=== PATIENT | female | born 1940 | race Caucasian/White ===

== ENCOUNTER 2016-12-17 14:09 | Outpatient (CLI) | payer MEDICARE, OTHER | END 2016-12-17 14:10 | disposition home or self-care (01) | DX: Z79.899 Other long term (current) drug therapy (principal); I10 Essential (primary) hypertension; E55.9 Vitamin D deficiency, unspecified; R73.09 Other abnormal glucose; E78.2 Mixed hyperlipidemia ==

== ENCOUNTER 2017-01-18 09:47 | Outpatient (CLI) | payer MEDICARE, OTHER | END 2017-01-18 09:48 | disposition home or self-care (01) | DX: Z12.31 Encounter for screening mammogram for malignant neoplasm of breast (principal) ==

== ENCOUNTER 2017-12-23 09:28 | Outpatient (CLI) | payer MEDICARE, OTHER ==
[2017-12-23 12:54] LABS: BASOPHILS % (AUTO) 0.4 %; EOSINOPHILS # (AUTO) 0.1 10^3/uL (0.0-0.7); EOSINOPHILS % (AUTO) 2.7 %; HGB - HEMOGLOBIN 12.8 g/dL (12.0-16.0); LYMPHOCYTES # (AUTO) 1.3 10^3/uL (1.5-3.5); LYMPHOCYTES % (AUTO) 26.9 %; MEAN CORPUSCULAR HEMOGLOBIN 32.2 pg (27.0-31.0); MEAN CORPUSCULAR HGB CONC 33.9 g/dL (32.0-36.0); MEAN CORPUSCULAR VOLUME 94.9 fL (81.0-99.0); MEAN PLATELET VOLUME 7.7 fL (7.9-10.8); MONOCYTES # (AUTO) 0.5 10^3/uL (0.0-1.0); MONOCYTES % (AUTO) 10.1 %; NEUTROPHILS # (AUTO) 2.9 10^3/uL (1.5-6.6); NEUTROPHILS % (AUTO) 59.9 %; PLT - PLATELET COUNT 188 10^3/uL (130-450); RED BLOOD COUNT 3.96 10^6/uL (4.20-5.40); WHITE BLOOD COUNT 4.9 x10^3/uL (4.8-10.8)
[2017-12-23 13:20] LABS: ALBUMIN 3.6 g/dL (3.2-5.5); ALBUMIN/GLOBULIN RATIO 1.4 (1.0-2.2); ALKALINE PHOSPHATASE 79 IU/L (42-121); ALT ALANINE AMINOTRANSFERASE 19 IU/L (10-60); AST ASPARTATE AMINOTRANSFERASE 21 IU/L (10-42); BILIRUBIN,TOTAL 0.7 mg/dL (0.2-1.0); BUN - BLOOD UREA NITROGEN 16 mg/dL (6-20); CALCIUM 8.2 mg/dL (8.5-10.3); CARBON DIOXIDE - CO2 26 mmol/L (21-32); CHLORIDE 101 mmol/L (101-111); CHOL/HDL RATIO 3.4 (<4.4); CHOLESTEROL 140 mg/dL; CREATININE 0.8 mg/dL (0.4-1.0); GFR - MDRD 69 (>89); GLUCOSE 95 mg/dL (70-100); HDL CHOLESTEROL 41 mg/dL; LDL CHOLESTEROL,CALCULATED 78 mg/dL; LDL/HDL RATIO 1.9 (<4.4); SODIUM 136 mmol/L (135-145); TOTAL PROTEIN 6.2 g/dL (6.7-8.2); VLDL CHOLESTEROL 21 mg/dL
[2017-12-23 13:35] LABS: HB2 TOTAL 13.3 g/dL; HEMOGLOBIN A1C 0.48 g/dL; HEMOGLOBIN A1C % 5.5 % (4.6-6.2)
== END 2017-12-23 09:29 | disposition home or self-care (01) ==
LOC: LAB.N 09:28
PROVIDERS: ATTEND Nurse Practitioner Primary Care
DX: M81.0 Age-related osteoporosis without current pathological fracture (principal); R73.01 Impaired fasting glucose; I10 Essential (primary) hypertension; E78.5 Hyperlipidemia, unspecified; Z79.899 Other long term (current) drug therapy
CPT/HCPCS: 36415; 80053; 80061; 82306; 83036; 83721; 84443; 85025

== ENCOUNTER 2017-12-31 16:20 | Outpatient (CLI) | payer MEDICARE, OTHER ==
--- NOTE | 2018-01-01 08:48 | XRAY Report ---
EXAM: CHEST RADIOGRAPHY EXAM DATE: 12/31/2017 04:50 PM. CLINICAL HISTORY: COUGH. Fall onto chest December 13. Persistent cough since. COMPARISON: 04/27/2014. TECHNIQUE: 2 views. FINDINGS: Lungs/Pleura: No focal opacities evident. No pleural effusion. No pneumothorax. Normal volumes. Mediastinum: Heart and mediastinal contours are unremarkable. Other: Rounded density projecting over the left humeral head likely is related to overlying garment s nap. IMPRESSION: No definite acute abnormality of the chest. [facility] Referring Provider Line: [phone] SITE ID: [id number]
--- NOTE | 2018-01-01 08:59 | XRAY Report ---
EXAM: LEFT HAND RADIOGRAPHY EXAM DATE: 12/31/2017 04:50 PM. CLINICAL HISTORY: Cough, hand pain left. Fall on outstretched hand injury December 13, still has swelling , bruising and decreased range of motion. COMPARISON: 04/22/2007 3 view exam. TECHNIQUE: 2 views. FINDINGS: Bones: New fracture of the mid to medial aspect of the base of the fifth metacarpal with intra-articu lar extension. Significant displacement is not demonstrated on these 2 views. Old, healed fracture de formity of the base of the fourth proximal phalanx. Joints: No subluxation. Degenerative disease, greatest at the thumb IP joint. Soft Tissues: Medial hand/wrist soft tissue swelling. IMPRESSION: 1. Two-view radiography demonstrates an intra-articular fracture of the base of the fifth metacarpal, without substantial displacement demonstrated. 2. Chronic findings, as above. [facility] Referring Provider Line: [phone] SITE ID: [id number]
== END 2017-12-31 16:21 | disposition home or self-care (01) ==
LOC: DI 16:20
PROVIDERS: ATTEND Nurse Practitioner Primary Care
DX: R05 Cough (principal); S62.346A Nondisplaced fracture of base of fifth metacarpal bone, right hand, initial encounter for closed fracture
CPT/HCPCS: 71046

== ENCOUNTER 2018-01-03 13:33 | Outpatient (CLI) | payer MEDICARE, OTHER ==
--- NOTE | 2018-01-03 16:05 | DEXA Report ---
DEXA SCAN: 01/03/2018 CLINICAL INDICATION: Postmenopausal. TECHNIQUE: Dual energy x-ray absorptiometry (DXA) was performed on a clickTRUE system. Regions measured are the AP spine, femoral neck, and, if needed, forearm. COMPARISON: None. In accordance with the International Society for Clinical Densitometry (ISCD) guidelines, data from previous exams may be reanalyzed using current recommendations and techniques. This is done to allow a more accurate basis for comparison with the current study. FINDINGS Data for the lumbar spine is as follows: REGION BMD (g/cm/cm) T-SCORE Z-SCORE L1 0.723 -3.4 -1.6 L2 0.877 -2.7 -0.9 L3 0.957 -2.0 -0.3 L4 1.142 -0.5 1.3 L1-L4 0.943 -2.0 -0.2 L2-L4 1.001 -1.7 0.1 NOTE: All evaluable vertebrae are used for classification. Data for the hip is as follows: REGION BMD (g/cm/cm) T-SCORE Z-SCORE Neck 0.763 -2.0 0.1 TOTAL 0.708 -2.4 -0.5 NOTE: The femoral neck or total proximal femur, whichever is lowest, is used for classification. IMPRESSION WHO CLASSIFICATION BASED ON THE INTERNATIONAL REFERENCE STANDARD IS OSTEOPENIA. FRACTURE RISK IS INCREASED. RECOMMENDATION: Patients with diagnosis of osteoporosis or osteopenia should have regular bone mineral density assessment. For those eligible for Medicare, routine testing is allowed once every 2 years. Testing frequency can be increased for patients who have rapidly progressing disease or for those who are receiving medical therapy to restore bone mass. COMMENT World Health Organization (WHO) definitions for osteoporosis and osteopenia: NORMAL BMD: T-score at 1.0 or higher, fracture risk is low. OSTEOPENIA BMD: T-score between 1.0 and -2.5, fracture risk is increased. OSTEOPOROSIS BMD: T-score at 2.5 or lower, fracture risk high. National Osteoporosis Foundation recommends: 1. Obtain adequate dietary calcium (at least 1200 mg per day) and vitamin D (400 -800 international units per day). 2. Participate, as appropriate, in regular weightbearing and muscle- strengthening exercise. 3. Avoid tobacco use and reduce alcohol and caffeine intake. 4. For more detailed information see the website at www.NOF.org. TD: 01/03/2018 15:24 MTDD
== END 2018-01-03 13:34 | disposition home or self-care (01) ==
LOC: DI 13:33
PROVIDERS: ATTEND Nurse Practitioner Primary Care
DX: M85.89 Other specified disorders of bone density and structure, multiple sites (principal)
CPT/HCPCS: 77080

== ENCOUNTER 2018-02-11 09:11 | Outpatient (CLI) | payer MEDICARE, OTHER ==
[2018-02-11 09:30] LABS: BASOPHILS # (AUTO) 0.1 10^3/uL (0.0-0.1); BASOPHILS % (AUTO) 0.9 %; EOSINOPHILS # (AUTO) 0.5 10^3/uL (0.0-0.7); EOSINOPHILS % (AUTO) 6.2 %; HGB - HEMOGLOBIN 13.6 g/dL (12.0-16.0); LYMPHOCYTES # (AUTO) 1.7 10^3/uL (1.5-3.5); LYMPHOCYTES % (AUTO) 19.7 %; MEAN CORPUSCULAR HEMOGLOBIN 31.6 pg (27.0-31.0); MEAN CORPUSCULAR HGB CONC 33.4 g/dL (32.0-36.0); MEAN CORPUSCULAR VOLUME 94.6 fL (81.0-99.0); MEAN PLATELET VOLUME 7.2 fL (7.9-10.8); MONOCYTES # (AUTO) 0.9 10^3/uL (0.0-1.0); NEUTROPHILS # (AUTO) 5.5 10^3/uL (1.5-6.6); NEUTROPHILS % (AUTO) 63.2 %; PLT - PLATELET COUNT 235 10^3/uL (130-450); RED BLOOD COUNT 4.31 10^6/uL (4.20-5.40); RED CELL DISTRIBUTION WIDTH 13.9 % (12.0-15.0); WHITE BLOOD COUNT 8.7 x10^3/uL (4.8-10.8)
[2018-02-11 09:49] LABS: ALBUMIN 4.2 g/dL (3.2-5.5); ALBUMIN/GLOBULIN RATIO 1.4 (1.0-2.2); BILIRUBIN,TOTAL 1.2 mg/dL (0.2-1.0); CALCIUM 9.3 mg/dL (8.5-10.3); CREATININE 0.9 mg/dL (0.4-1.0); TOTAL PROTEIN 7.2 g/dL (6.7-8.2)
--- NOTE | 2018-02-11 10:16 | XRAY Report ---
TWO-VIEW CHEST: 02/11/2018 CLINICAL INDICATION: Respiratory crackles. COMPARISON: 12/31/2017. FINDINGS: Frontal and lateral views of the chest demonstrate a normal cardiac silhouette. The lungs remain clear. No effusion or pneumothorax is present. IMPRESSION: NO EVIDENCE OF ACUTE CARDIOPULMONARY DISEASE. NO SIGNIFICANT INTERVAL CHANGE. TD: 02/11/2018 10:15
== END 2018-02-11 09:12 | disposition home or self-care (01) ==
LOC: LAB 09:11
PROVIDERS: ATTEND Physician Assistant Medical
DX: R09.89 Other specified symptoms and signs involving the circulatory and respiratory systems (principal); R60.0 Localized edema
CPT/HCPCS: 36415; 71046; 80053; 83880; 85025

== ENCOUNTER 2018-04-16 08:00 | Outpatient (CLI) | payer MEDICARE, OTHER | END 2018-04-16 23:59 | LOC: LAB.R 08:00 | PROVIDERS: ATTEND Obstetrics & Gynecology | DX: N76.4 Abscess of vulva (principal) | CPT/HCPCS: 87070; 87077; 87181; 87205 ==

== ENCOUNTER 2019-05-28 17:02 | Emergency (ER) | payer MEDICARE, OTHER ==
[2019-05-28] MEDS ORDERED: oxyCODONE 5 MG TABLET PO STA (17:12)
[2019-05-28] MEDS ORDERED: ONDANSETRON ODT 4 MG TABLET TL STA (17:12)
[2019-05-28] MEDS ORDERED: TETANUS/DIPHTHERIA/PERTUSSIS 0.5 ML SYRINGE IM ONE (17:12)
--- NOTE | 2019-05-28 17:13 | ED Physician Documentation ---
PD HPI HEAD INJURY - Stated complaint Stated Complaint: GLF/HEAD INJ/CONFUSION/DIZZY - History obtained from History obtained from: Patient - History of Present Illness Mechanism of head injury: Fell (She tripped and fell over her cat hitting the ground. She does not remember it. Loss of consciousness is not clear. She has an increasing headache on the right side. She is also mildly nauseous. No other injury) Review of Systems Ten Systems: 10 systems reviewed and negative Constitutional: denies: Fever, Chills Ears: denies: Loss of hearing, Ear pain Nose: denies: Rhinorrhea / runny nose, Congestion Respiratory: denies: Dyspnea, Cough GI: reports: Nausea. 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 Neuro:  HEENT: Cataracts - Present Medications Home Medications: Ambulatory Orders Medication Instructions Recorded Confirmed DULoxetine [Cymbalta] 20 mg PO DAILY 08/11/13 08/23/16 Lisinopril [Zestril] 5 mg PO DAILY 08/11/13 08/23/16 Simvastatin [Zocor] 5 mg PO DAILY 08/11/13 08/23/16 hydroCHLOROthiazide [Hydrodiuril] 12.5 mg PO DAILY 08/11/13 08/23/16 - Allergies Allergies/Adverse Reactions: Allergies Allergy/AdvReac Type Severity Reaction Status Date / Time No Known Drug Allergies Allergy Verified 05/28/19 17:13 - Social History Does the pt smoke?: No Smoking Status: Never smoker Does the pt drink ETOH?: No Does the pt have substance abuse?: No - Immunizations Immunizations are current?: Yes PD ED PE NORMAL - Vitals Vital signs reviewed: Yes - General General: Alert and oriented X 3, No acute distress - HEENT HEENT: PERRL, EOMI, Other (There is a puncture wound on the right scalp just posterior and superior to the lutheran, it is too small to require specific wound care.) - Neck Neck: Other (Very mild upper C-spine tenderness) - Cardiac Cardiac: RRR, No murmur - Respiratory Respiratory: No respiratory distress, Clear bilaterally - Abdomen Abdomen: Soft, Non tender - Back Back: No spinal TTP - Extremities Extremities: No deformity, No tenderness to palpate, Normal ROM s pain, No edema, No calf tenderness / cord - Neuro Neuro: Alert and oriented X 3, No motor deficit, No sensory deficit, Normal speech Results - Vitals Vitals: Vital Signs - 24 hr 05/28/19 17:09 Temperature 36.4 C L Heart Rate 72 Respiratory 16 Rate Blood Pressure 140/81 H O2 Saturation 100 Oxygen O2 Source Room air - Rads (name of study) Ct Head Radiology: EMP read contemporaneously (ventriculomegaly, sm vess ischemic dz) CT C spine Radiology: EMP read contemporaneously (NAD) PD MEDICAL DECISION MAKING - ED course ED course: 79-year-old woman with a fall today, tripped over a cat and some concussive symptoms. Head CT and cervical spine CT are normal, but there is a concern for ventriculomegaly. She has not had any trouble with incontinence. She says her memory is fine but the daughter disagrees. Outpatient work-up for potential normal hydrocephalus was advised with her PCP. Departure - Departure Disposition: 01 Home, Self Care Clinical Impression: Concussion Qualifiers: Encounter type: initial encounter Loss of consciousness presence/duration: with LOC of 30 min or less Qualified Code(s): S06.0X1A - Concussion with loss of consciousness of 30 minutes or less, initial encounter Condition: Good Record reviewed to determine appropriate education?: Yes Instructions: ED Head Injury Closed Comments: As discussed, your head CT is concerning for something called "normal pressure hydrocephalus." Discussed this with your primary care physician in follow-up. Return for new or worsening symptoms.
--- NOTE | 2019-05-28 17:54 | CT Report ---
Reason: head inj Procedure Date: 05/28/2019 Accession Number: [id number] / [id number] Procedure: CT - CERVICAL SPINE WO CPT Code: FULL RESULT: EXAM: CT CERVICAL SPINE WITHOUT CONTRAST DATE: 05/28/2019 05:30 PM. HISTORY: Head inj. COMPARISONS: None. TECHNIQUE: Thin-section axial images were acquired of the cervical spine without contrast. Post-processing: Coronal and sagittal reformats. Other: None. In accordance with CT protocol optimization, one or more of the following dose reduction techniques were utilized for this exam: automated exposure control, adjustment of mA and/or KV based on patient size, or use of iterative reconstructive technique. FINDINGS: Alignment: No evidence of dislocation. Bones: No fracture or bone lesion. Interspace Levels/Facets: There is moderate mid and lower cervical spine degenerative disease. Spinal canal: No significant abnormalities are seen. Other: No evidence of prevertebral soft tissue swelling or apical pneumothorax. IMPRESSION: No evidence of cervical spine fracture or dislocation. [facility]
--- NOTE | 2019-05-28 17:56 | CT Report ---
Reason: head inj Procedure Date: 05/28/2019 Accession Number: [id number] / [id number] Procedure: CT - HEAD WO CPT Code: FULL RESULT: EXAM: CT HEAD EXAM DATE: 05/28/2019 05:30 PM. CLINICAL HISTORY: Head inj. COMPARISON: None. TECHNIQUE: Multiaxial CT images were obtained from the foramen magnum to the vertex. Reformats: Sagittal and coronal. IV contrast: None. In accordance with CT protocol optimization, one or more of the following dose reduction techniques were utilized for this exam: automated exposure control, adjustment of mA and/or KV based on patient size, or use of iterative reconstructive technique. FINDINGS: Parenchyma: No intraparenchymal hemorrhage. No evidence of mass, midline shift, or CT findings of infarction. Yanez-white differentiation is distinct. Periventricular white matter hypodensity likely represents small vessel ischemic disease. Extraaxial Spaces: Normal for age. No subdural or epidural collections identified. Ventricles: There is ventriculomegaly. No acute abnormalities are seen. Sinuses and Orbits: No evidence of sinusitis. There is linear hyperdensity surrounding the left orbital globe. Bones: No evidence of fracture or calvarial defect. Other: None. IMPRESSION: 1. No acute intracranial CT abnormality. 2. There is mild ventriculomegaly. 3. Periventricular white matter hypodensity likely represents small vessel ischemic disease. [facility]
[2019-05-28 18:06] VITALS: BP 129/78
== END 2019-05-28 18:08 | disposition home or self-care (01) ==
LOC: ED 17:02
DX: S06.0X1A Concussion with loss of consciousness of 30 minutes or less, initial encounter (principal); S01.03XA Puncture wound without foreign body of scalp, initial encounter; W01.0XXA Fall on same level from slipping, tripping and stumbling without subsequent striking against object, initial encounter; Y92.009 Unspecified place in unspecified non-institutional (private) residence as the place of occurrence of the external cause; Z23 Encounter for immunization; G93.89 Other specified disorders of brain; M50.30 Other cervical disc degeneration, unspecified cervical region; I10 Essential (primary) hypertension
CPT/HCPCS: 70450; 72125; 90471; 90715; 99284; A9270; Q0162

== ENCOUNTER → 2019-06-03 | Outpatient (CLI) | payer MEDICARE, OTHER ==
[2019-06-03 18:53] LABS: BASOPHILS % (AUTO) 0.4 %; EOSINOPHILS # (AUTO) 0.3 10^3/uL (0.0-0.7); EOSINOPHILS % (AUTO) 3.5 %; LYMPHOCYTES # (AUTO) 1.9 10^3/uL (1.5-3.5); LYMPHOCYTES % (AUTO) 22.4 %; MEAN CORPUSCULAR HEMOGLOBIN 30.9 pg (27.0-31.0); MEAN CORPUSCULAR HGB CONC 31.6 g/dL (32.0-36.0); MEAN CORPUSCULAR VOLUME 97.9 fL (81.0-99.0); MEAN PLATELET VOLUME 9.6 fL (7.9-10.8); MONOCYTES # (AUTO) 0.7 10^3/uL (0.0-1.0); MONOCYTES % (AUTO) 8.5 %; NEUTROPHILS # (AUTO) 5.4 10^3/uL (1.5-6.6); NEUTROPHILS % (AUTO) 64.7 %; PLT - PLATELET COUNT 241 10^3/uL (130-450); RED BLOOD COUNT 4.21 10^6/uL (4.20-5.40); RED CELL DISTRIBUTION WIDTH 13.2 % (12.0-15.0); WHITE BLOOD COUNT 8.4 x10^3/uL (4.8-10.8)
[2019-06-03 19:18] LABS: ALBUMIN 4.1 g/dL (3.2-5.5); ALBUMIN/GLOBULIN RATIO 1.4 (1.0-2.2); BILIRUBIN,TOTAL 0.8 mg/dL (0.2-1.0); CALCIUM 9.1 mg/dL (8.5-10.3); CREATININE 0.9 mg/dL (0.4-1.0)
== END ==
LOC: LAB.WCP 15:29
PROVIDERS: ATTEND Family Medicine
DX: R41.3 Other amnesia (principal)
CPT/HCPCS: 36415; 80053; 82607; 83921; 84443; 85025

== ENCOUNTER 2019-09-18 08:55 | Outpatient (CLI) | payer MEDICARE, OTHER ==
[2019-09-18 12:40] LABS: BASOPHILS % (AUTO) 0.5 %; EOSINOPHILS # (AUTO) 0.2 10^3/uL (0.0-0.7); EOSINOPHILS % (AUTO) 3.9 %; HGB - HEMOGLOBIN 13.2 g/dL (12.0-16.0); LYMPHOCYTES # (AUTO) 1.2 10^3/uL (1.5-3.5); LYMPHOCYTES % (AUTO) 19.8 %; MEAN CORPUSCULAR HEMOGLOBIN 31.9 pg (27.0-31.0); MEAN CORPUSCULAR HGB CONC 32.4 g/dL (32.0-36.0); MEAN CORPUSCULAR VOLUME 98.6 fL (81.0-99.0); MEAN PLATELET VOLUME 9.9 fL (7.9-10.8); MONOCYTES # (AUTO) 0.6 10^3/uL (0.0-1.0); MONOCYTES % (AUTO) 10.1 %; NEUTROPHILS # (AUTO) 3.9 10^3/uL (1.5-6.6); NEUTROPHILS % (AUTO) 65.4 %; PLT - PLATELET COUNT 224 10^3/uL (130-450); RED BLOOD COUNT 4.14 10^6/uL (4.20-5.40); RED CELL DISTRIBUTION WIDTH 13.2 % (12.0-15.0); WHITE BLOOD COUNT 5.9 x10^3/uL (4.8-10.8)
[2019-09-18 12:51] LABS: ALBUMIN 3.8 g/dL (3.2-5.5); ALBUMIN/GLOBULIN RATIO 1.3 (1.0-2.2); ALKALINE PHOSPHATASE 86 IU/L (42-121); ALT ALANINE AMINOTRANSFERASE 12 IU/L (10-60); AST ASPARTATE AMINOTRANSFERASE 14 IU/L (10-42); BILIRUBIN,TOTAL 1.1 mg/dL (0.2-1.0); BUN - BLOOD UREA NITROGEN 19 mg/dL (6-20); CALCIUM 8.8 mg/dL (8.5-10.3); CARBON DIOXIDE - CO2 28 mmol/L (21-32); CHLORIDE 106 mmol/L (101-111); CHOL/HDL RATIO 2.9 (<4.4); CHOLESTEROL 150 mg/dL; CREATININE 0.8 mg/dL (0.4-1.0); GFR - MDRD 69 (>89); GLUCOSE 103 mg/dL (70-100); HDL CHOLESTEROL 52 mg/dL; LDL CHOLESTEROL,CALCULATED 76 mg/dL; LDL/HDL RATIO 1.5 (<4.4); SODIUM 140 mmol/L (135-145); TOTAL PROTEIN 6.7 g/dL (6.7-8.2); VLDL CHOLESTEROL 22 mg/dL
[2019-09-18 13:05] LABS: HB2 TOTAL 13.3 g/dL; HEMOGLOBIN A1C 0.58 g/dL; HEMOGLOBIN A1C % 6.1 % (4.6-6.2)
== END 2019-09-18 23:59 | disposition home or self-care (01) ==
LOC: LAB.WCP 08:55
PROVIDERS: ATTEND Family Medicine
DX: E78.5 Hyperlipidemia, unspecified (principal); R73.01 Impaired fasting glucose; I10 Essential (primary) hypertension
CPT/HCPCS: 36415; 80053; 80061; 82607; 83036; 83721; 84443; 85025

== ENCOUNTER 2020-03-31 16:24 | Outpatient (CLI) | payer MEDICARE, OTHER ==
--- NOTE | 2020-04-01 08:49 | XRAY Report ---
PROCEDURE: Wrist 4 View LT INDICATIONS: LEFT WRIST PAIN TECHNIQUE: 4 views of the wrist were acquired. COMPARISON: Left hand radiograph dated 12/31/2017. FINDINGS: Bones: No fractures or dislocations. No suspicious bony lesions. Mild osteoarthritic changes throu ghout wrist joints are seen more prominent at first CMC joint. Widening of scapholunate interval is s een concerning for scapholunate ligament injury. Scaphoid view: Scaphoid is grossly intact. Small intraosseous cysts in mid to distal scaphoid is not ed. Soft tissues: No suspicious soft tissue calcifications. Soft tissue swelling around wrist joint is seen. IMPRESSION: No gross acute left wrist fracture or dislocation. Wrist soft tissue swelling. Mild wrist joint osteo arthritis. Widening of scapholunate interval suggestive of scapholunate ligament injury. Reviewed by: Dutch Fowler MD on 04/01/2020 8:48 AM PDT Approved by: Dutch Fowler MD on 04/01/2020 8:48 AM PDT Station ID: [id number]
== END 2020-03-31 16:25 | disposition home or self-care (01) ==
LOC: DI 16:24
PROVIDERS: ATTEND Physician Assistant
DX: M19.032 Primary osteoarthritis, left wrist (principal); M79.89 Other specified soft tissue disorders

== ENCOUNTER 2020-12-19 13:34 | Outpatient (CLI) | payer MEDICARE, OTHER ==
--- NOTE | 2020-12-19 14:46 | XRAY Report ---
PROCEDURE: Chest 2 View X-Ray INDICATIONS: BRONCHITIS TECHNIQUE: 2 view(s) of the chest. COMPARISON: 02/11/2018 chest x-ray FINDINGS: Surgical changes and devices: None. Lungs and pleura: No pleural effusions or pneumothorax. Lungs are clear. Mediastinum: Mediastinal contours are normal. Heart size is normal. Bones and chest wall: No suspicious bony abnormalities. Soft tissues appear unremarkable. IMPRESSION: No acute process. Reviewed by: Js Christianson MD on 12/19/2020 2:44 PM PDT Approved by: Js Christianson MD on 12/19/2020 2:44 PM PDT Station ID: [id number]
== END 2020-12-19 23:59 | disposition home or self-care (01) ==
LOC: DI.N 13:34
PROVIDERS: ATTEND Physician Assistant Medical
DX: J40 Bronchitis, not specified as acute or chronic (principal)
CPT/HCPCS: 71046; U0004

== ENCOUNTER 2021-01-24 08:00 | Outpatient (CLI) | payer MEDICARE, OTHER ==
[2021-01-24 13:23] LABS: BASOPHILS % (AUTO) 0.6 %; EOSINOPHILS # (AUTO) 0.2 10^3/uL (0.0-0.7); EOSINOPHILS % (AUTO) 3.9 %; HCT - HEMATOCRIT 44.1 % (37.0-47.0); HGB - HEMOGLOBIN 13.7 g/dL (12.0-16.0); LYMPHOCYTES # (AUTO) 1.4 10^3/uL (1.5-3.5); MEAN CORPUSCULAR HEMOGLOBIN 30.7 pg (27.0-31.0); MEAN CORPUSCULAR HGB CONC 31.1 g/dL (32.0-36.0); MEAN CORPUSCULAR VOLUME 98.9 fL (81.0-99.0); MEAN PLATELET VOLUME 9.9 fL (7.9-10.8); MONOCYTES # (AUTO) 0.5 10^3/uL (0.0-1.0); MONOCYTES % (AUTO) 8.1 %; NEUTROPHILS % (AUTO) 64.1 %; PLT - PLATELET COUNT 222 10^3/uL (130-450); RED BLOOD COUNT 4.46 10^6/uL (4.20-5.40); RED CELL DISTRIBUTION WIDTH 13.5 % (12.0-15.0); WHITE BLOOD COUNT 6.2 x10^3/uL (4.8-10.8)
[2021-01-24 13:46] LABS: ALBUMIN/GLOBULIN RATIO 1.5 (1.0-2.2); ALKALINE PHOSPHATASE 82 IU/L (42-121); ALT ALANINE AMINOTRANSFERASE 12 IU/L (10-60); AST ASPARTATE AMINOTRANSFERASE 16 IU/L (10-42); BILIRUBIN,TOTAL 1.2 mg/dL (0.2-1.0); BUN - BLOOD UREA NITROGEN 17 mg/dL (6-20); CALCIUM 9.1 mg/dL (8.5-10.3); CARBON DIOXIDE - CO2 27 mmol/L (21-32); CHLORIDE 110 mmol/L (101-111); CHOL/HDL RATIO 4.2 (<4.4); CHOLESTEROL 252 mg/dL; CREATININE 0.8 mg/dL (0.4-1.0); GFR - MDRD 69 (>89); GLUCOSE 98 mg/dL (70-100); HDL CHOLESTEROL 60 mg/dL; LDL CHOLESTEROL,CALCULATED 159 mg/dL; LDL/HDL RATIO 2.7 (<4.4); POTASSIUM 4.2 mmol/L (3.5-5.0); SODIUM 143 mmol/L (135-145); TOTAL PROTEIN 6.6 g/dL (6.7-8.2); TRIGLYCERIDES 165 mg/dL; VLDL CHOLESTEROL 33 mg/dL
[2021-01-24 13:52] LABS: THYROID STIMULATING HORMONE 4.68 uIU/mL (0.34-5.60)
[2021-01-24 13:53] LABS: ESTIMATED AVERAGE GLUCOSE 114 mg/dL (70-100); HEMOGLOBIN A1c% 5.6 % (4.27-6.07)
[2021-01-24 13:59] LABS: CREATININE,URINE 211.5 mg/dL; MICROALBUM/CREATININE RATIO,UR 1.9 ug/mg (<30.0); MICROALBUMIN,URINE 0.4 mg/dL (0-300.0)
== END 2021-01-24 23:59 | disposition home or self-care (01) ==
LOC: LAB.WCP 08:00
PROVIDERS: ATTEND Internal Medicine
DX: I10 Essential (primary) hypertension (principal); E78.5 Hyperlipidemia, unspecified; M81.0 Age-related osteoporosis without current pathological fracture; R73.01 Impaired fasting glucose; E53.8 Deficiency of other specified B group vitamins
CPT/HCPCS: 36415; 80053; 80061; 82043; 82306; 82570; 82607; 83036; 83721; 84443; 85025

== ENCOUNTER 2021-09-25 09:47 | Outpatient (CLI) | payer MEDICARE, OTHER ==
[2021-09-25 12:37] LABS: BASOPHILS % (AUTO) 0.6 %; EOSINOPHILS # (AUTO) 0.2 10^3/uL (0.0-0.7); EOSINOPHILS % (AUTO) 2.4 %; HCT - HEMATOCRIT 43.9 % (37.0-47.0); HGB - HEMOGLOBIN 14.1 g/dL (12.0-16.0); LYMPHOCYTES # (AUTO) 1.6 10^3/uL (1.5-3.5); LYMPHOCYTES % (AUTO) 23.7 %; MEAN CORPUSCULAR HGB CONC 32.1 g/dL (32.0-36.0); MEAN CORPUSCULAR VOLUME 96.5 fL (81.0-99.0); MEAN PLATELET VOLUME 9.5 fL (7.9-10.8); MONOCYTES # (AUTO) 0.5 10^3/uL (0.0-1.0); MONOCYTES % (AUTO) 8.3 %; NEUTROPHILS # (AUTO) 4.2 10^3/uL (1.5-6.6); NEUTROPHILS % (AUTO) 64.7 %; PLT - PLATELET COUNT 210 10^3/uL (130-450); RED BLOOD COUNT 4.55 10^6/uL (4.20-5.40); WHITE BLOOD COUNT 6.5 x10^3/uL (4.8-10.8)
[2021-09-25 12:41] LABS: ESTIMATED AVERAGE GLUCOSE 120 mg/dL (70-100); HEMOGLOBIN A1c% 5.8 % (4.27-6.07)
[2021-09-25 12:45] LABS: THYROID STIMULATING HORMONE 5.06 uIU/mL (0.34-5.60)
[2021-09-25 12:48] LABS: CREATININE,URINE 228.5 mg/dL; MICROALBUM/CREATININE RATIO,UR 5.3 ug/mg (<30.0); MICROALBUMIN,URINE 1.2 mg/dL (0-300.0)
[2021-09-25 13:34] LABS: ALBUMIN 3.8 g/dL (3.2-5.5); ALBUMIN/GLOBULIN RATIO 1.4 (1.0-2.2); ALKALINE PHOSPHATASE 83 IU/L (42-121); ALT ALANINE AMINOTRANSFERASE 13 IU/L (10-60); AST ASPARTATE AMINOTRANSFERASE 15 IU/L (10-42); BILIRUBIN,TOTAL 1.3 mg/dL (0.2-1.0); BUN - BLOOD UREA NITROGEN 17 mg/dL (6-20); CALCIUM 9.2 mg/dL (8.5-10.3); CARBON DIOXIDE - CO2 30 mmol/L (21-32); CHLORIDE 103 mmol/L (101-111); CHOL/HDL RATIO 2.2 (<4.4); CHOLESTEROL 135 mg/dL; CREATININE 0.9 mg/dL (0.4-1.0); GFR - MDRD 60 (>89); GLUCOSE 102 mg/dL (70-100); HDL CHOLESTEROL 61 mg/dL; LDL CHOLESTEROL,CALCULATED 54 mg/dL; LDL/HDL RATIO 0.9 (<4.4); POTASSIUM 4.2 mmol/L (3.5-5.0); SODIUM 140 mmol/L (135-145); TOTAL PROTEIN 6.5 g/dL (6.7-8.2); TRIGLYCERIDES 102 mg/dL; VLDL CHOLESTEROL 20 mg/dL
== END 2021-09-25 23:59 | disposition home or self-care (01) ==
LOC: LAB.WCP 09:47
PROVIDERS: ATTEND Internal Medicine
DX: I10 Essential (primary) hypertension (principal); E78.5 Hyperlipidemia, unspecified; R73.01 Impaired fasting glucose; E53.8 Deficiency of other specified B group vitamins; G31.84 Mild cognitive impairment of uncertain or unknown etiology
CPT/HCPCS: 36415; 80053; 80061; 82043; 82570; 82607; 83036; 83721; 84443; 85025

== ENCOUNTER 2022-05-07 11:38 | Emergency (ER) | payer MEDICARE, OTHER ==
[2022-05-07] MEDS ORDERED: TETANUS/DIPHTHERIA/PERTUSSIS 0.5 ML SYRINGE IM ONE (12:00)
[2022-05-07] MEDS ORDERED: LIDOCAINE-EPINEPH-TETRACAINE 3 ML SYRINGE TOP STA (12:01)
--- NOTE | 2022-05-07 12:56 | CT Report ---
PROCEDURE: HEAD WO INDICATIONS: GLF, HEAD INJURY TECHNIQUE: Noncontrast 4.5 mm thick angled axial sections acquired from the foramen magnum to the vertex. For r adiation dose reduction, the following was used: automated exposure control, adjustment of mA and/or kV according to patient size. COMPARISON: 05/28/2019 FINDINGS: Image quality: Excellent. CSF spaces: Basal cisterns are patent. No extra-axial fluid collections. Stable ventriculomegaly. Brain: No midline shift. No intracranial masses or hemorrhage. Yanez-white matter interface is norm al. Diffuse volume loss, with stable ventriculomegaly and moderate to severe small vessel ischemic ch edwar. Skull and face: Calvarium and visualized facial bones are intact, without suspicious lesions. Sinuses: Visualized sinuses and mastoids are clear. IMPRESSION: 1. Stable ventriculomegaly, diffuse volume loss, moderate to severe small vessel ischemic change. 2. No evidence of acute intracranial process. Reviewed by: Andre De La Paz MD on 05/07/2022 11:54 AM HEIDI Approved by: Andre De La Paz MD on 05/07/2022 11:54 AM HEIDI Station ID: [id number]
--- NOTE | 2022-05-07 12:56 | XRAY Report ---
PROCEDURE: Ankle 3 View LT INDICATIONS: GLF, PAIN TECHNIQUE: 3 views of the ankle were acquired. COMPARISON: None FINDINGS: Bones: Oblique fracture involving lateral malleolus is seen without significant displacement at fract ure site. Ankle mortise is normally aligned. No suspicious bony lesions. Soft tissues: Lateral ankle soft tissue swelling is seen. No tibiotalar joint effusion. Achilles te ndon appears normal. IMPRESSION: Nondisplaced lateral malleolus fracture with overlying soft tissue swelling. Intact ankl e mortise. Reviewed by: Dutch Fowler MD on 05/07/2022 11:55 AM HEIDI Approved by: Dutch Fowler MD on 05/07/2022 11:55 AM HEIDI Station ID: [id number]
--- NOTE | 2022-05-07 12:59 | CT Report ---
PROCEDURE: CERVICAL SPINE WO INDICATIONS: GLF TECHNIQUE: Noncontrast 3 mm thick sections acquired from the skull base to the T4 level. Sagittal and coronal r eformats were then constructed. For radiation dose reduction, the following was used: automated exp osure control, adjustment of mA and/or kV according to patient size. COMPARISON: 05/28/2019. FINDINGS: Image quality: Excellent. Bones: No fractures or dislocations. Visualized superior ribs are intact. Bilateral facet arthropat hy, most notably at C3-C4 and C4-C5. Multilevel bony foraminal narrowing, most notably at C3-4 throug h C5-6. Soft tissues: Prevertebral soft tissues are normal in thickness. No paravertebral hematomas. No ap ical pneumothoraces. IMPRESSION: 1. No evidence of acute cervical fracture or dislocation. 2. 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 Reviewed by: Anrde De La Paz MD on 05/07/2022 11:57 AM HEIDI Approved by: Andre De La Paz MD on 05/07/2022 11:57 AM HEIDI Station ID: [id number]
--- NOTE | 2022-05-07 13:25 | ED Physician Documentation ---
History of Present Illness - Stated complaint Stated Complaint: GLF - Chief complaint Chief Complaint: Laceration - History obtained from History obtained from: Family - History of Present Illness Timing: Last night - Additonal information Additional information: 82-year-old female with history of dementia presents for evaluation after fall. Patient does not remember falling, however her stated that he heard a thump and found her on the floor of the kitchen. Patient has a laceration on the back of her head and is complaining of left ankle pain. states that patient is acting at her baseline, she does not take blood thinners. Does not know when her last tetanus shot was. 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 Neuro:  HEENT: Cataracts - Present Medications Home Medications: Ambulatory Orders Medication Instructions Recorded Confirmed Donepezil HCl [Donepezil HCl Odt] 10 mg PO DAILY 05/07/22 05/07/22 Rosuvastatin Calcium [Crestor] 20 mg PO DAILY 05/07/22 05/07/22 - Allergies Allergies/Adverse Reactions: Allergies Allergy/AdvReac Type Severity Reaction Status Date / Time meperidine [From Demerol] Allergy Unknown Verified 05/07/22 11:49 vitamin e oil Allergy Unknown Uncoded 05/07/22 11:49 - Social History Does the pt smoke?: No Smoking Status: Never smoker Does the pt drink ETOH?: No Does the pt have substance abuse?: No - Immunizations Immunizations are current?: Yes - POLST Patient has POLST: No PD ED PE NORMAL - Vitals Vital signs reviewed: Yes - General General: No acute distress, Well developed/nourished, Other (AO x2) - HEENT HEENT: PERRL, EOMI, Ears normal, Pharynx benign, Other (Large 5cm laceration occiput of scalp) - Neck Neck: Supple, no meningeal sign, No bony TTP, No adenopathy - Cardiac Cardiac: RRR, No murmur, Strong equal pulses - Respiratory Respiratory: No respiratory distress, Clear bilaterally - Abdomen Abdomen: Soft, Non tender, Non distended - Derm Derm: Normal color, Warm and dry, Other (5cm horizontal laceration occiput scalp, clean margins) - Extremities Extremities: No edema, Other (L lateral malleolar TTP) - 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, No motor deficit, No sensory deficit, Normal speech Verbal: Confused - Psych Psych: Normal mood, Normal affect Results - Vitals Vitals: Vital Signs - 24 hr 05/07/22 13:29 Temperature 36.4 C L Heart Rate 59 L Respiratory 16 Rate Blood Pressure 134/72 H O2 Saturation 98 Oxygen O2 Source Room air Procedures - Laceration (location) Scalp Wound type: Linear, Into subcut fat Anesthesia: LET Wound preparation: Irrigated copiously NS, Limited undermining Skin layer closure: Gloria, Other (8) Other: Patient tolerated well, No complications, Neurovascular intact, Dressing applied, Tetanus booster given PD MEDICAL DECISION MAKING - ED course ED course: Ground-level fall with scalp laceration. Laceration repaired per procedure notes. Tetanus shot updated in department. Patient found to have lateral malleoli are fracture, she was placed in stirrup splint and was given number for orthopedics in [facility]. Patient was given a walker for home use. Discharged home in stable condition. Departure - Departure Disposition: 01 Home, Self Care Clinical Impression: Scalp laceration, Ankle fracture Condition: Stable Instructions: ED Laceration Scalp Stitch Or Stap, ED Fx Ankle Lateral Malleolus Follow-Up: Luiz Ruggiero MD [Provider Admit Priv/Credential] - Comments: [facility] [address] [place] [address] RETURN IN 7-10 DAYS FOR STAPLE REMOVAL Discharge Date/Time: 05/07/22 13:41
[2022-05-07 13:30] VITALS: BP 134/72
== END 2022-05-07 13:41 | disposition home or self-care (01) ==
LOC: ED 11:38
DX: S01.01XA Laceration without foreign body of scalp, initial encounter (principal); S82.65XA Nondisplaced fracture of lateral malleolus of left fibula, initial encounter for closed fracture; W18.30XA Fall on same level, unspecified, initial encounter; I10 Essential (primary) hypertension; Z23 Encounter for immunization; Z71.85 Encounter for immunization safety counseling
CPT/HCPCS: 12002; 90471; 99284

== ENCOUNTER 2022-06-20 13:36 | Outpatient (CLI) | payer MEDICARE, OTHER ==
--- NOTE | 2022-06-20 14:39 | XRAY Report ---
PROCEDURE: Ankle 3 View LT INDICATIONS: FX OF L FIBULA TECHNIQUE: 3 views of the ankle were acquired. COMPARISON: May 25, 2022 FINDINGS: Bones: Again noted is a stable minimally displaced fracture involving the lateral malleolus. No new a cute fractures or dislocations are seen. No significant degenerative changes are identified.. Ankle mortise is normally aligned. No suspicious bony lesions. Soft tissues: No tibiotalar joint effusion. Achilles tendon appears normal. IMPRESSION: 1. Stable appearance of healing left lateral malleolar fracture. 2. No new acute osseous abnormality seen. Reviewed by: Ernst Bhatti MD on 06/20/2022 2:38 PM PDT Approved by: Ernst Bhatti MD on 06/20/2022 2:38 PM PDT Station ID: [id number]
== END 2022-06-20 13:37 | disposition home or self-care (01) ==
LOC: DI.N 13:36
PROVIDERS: ATTEND Physician Assistant
DX: S82.62XD Displaced fracture of lateral malleolus of left fibula, subsequent encounter for closed fracture with routine healing (principal)

== ENCOUNTER 2022-11-03 16:19 | Outpatient (CLI) | payer MEDICARE, OTHER | END 2022-11-03 16:20 | disposition critical access hospital (66) | LOC: EMS 16:19 | DX: R29.810 Facial weakness (principal); R47.81 Slurred speech | CPT/HCPCS: A0425; A0429 ==

== ENCOUNTER 2022-11-20 13:38 | Outpatient (CLI) | payer MEDICARE, OTHER ==
[2022-11-20] MEDS ORDERED: GADOBUTROL 7.5 MMOL/7.5 ML VIAL ONE (14:24)
[2022-11-20] MEDS ORDERED: GADOBUTROL 7.5 MMOL/7.5 ML VIAL IVP ONE (15:30)
--- NOTE | 2022-11-20 15:36 | MRI Report ---
PROCEDURE: BRAIN W/WO INDICATIONS: FACIAL WEAKNESS CONTRAST: gadavist 6.4ml TECHNIQUE: Noncontrast axial T1 spin echo, axial T2 fast spin echo, sagittal and axial FLAIR, coronal T2 fast sp in echo, axial gradient echo, axial diffusion and ADC through the brain. After the administration of contrast, axial and coronal T1 spin echo with fat saturation through the brain. COMPARISON: CT dated 11/03/2022. FINDINGS: Image quality: Excellent. CSF spaces: Basal cisterns are patent. No extra-axial fluid collections. Ventricles are enlarged. Brain: No midline shift. No acute intracranial bleeds or masses. No abnormal intracranial enhancem ent. There is moderate to severe cerebral volume loss for age. There is moderate periventricular wh ite matter chronic small vessel ischemic change. The brainstem appears normal. Diffusion-weighted i mages demonstrate vague diffusion signal elevation within the right anterolateral frontal lobe, assoc iated with adjacent cortical enhancement, spanning roughly 32 mm anteroposterior. There is associated curvilinear low gradient echo signal intensity within the region. No chronic ischemic insults. Norm al intravascular flow voids are present. Skull and face: Calvarial marrow is normal in signal. Orbits appear normal. Sinuses: Sinuses and mastoids appear clear. IMPRESSION: 1. 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 No evidence of acute intracranial hemorrhage. 2. Luxury reperfusion within the right frontal infarct. 3. Volume loss and small vessel ischemic disease. 4. Ventriculomegaly. Findings may indicate normal pressure hydrocephalus in the appropriate clinical setting. Reviewed by: Js Christianson MD on 11/20/2022 3:35 PM PST Approved by: Js Christianson MD on 11/20/2022 3:35 PM PST Station ID: [id number]
--- NOTE | 2022-11-20 15:58 | MRI Report ---
PROCEDURE: ANGIO HEAD WO INDICATIONS: Facial Weakness TECHNIQUE: Noncontrast axial 3-D [id number] MR angiogram, with 3-dimensional maximum intensity projection (M IP) reformats of the internal carotid arteries and posterior circulation then performed. COMPARISON: None. FINDINGS: Image quality: Excellent. Anterior circulation: Intracranial internal carotid arteries demonstrate normal size and intralumina l flow signal. The flow within the paired anterior cerebral arteries is normal and symmetric. The f low within the middle cerebral arteries is normal and symmetric. The anterior communicating artery i s seen. No stenoses, occlusions, or aneurysms. Posterior circulation: Visualized portions of the vertebral arteries demonstrate normal caliber, and join to form a normal appearing basilar artery. The flow within the posterior cerebral arteries is normal and symmetric. No stenoses, occlusions, or aneurysms. IMPRESSION: Negative cerebral MR angiography examination. Reviewed by: Js Christianson MD on 11/20/2022 3:57 PM PST Approved by: Js Christianson MD on 11/20/2022 3:57 PM PST Station ID: [id number]
== END 2022-11-20 13:39 | disposition home or self-care (01) ==
LOC: DI 13:38
PROVIDERS: ATTEND Physician Assistant
DX: I63.9 Cerebral infarction, unspecified (principal); R29.810 Facial weakness; G93.89 Other specified disorders of brain; I67.82 Cerebral ischemia
CPT/HCPCS: 70544; 70553; A9585

== ENCOUNTER 2022-11-23 07:52 | Outpatient (CLI) | payer MEDICARE, OTHER ==
[2022-11-23 12:11] LABS: BASOPHILS % (AUTO) 0.5 %; EOSINOPHILS # (AUTO) 0.1 10^3/uL (0.0-0.7); EOSINOPHILS % (AUTO) 1.5 %; HCT - HEMATOCRIT 45.3 % (37.0-47.0); HGB - HEMOGLOBIN 14.4 g/dL (12.0-16.0); LYMPHOCYTES # (AUTO) 1.4 10^3/uL (1.5-3.5); LYMPHOCYTES % (AUTO) 17.5 %; MEAN CORPUSCULAR HEMOGLOBIN 31.2 pg (27.0-31.0); MEAN CORPUSCULAR HGB CONC 31.8 g/dL (32.0-36.0); MEAN CORPUSCULAR VOLUME 98.1 fL (81.0-99.0); MEAN PLATELET VOLUME 9.9 fL (7.9-10.8); MONOCYTES # (AUTO) 0.7 10^3/uL (0.0-1.0); MONOCYTES % (AUTO) 8.6 %; NEUTROPHILS # (AUTO) 5.7 10^3/uL (1.5-6.6); NEUTROPHILS % (AUTO) 71.6 %; PLT - PLATELET COUNT 179 10^3/uL (130-450); RED BLOOD COUNT 4.62 10^6/uL (4.20-5.40); RED CELL DISTRIBUTION WIDTH 13.5 % (12.0-15.0)
[2022-11-23 12:28] LABS: ALBUMIN 3.6 g/dL (3.2-5.5); ALBUMIN/GLOBULIN RATIO 1.2 (1.0-2.2); ALKALINE PHOSPHATASE 101 IU/L (42-121); ALT ALANINE AMINOTRANSFERASE 26 IU/L (10-60); AST ASPARTATE AMINOTRANSFERASE 23 IU/L (10-42); BILIRUBIN,TOTAL 1.2 mg/dL (0.2-1.0); BUN - BLOOD UREA NITROGEN 12 mg/dL (6-20); CALCIUM 9.1 mg/dL (8.5-10.3); CARBON DIOXIDE - CO2 27 mmol/L (21-32); CHLORIDE 107 mmol/L (101-111); CHOL/HDL RATIO 2.7 (<4.4); CHOLESTEROL 163 mg/dL; CREATININE 0.7 mg/dL (0.4-1.0); GFR - MDRD 80 (>89); GLUCOSE 117 mg/dL (70-100); HDL CHOLESTEROL 61 mg/dL; LDL CHOLESTEROL,CALCULATED 75 mg/dL; LDL/HDL RATIO 1.2 (<4.4); SODIUM 141 mmol/L (135-145); TOTAL PROTEIN 6.5 g/dL (6.7-8.2); TRIGLYCERIDES 136 mg/dL; VLDL CHOLESTEROL 27 mg/dL
[2022-11-23 12:57] LABS: ESTIMATED AVERAGE GLUCOSE 126 mg/dL (70-100)
== END 2022-11-23 07:53 | disposition home or self-care (01) ==
LOC: LAB.N 07:52
PROVIDERS: ATTEND Physician Assistant
DX: I63.9 Cerebral infarction, unspecified (principal); E78.5 Hyperlipidemia, unspecified; R73.01 Impaired fasting glucose
CPT/HCPCS: 36415; 80053; 80061; 83036; 83721; 85025

== ENCOUNTER 2022-12-20 14:10 | Outpatient (CLI) | payer MEDICARE, OTHER | END 2022-12-20 14:11 | disposition home or self-care (01) | LOC: MAC.MOP 14:10 | PROVIDERS: ATTEND Physician Assistant | DX: I63.9 Cerebral infarction, unspecified (principal) | CPT/HCPCS: 93246 ==

== ENCOUNTER 2023-01-16 12:27 | Outpatient (CLI) | payer MEDICARE, OTHER | END 2023-01-16 12:28 | disposition home or self-care (01) | LOC: DI 12:27 | PROVIDERS: ATTEND Physician Assistant | DX: I63.9 Cerebral infarction, unspecified (principal); I08.1 Rheumatic disorders of both mitral and tricuspid valves; I48.91 Unspecified atrial fibrillation | CPT/HCPCS: 93306 ==

== ENCOUNTER 2023-03-16 12:56 | Outpatient (CLI) | payer MEDICARE, OTHER | END 2023-03-16 12:57 | disposition critical access hospital (66) | LOC: EMS 12:56 | DX: R47.81 Slurred speech (principal); R26.9 Unspecified abnormalities of gait and mobility; R32 Unspecified urinary incontinence | CPT/HCPCS: A0425; A0429 ==

== ENCOUNTER 2023-03-16 13:15 | Inpatient (IN) | payer MEDICARE, OTHER ==
[2023-03-16] MEDS ORDERED: SODIUM CHLORIDE 0.9% 1,000 ML IV STA (13:19)
[2023-03-16] MEDS ORDERED: diltiaZEM INJ 5 MG/ML VIAL IVP STA ×3 (13:19→16:13)
--- NOTE | 2023-03-16 13:22 | ED Physician Documentation ---
History of Present Illness - Stated complaint Stated Complaint: CONFUSION - History obtained from History obtained from: EMS - Additonal information Additional information: 83-year-old woman with history of hypertension, fibromyalgia, hypercholesterolemia, hysterectomy, possible dementia noting she is on donepezil. Had an echo 2 months ago showing mild TR and MR but otherwise basically normal echo. Brought in by ambulance as she has reportedly been slurring her speech which has been worsening for the last 2 days. EMS says she has a history of stroke, the time course of that is unclear. Patient is unable to give any history due to altered mental status. 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 TECHNICIAN: Hysterectomy Neuro:  HEENT: Cataracts - Present Medications Home Medications: Ambulatory Orders Medication Instructions Recorded Confirmed Donepezil HCl [Donepezil HCl Odt] 10 mg PO DAILY 05/07/22 05/07/22 Rosuvastatin Calcium [Crestor] 20 mg PO DAILY 05/07/22 05/07/22 dexAMETHasone [Decadron] 4 mg PO DAILY #5 tablet 11/03/22 - Allergies Allergies/Adverse Reactions: Allergies Allergy/AdvReac Type Severity Reaction Status Date / Time meperidine [From Demerol] Allergy Unknown Verified 11/03/22 16:49 vitamin e oil Allergy Unknown Uncoded 11/03/22 16:49 - Social History Does the pt smoke?: No Smoking Status: Never smoker Does the pt drink ETOH?: No Does the pt have substance abuse?: No - Immunizations Immunizations are current?: Yes - POLST Patient has POLST: No PD ED PE NORMAL - Vitals Vital signs reviewed: Yes - General General: Other (She is alert and oriented to person only. She appears ill. She is able to follow commands.) - HEENT HEENT: PERRL, EOMI, Other (Very dry mucous membranes) - Neck Neck: Supple, no meningeal sign, No bony TTP - Cardiac Cardiac: Other (Rapid and irregular without murmur) - Respiratory Respiratory: No respiratory distress, Clear bilaterally - Abdomen Abdomen: Other (Mild diffuse tenderness without surgical signs) - Derm Derm: Normal color, Warm and dry - Extremities Extremities: No edema, No calf tenderness / cord - Neuro Neuro: Other (She is alert, oriented to person only. Follows simple commands but seems confused. She has a nonlateralizing neurologic exam with good strength and sensation in all 4 extremities.) Eye Opening: Spontaneous Motor: Obeys Commands Verbal: Confused GCS Score: 14 Results - Vitals Vitals: Vital Signs - 24 hr 03/16/23 03/16/23 03/16/23 13:20 13:56 14:18 Temperature 36.3 C L Heart Rate 80 114 H Respiratory 24 22 Rate Blood Pressure 149/112 H 131/104 H O2 Saturation 94 96 03/16/23 15:12 Temperature Heart Rate 110 H Respiratory 18 Rate Blood Pressure 133/97 H O2 Saturation 92 Oxygen O2 Source Room air - EKG (time done) 1318 EKG releavant findings:: EKG personally interpreted by author of this note. Relevant findings are: Rate: Rate (enter#) (176) Rhythm: Atrial fibrillation [place]: Normal QRS: Low voltage Ischemia: ST depression (lateral). No: ST elevation c/w ischemia Computer interpretation: Agree with computer - Labs Labs: Laboratory Tests 03/16/23 03/16/23 03/16/23 13:35 13:35 13:35 WBC 13.3 H RBC 4.40 Hgb 13.6 Hct 43.0 MCV 97.7 MCH 30.9 MCHC 31.6 L RDW 14.4 Plt Count 197 MPV 11.0 H Neut # (Auto) 11.4 H Lymph # (Auto) 1.1 L [place] # (Auto) 0.7 Eos # (Auto) 0.0 Baso # (Auto) 0.0 Absolute Nucleated RBC 0.00 Nucleated RBC % 0.0 VBG pH VBG pCO2 VBG pO2 VBG HCO3 VBG Total CO2 VBG O2 Saturation VBG Base Excess Sodium 143 Potassium 3.8 Chloride 113 H Carbon Dioxide 20 L Anion Gap 10.0 BUN 36 H Creatinine 1.1 H Estimated GFR (MDRD) 47 L Glucose 152 H Lactic Acid Calcium 8.6 Magnesium 2.1 Total Bilirubin 2.2 H AST 153 H ALT 151 H Alkaline Phosphatase 113 Troponin I High Sens 64.5 H* B-Natriuretic Peptide Total Protein 6.1 L Albumin 3.6 Globulin 2.5 Albumin/Globulin Ratio 1.4 TSH Urine Color Urine Clarity Urine pH Ur Specific [place] Urine Protein Urine Glucose (UA) Urine Ketones Urine Occult Blood Urine Nitrite Urine Bilirubin Urine Urobilinogen Ur Leukocyte Esterase Urine RBC Urine WBC Ur Squamous Epith Cells Amorphous Sediment Urine Bacteria Ur Microscopic Review Urine Culture Comments Nasal Adenovirus (PCR) Nasal B. parapertussis DNA (PCR) Nasal Coronavir 229E PCR Nasal Coronavir HKU1 PCR Nasal Coronavir NL63 PCR Nasal Coronavir OC43 PCR Nasal Enterovir/Rhinovir PCR Nasal Influenza B PCR Nasal Influenza A PCR Nasal Parainfluen 1 PCR Nasal Parainfluen 2 PCR Nasal Parainfluen 3 PCR Nasal Parainfluen 4 PCR Nasal RSV (PCR) Nasal B.pertussis DNA PCR Nasal C.pneumoniae (PCR) Corey Human Metapneumo PCR Nasal M.pneumoniae (PCR) Nasal SARS-CoV-2 (PCR) 03/16/23 03/16/23 03/16/23 13:35 13:35 13:35 WBC RBC Hgb Hct MCV MCH MCHC RDW Plt Count MPV Neut # (Auto) Lymph # (Auto) [place] # (Auto) Eos # (Auto) Baso # (Auto) Absolute Nucleated RBC Nucleated RBC % VBG pH VBG pCO2 VBG pO2 VBG HCO3 VBG Total CO2 VBG O2 Saturation VBG Base Excess Sodium Potassium Chloride Carbon Dioxide Anion Gap BUN Creatinine Estimated GFR (MDRD) Glucose Lactic Acid 2.0 Calcium Magnesium Total Bilirubin AST ALT Alkaline Phosphatase Troponin I High Sens B-Natriuretic Peptide 1920 H Total Protein Albumin Globulin Albumin/Globulin Ratio TSH 2.10 Urine Color Urine Clarity Urine pH Ur Specific [place] Urine Protein Urine Glucose (UA) Urine Ketones Urine Occult Blood Urine Nitrite Urine Bilirubin Urine Urobilinogen Ur Leukocyte Esterase Urine RBC Urine WBC Ur Squamous Epith Cells Amorphous Sediment Urine Bacteria Ur Microscopic Review Urine Culture Comments Nasal Adenovirus (PCR) Nasal B. parapertussis DNA (PCR) Nasal Coronavir 229E PCR Nasal Coronavir HKU1 PCR Nasal Coronavir NL63 PCR Nasal Coronavir OC43 PCR Nasal Enterovir/Rhinovir PCR Nasal Influenza B PCR Nasal Influenza A PCR Nasal Parainfluen 1 PCR Nasal Parainfluen 2 PCR Nasal Parainfluen 3 PCR Nasal Parainfluen 4 PCR Nasal RSV (PCR) Nasal B.pertussis DNA PCR Nasal C.pneumoniae (PCR) [place]y Human Metapneumo PCR Nasal M.pneumoniae (PCR) Nasal SARS-CoV-2 (PCR) 03/16/23 03/16/23 03/16/23 13:35 13:45 14:09 WBC RBC Hgb Hct MCV MCH MCHC RDW Plt Count MPV Neut # (Auto) Lymph # (Auto) [place] # (Auto) Eos # (Auto) Baso # (Auto) Absolute Nucleated RBC Nucleated RBC % VBG pH 7.447 H VBG pCO2 28.7 L VBG pO2 65.8 H VBG HCO3 19.4 L VBG Total CO2 20.2 L VBG O2 Saturation 92.5 H VBG Base Excess -3.2 L Sodium Potassium Chloride Carbon Dioxide Anion Gap BUN Creatinine Estimated GFR (MDRD) Glucose Lactic Acid Calcium Magnesium Total Bilirubin AST ALT Alkaline Phosphatase Troponin I High Sens B-Natriuretic Peptide Total Protein Albumin Globulin Albumin/Globulin Ratio TSH Urine Color YELLOW Urine Clarity HAZY Urine pH 5.0 Ur Specific [place] >=1.030 H Urine Protein >=300 H Urine Glucose (UA) NEGATIVE Urine Ketones NEGATIVE Urine Occult Blood SMALL H Urine Nitrite NEGATIVE Urine Bilirubin NEGATIVE Urine Urobilinogen 1 (NORMAL) Ur Leukocyte Esterase NEGATIVE Urine RBC 6-10 H Urine WBC 0-3 Ur Squamous Epith Cells FEW Squamous Amorphous Sediment Few Urine Bacteria Few Ur Microscopic Review INDICATED Urine Culture Comments NOT INDICATED Nasal Adenovirus (PCR) NOT DETECTED Nasal B. parapertussis DNA (PCR) NOT DETECTED Nasal Coronavir 229E PCR NOT DETECTED Nasal Coronavir HKU1 PCR NOT DETECTED Nasal Coronavir NL63 PCR NOT DETECTED Nasal Coronavir OC43 PCR NOT DETECTED Nasal Enterovir/Rhinovir PCR NOT DETECTED Nasal Influenza B PCR NOT DETECTED Nasal Influenza A PCR NOT DETECTED Nasal Parainfluen 1 PCR NOT DETECTED Nasal Parainfluen 2 PCR NOT DETECTED Nasal Parainfluen 3 PCR NOT DETECTED Nasal Parainfluen 4 PCR NOT DETECTED Nasal RSV (PCR) NOT DETECTED Nasal B.pertussis DNA PCR NOT DETECTED Nasal C.pneumoniae (PCR) NOT DETECTED Corey Human Metapneumo PCR NOT DETECTED Nasal M.pneumoniae (PCR) NOT DETECTED Nasal SARS-CoV-2 (PCR) NOT DETECTED - Rads (name of study) Single view chest x-ray demonstrates cardiomegaly with vascular congestion and bilateral pleural effusions with atelectasis or infiltrate Relevant Findings:: Final report received, EMP independent interpretation of test CT of the abdomen pelvis demonstrates focal enhancement of the left hepatic lobe of unclear etiology Relevant Findings:: Final report received, EMP independent interpretation of test CT of the head without contrast demonstrates atrophy and white matter ischemic changes without acute findings. Relevant Findings:: Final report received, EMP independent interpretation of test CT chest with contrast demonstrates large bilateral pleural effusions with mild mediastinal adenopathy, possibly reactive Relevant Findings:: Final report received, EMP independent interpretation of test PD Medical Decision Making - ED course ED course: 83-year-old woman with mild dementia presents much worse over the last couple of days with encephalopathy and is in A-fib with severe RVR on arrival with heart rates in the 170s and 180s. She was given some IV fluids and divided doses of diltiazem with pretty much rate control. Work-up here demonstrates a CBC showing modest leukocytosis, relatively unremarkable otherwise. Blood gas showing respiratory alkalosis with metabolic compensation. CMP showing elevation in liver enzymes, prerenal azotemia and hyperchloremia. Troponin is elevated to 64, this is likely due to the A-fib with RVR and she is has evidence of CHF with a BNP of 1920 and bilateral pleural effusions on imaging. Given the above I discussed the case with Dr. Branch at 3:30 PM for admission. - Critical Care Time(min): 40 Time Includes: Direct patient care, Review records, Reassess patient, Document care, Coordinate care, Medical consult, Family consult for tx dec ( and [id number] at the bedside) Data interpretation: Labs, Pulse ox, ABG Procedures included in critical care time: Peripheral IV Procedures excluded from critical care time: EKG Departure - Departure Disposition: 66 [facility] DC/Xfer Clinical Impression: Atrial fibrillation with RVR, Encephalopathy, (HFpEF) heart failure with preserved ejection fraction, Bilateral pleural effusion, Liver lesion, Prerenal azotemia, Full code status Condition: Serious
[2023-03-16 13:51] LABS: BASOPHILS % (AUTO) 0.2 %; HGB - HEMOGLOBIN 13.6 g/dL (12.0-16.0); LYMPHOCYTES # (AUTO) 1.1 10^3/uL (1.5-3.5); MEAN CORPUSCULAR HEMOGLOBIN 30.9 pg (27.0-31.0); MEAN CORPUSCULAR HGB CONC 31.6 g/dL (32.0-36.0); MEAN CORPUSCULAR VOLUME 97.7 fL (81.0-99.0); MONOCYTES # (AUTO) 0.7 10^3/uL (0.0-1.0); MONOCYTES % (AUTO) 5.4 %; NEUTROPHILS # (AUTO) 11.4 10^3/uL (1.5-6.6); PLT - PLATELET COUNT 197 10^3/uL (130-450); RED CELL DISTRIBUTION WIDTH 14.4 % (12.0-15.0); WHITE BLOOD COUNT 13.3 x10^3/uL (4.8-10.8)
[2023-03-16 13:59] LABS: VBG BASE EXCESS -3.2 mmol/L (-2 - +2); VBG HCO3 19.4 mmol/L (23-28); VBG OXYGEN SATURATION 92.5 % (60-80); VBG PCO2 28.7 mmHg (41-51); VBG PH 7.447 (7.31-7.41); VBG PO2 65.8 mmHg (25-47); VBG TOTAL CO2 20.2 mmol/L (24-29)
[2023-03-16 14:11] LABS: ALBUMIN 3.6 g/dL (3.2-5.5); ALBUMIN/GLOBULIN RATIO 1.4 (1.0-2.2); BILIRUBIN,TOTAL 2.2 mg/dL (0.2-1.0); CALCIUM 8.6 mg/dL (8.5-10.3); CREATININE 1.1 mg/dL (0.4-1.0); MAGNESIUM 2.1 mg/dL (1.7-2.8); POTASSIUM 3.8 mmol/L (3.5-5.0); TOTAL PROTEIN 6.1 g/dL (6.7-8.2)
[2023-03-16] MEDS ORDERED: iohexoL-300 100 ML VIAL ONE (14:34)
[2023-03-16] MEDS ORDERED: iohexoL-300 100 ML VIAL IVP ONE (14:59)
[2023-03-16 15:01] LABS: BILIRUBIN,URINE NEGATIVE (NEGATIVE); GLUCOSE, URINE (UA) NEGATIVE (NEGATIVE); KETONES,URINE (UA) NEGATIVE (NEGATIVE); LEUKOCYTE ESTERASE, URINE NEGATIVE (NEGATIVE); NITRITE,URINE NEGATIVE (NEGATIVE); OCCULT BLOOD,URINE SMALL (NEGATIVE); PROTEIN,URINE >=300 mg/dL (NEGATIVE); UROBILINOGEN,URINE 1 (NORMAL) E.U./dL (NORMAL)
[2023-03-16 15:06] LABS: CLARITY,URINE HAZY (CLEAR)
[2023-03-16 15:09] LABS: B. PARAPERTUSSIS- RESP PCR PAN NOT DETECTED; B. PERTUSSIS- RESP PCR PANEL NOT DETECTED; C. PNEUMONIAE- RESP PCR PANEL NOT DETECTED; CORONAVIRUS 229E-RESP PCR NOT DETECTED; CORONAVIRUS HKU1-RESP PCR NOT DETECTED; CORONAVIRUS NL63-RESP PCR NOT DETECTED; CORONAVIRUS OC43-RESP PCR NOT DETECTED; HUMAN METAPNEUMOVIRUS NOT DETECTED; INFLUENZA A- RESP PCR PANEL NOT DETECTED; INFLUENZA B - RESP PCR PANEL NOT DETECTED; M. PNEUMONIAE- RESP PCR PANEL NOT DETECTED; PARAINFLUENZA VIRUS 1 NOT DETECTED; PARAINFLUENZA VIRUS 2 NOT DETECTED; PARAINFLUENZA VIRUS 3 NOT DETECTED; PARAINFLUENZA VIRUS 4 NOT DETECTED; RHINOVIRUS/ENTEROVIRUS NOT DETECTED; RSV- RESP PCR PANEL NOT DETECTED; SARS-CoV-2 -RESP PCR PANEL NOT DETECTED
--- NOTE | 2023-03-16 15:13 | XRAY Report ---
PROCEDURE: Chest 1 View X-Ray INDICATIONS: poss sepsis TECHNIQUE: One view of the chest was acquired. COMPARISON: None. FINDINGS: Cardiomegaly. Moderate vascular congestion laceration of both hemidiaphragms. Osseous structures are demineralized. IMPRESSION: Cardiomegaly, moderate vascular congestion and bibasilar pleural effusions with atelectasis and or in filtrate Reviewed by: Fabio Bustamante MD on 03/16/2023 2:12 PM AKDT Approved by: Fabio Bustamante MD on 03/16/2023 2:12 PM AKDT Station ID: [id number]
--- NOTE | 2023-03-16 15:17 | CT Report ---
PROCEDURE: CT abdomen pelvis with contrast INDICATIONS: IV only, undifferentiated illness with mild abd tt CONTRAST: 100ml omni 300 TECHNIQUE: After the administration of contrast, 5 mm thick sections acquired from the diaphragms to the symphys is. 5 mm thick coronal and sagittal reformats were acquired. For radiation dose reduction, the foll owing was used: automated exposure control, adjustment of mA and/or kV according to patient size. COMPARISON: None FINDINGS: Lower thorax: Large bibasilar pleural effusions present. Liver: Focal enhancement of the left hepatic lobe adjacent to the falciform ligament without mass eff ect. Diffusely decreased attenuation hepatic parenchyma present. Biliary system: No calcified cholelithiasis or pericholecystic inflammation. No evidence of bile du ct dilatation. Pancreas: Unremarkable without mass or inflammation evident. Spleen: Normal in size and density. Adrenals: Normal morphology and density. Reproductive system: Unremarkable as visualized. Urinary system: Normal renal size and attenuation. No renal calculi, hydronephrosis, or solid mass p resent. Urinary bladder unremarkable. Gastrointestinal system: The bowel appears unremarkable with no evidence of bowel obstruction or inf lammation. The stomach appears unremarkable. Appendix: No findings to suggest acute appendicitis. Peritoneal spaces: No mesenteric or retroperitoneal adenopathy. No free air. No free fluid. Vasculature: The IVC, aorta and iliac vasculature are unremarkable. Musculoskeletal: Normal bone mineralization. No acute fractures. Abdominal wall intact without vidya dence of ventral or inguinal hernias. Degenerative disc disease and arthropathy in the lower lumbar s pine IMPRESSION: No acute CT findings in the abdomen and pelvis Incidental ill-defined focal enhancement in the left hepatic lobe without mass effect. This could be artifactual related to phase of enhancement, however, consider 3 month follow-up to ensure stability or resolution. Reviewed by: Fabio Bustamante MD on 03/16/2023 2:15 PM HEIDI Approved by: Fabio Bustamante MD on 03/16/2023 2:15 PM AKEDA Station ID: [id number]
[2023-03-16 15:19] LABS: AMORPHOUS SEDIMENT,UR Few /LPF; BACTERIA,URINE Few /HPF (None Seen); SQUAMOUS EPITHELIAL CELL,UR FEW Squamous (<= Few); WBC,URINE 0-3 /HPF (0-5)
--- NOTE | 2023-03-16 15:22 | CT Report ---
PROCEDURE: CT brain without contrast INDICATIONS: ams TECHNIQUE: Noncontrast 4.5 mm thick angled axial sections acquired from the foramen magnum to the vertex. For r adiation dose reduction, the following was used: automated exposure control, adjustment of mA and/or kV according to patient size. COMPARISON: None. FINDINGS: Image quality: Excellent. CSF spaces: Basal cisterns are patent. No extra-axial fluid collections. Ventricles are normal in size and shape. Brain: No midline shift. No intracranial masses or hemorrhage. Yanez-white matter interface is norm al. Moderate atrophy and multifocal white matter chronic ischemic change. Old right frontal cortical infarct Skull and face: Calvarium and visualized facial bones are intact, without suspicious lesions. Bilat eral intraocular lens replacements are present. Scleral banding noted on the left. Sinuses: Visualized sinuses and mastoids are clear. IMPRESSION: Moderate atrophy and white matter chronic ischemic change without intracranial hemorrhage or mass eff ect. Old right frontal infarct Reviewed by: Fabio Bustamante MD on 03/16/2023 2:21 PM AKDT Approved by: Fabio Bustamante MD on 03/16/2023 2:21 PM AKDT Station ID: [id number]
--- NOTE | 2023-03-16 15:24 | CT Report ---
PROCEDURE: CT chest with contrast INDICATIONS: Pleural effusions CONTRAST: 100ml omni 300 TECHNIQUE: After the administration of intravenous contrast, 1 mm axial images were acquired from the pulmonary apices through the posterior costophrenic angles. Axial 5 mm soft tissue kernel reconstructions were performed as well as 8 mm axial MIP and coronal and sagittal 5 mm reformations. For radiation dose reduction, the following was used: automated exposure control, adjustment of mA and/or kV according to patient size. COMPARISON: None. FINDINGS: Image quality: Excellent. Lungs and pleura: No consolidation. Large bilateral pleural effusions with associated atelectasis. No suspicious pulmonary nodules which require follow up. Mediastinum: Heart size is within normal limits No pericardial effusion. No large vessel abnormality. Mediastinal adenopathy measures up to 1.1 cm Chest wall and lower neck: Thyroid is unremarkable. No axillary or supraclavicular adenopathy by size . Bones: No aggressive osseous abnormality. Upper Abdomen: Unremarkable. IMPRESSION: Large bilateral pleural effusions and mild mediastinal adenopathy, possibly reactive Reviewed by: Fabio Bustamante MD on 03/16/2023 2:23 PM AKDT Approved by: Fabio Bustamante MD on 03/16/2023 2:23 PM AKDT Station ID: [id number]
[2023-03-16] MEDS ORDERED: ONDANSETRON 4 MG/2 ML VIAL IVP PRN (16:04)
[2023-03-16] MEDS ORDERED: HYDROmorphone 0.5 MG/0.5 ML SYRINGE IVP PRN (16:04)
[2023-03-16] MEDS: diltiaZEM INJ 125 MG in DEXTROSE 5% 100 ML IV SCH (16:28)
--- NOTE | 2023-03-16 16:28 | HISTORY & PHYSICAL EXAMINATION ---
Chief Complaint - Chief Complaint Chief Complaint: Altered mental status, fast heart rate History of Present Illness - Admitted From Admitted From:: Emergency room - History Obtained From Records Reviewed: Yes History obtained from: ER yaakov JEREZ and family members at bedside - History of Present Illness HPI Comment/Other: This is an 83-year-old woman with a history of hypertension, fibromyalgia, hyperlipidemia dementia who is on Aricept who also has a history of atrial fibrillation for which she is on metoprolol and Eliquis anticoagulation. Reportedly 2 months ago she had an echo which showed mild TR and MR but otherwise was normal. 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 She has been living at [facility] and recently moved in with her. Over the past few days she has worsening dysarthria which she had some at her baseline as reportedly she had a CVA in September Family relates that she has been been having some increasing more confusion and dysarthria. Over the past 2 days or so this has been happening. She today upon presentation here was found to have RVR atrial fibrillation. She was given 2 doses of diltiazem and upon my visit is continuing to be in RVR anywhere from 115 up to 150 or so. 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 OFFICER: reports: Hysterectomy Neuro: HEENT: reports: Cataracts - POLST Patient has POLST: No Meds/Allgy - Home Medications Home Medications: Ambulatory Orders Medication Instructions Recorded Confirmed Donepezil HCl [Donepezil HCl Odt] 10 mg PO DAILY 05/07/22 05/07/22 Rosuvastatin Calcium [Crestor] 20 mg PO DAILY 05/07/22 03/16/23 Apixaban [Eliquis] 2.5 mg PO BID 03/16/23 03/16/23 DULoxetine [Cymbalta] 60 mg PO DAILY 03/16/23 03/16/23 Metoprolol Succinate [Toprol Xl] 25 mg PO DAILY 03/16/23 03/16/23 - Allergies Allergies/Adverse Reactions: Allergies Allergy/AdvReac Type Severity Reaction Status Date / Time meperidine [From Demerol] Allergy Unknown Verified 11/03/22 16:49 vitamin e oil Allergy Unknown Uncoded 11/03/22 16:49 Review of Systems - Constitutional Constitutional: reports: Weakness (All systems are reviewed and are negative except for as in HPI.) Exam - Vital Signs Reviewed Vital Signs: Yes Vital Signs: Vital Signs x48h Temp Pulse Resp BP Pulse Ox 03/16/23 16:00 119 H 24 124/107 H 94 03/16/23 15:12 110 H 18 133/97 H 92 03/16/23 14:18 131/104 H 03/16/23 13:56 114 H 22 96 03/16/23 13:20 36.3 C L 80 24 149/112 H 94 - Physical Exam General Appearance: positive: No acute distress, Alert Eyes Bilateral: positive: Normal inspection Neck: positive: Nml inspection Respiratory: positive: Other (Decreased breath sounds approximately a third of the way up her posterior rojas.) Abdomen: positive: Non-tender Back: positive: Nml inspection Skin: positive: No rash Extremities: positive: No pedal edema Neurologic/Psychiatric: positive: Other (Patient does have some dysarthria with slow speech. She is able to follow some commands. Her motor strength appears intact bilaterally. [id number] is intact bilaterally. She has a blunted affect.) Conclusion/Plan - Problem List (1) Atrial fibrillation with RVR Conclusion/Plan: Patient was found to be in RVR atrial fibrillation she was given 2 doses of IV diltiazem and is still having RVR so we will order a bolus of diltiazem and started on titratable IV diltiazem drip. -Continue with patient's oral metoprolol when passes swallow eval -Check echocardiogram -Placed on telemetry -Check serial troponins (2) Bilateral pleural effusion Conclusion/Plan: Suspect secondary to RVR atrial fibrillation resulting in congestive heart failure -Lasix 40 mg IV twice daily -Monitor I's and O's -Check echocardiogram -Check serial troponins (3) Encephalopathy Conclusion/Plan: From previous stroke she appears to have some dysarthria and some baseline altered mental status but family notes that over the past 2 days this has worsened. -Check CTA head and neck -Check echocardiogram -Check swallow eval prior to eating -Given her RVR atrial fibrillation we will continue Eliquis as concern for clot formation within the atria (4) Liver lesion Conclusion/Plan: Incidental finding on CT of abdomen pelvis -Per radiology recommendations recheck in several months (5) Prerenal azotemia Conclusion/Plan: Monitor and avoid nephrotoxic agents (6) Anticoagulation adequate Conclusion/Plan: Due to RVR atrial fibrillation will continue with Eliquis anticoagulation - Lab Results Fish Bones: 03/16/23 13:35 03/16/23 13:35 - Diagnostic Imaging Results Diagnostic Imaging Results: positive: Final report reviewed - EKG Results EKG Interpreted Independently: Yes
[2023-03-16] MEDS: SODIUM CHLORIDE FLUSH 0.9% 10 ML SYRINGE IVP SCH ×2 (16:52→20:21)
[2023-03-16] MEDS ORDERED: ALBUTEROL NEB 2.5 MG/3 ML INH PRN (18:46)
--- NOTE | 2023-03-16 19:12 | MRI Report ---
PROCEDURE: MRI brain without contrast INDICATIONS: acute encephalopathy TECHNIQUE: Noncontrast axial T1 spin echo, axial T2 fast spin echo, sagittal and axial FLAIR, coronal T2 fast sp in echo, axial gradient echo, axial diffusion and ADC through the brain. COMPARISON: None. FINDINGS: Image quality: Excellent. CSF Spaces: Basal cisterns are patent. No extra-axial fluid collections. Ventricles are normal in size and shape. Brain: No intracranial masses or hemorrhage. Yanez/white matter interface is normal. Brainstem appe ars normal. Diffusion-weighted images demonstrate no infarct. Normal intravascular flow voids are p resent. Moderate to severe atrophy and white matter chronic ischemic change noted to. This old right frontal infarct associated with cortical old blood products, stable from the prior Skull and face: Calvarium has normal marrow signal. Bilateral intraocular lens replacements and left scleral banding Sinuses: Sinuses and mastoids are clear. IMPRESSION: 1. No acute findings. Moderate to severe atrophy, chronic ischemic change and old right frontal infar ct, all stable from the prior. Reviewed by: Fabio Bustamante MD on 03/16/2023 6:11 PM HEIDI Approved by: Fabio Bustamante MD on 03/16/2023 6:11 PM HEIDI Station ID: [id number]
[2023-03-16] MEDS: FAMOTIDINE 20 MG/2 ML VIAL IVP SCH (20:21)
[2023-03-16] MEDS: SODIUM CHLORIDE FLUSH 0.9% 10 ML SYRINGE IVP PRN (20:21)
[2023-03-16] MEDS: APIXABAN 2.5 MG TABLET PO SCH (20:21)
[2023-03-16] MEDS: ATORVASTATIN 40 MG TABLET PO SCH (20:21)
[2023-03-16] MEDS ORDERED: FUROSEMIDE 40 MG/4 ML VIAL IVP SCH (21:00)
[2023-03-17] MEDS: diltiaZEM INJ 125 MG in DEXTROSE 5% 100 ML IV SCH ×2 (02:56→11:47)
[2023-03-17 05:23] LABS: BASOPHILS % (AUTO) 0.1 %; HCT - HEMATOCRIT 41.4 % (37.0-47.0); HGB - HEMOGLOBIN 13.2 g/dL (12.0-16.0); LYMPHOCYTES # (AUTO) 1.3 10^3/uL (1.5-3.5); LYMPHOCYTES % (AUTO) 9.2 %; MEAN CORPUSCULAR HEMOGLOBIN 30.9 pg (27.0-31.0); MEAN CORPUSCULAR HGB CONC 31.9 g/dL (32.0-36.0); MEAN PLATELET VOLUME 10.9 fL (7.9-10.8); MONOCYTES # (AUTO) 1.3 10^3/uL (0.0-1.0); MONOCYTES % (AUTO) 9.1 %; NEUTROPHILS # (AUTO) 11.7 10^3/uL (1.5-6.6); NEUTROPHILS % (AUTO) 81.3 %; PLT - PLATELET COUNT 176 10^3/uL (130-450); RED BLOOD COUNT 4.27 10^6/uL (4.20-5.40); RED CELL DISTRIBUTION WIDTH 14.3 % (12.0-15.0); WHITE BLOOD COUNT 14.3 x10^3/uL (4.8-10.8)
[2023-03-17 05:36] LABS: CALCIUM 8.7 mg/dL (8.5-10.3); CREATININE 0.9 mg/dL (0.4-1.0)
[2023-03-17] MEDS ORDERED: METOPROLOL 5 MG/5 ML VIAL IVP PRN (07:23)
[2023-03-17] MEDS ORDERED: METOPROLOL SUCCINATE 50 MG TABLET PO SCH (08:00)
[2023-03-17] MEDS: DULoxetine 30 MG CAPSULE PO SCH (08:18)
[2023-03-17] MEDS: APIXABAN 2.5 MG TABLET PO SCH ×2 (08:18→20:12)
[2023-03-17] MEDS: DONEPEZIL 5 MG TABLET PO SCH (08:18)
[2023-03-17] MEDS: SODIUM CHLORIDE FLUSH 0.9% 10 ML SYRINGE IVP SCH ×3 (08:19→20:12)
[2023-03-17] MEDS: FAMOTIDINE 20 MG/2 ML VIAL IVP SCH (08:19)
[2023-03-17] MEDS: POTASSIUM CHLORIDE 20 MEQ TABLET PO SCH ×2 (08:21→11:08)
--- NOTE | 2023-03-17 08:24 | PHARMACY PROGRESS NOTE ---
- Best Possible Medication History Admit Date and Time: 03/16/23 1604 Processed by: Pharmacy Medication History completed: Yes Patient Interview: Pt unable to participate Secondary Source(s): Physician records, Pharmacy records, Insurance records As the person ultimately responsible for medication therapy, providers are able to order a medication from an existing home medication list in [facility] via the "Reconcile Routine" prior to Confirmation of that medication by instructional support services director. Such practice is discouraged except when the physician, in their clinical judgment, deems that a medical need exists for a medication without regard to previous use.
[2023-03-17] MEDS ORDERED: METOPROLOL SUCCINATE 25 MG TABLET PO SCH (09:00)
[2023-03-17] MEDS: FUROSEMIDE 40 MG/4 ML VIAL IVP SCH ×2 (09:53→20:11)
[2023-03-17] MEDS: SODIUM CHLORIDE FLUSH 0.9% 10 ML SYRINGE IVP PRN ×2 (13:34→21:18)
--- NOTE | 2023-03-17 14:40 | PROVIDER PROGRESS NOTE ---
Assessment/Plan - Problem List (1) Atrial fibrillation with RVR Assessment/Plan: Patient was started on IV diltiazem drip in ER have increased her metoprolol dosing today and will try to titrate down the diltiazem drip to off. Have ordered IV 5 mg metoprolol as needed -Continue with telemetry -check serial troponins -check echocardiogram (2) Bilateral pleural effusion Assessment/Plan: Conclusion/Plan: Suspect secondary to RVR atrial fibrillation resulting in congestive heart failure -Lasix 40 mg IV twice daily -Monitor I's and O's -Check echocardiogram -Check serial troponins (3) Encephalopathy Conclusion/Plan: From previous stroke she appears to have some dysarthria and some baseline altered mental status but family notes that over the past 2 days this has worsened. -Check CTA head and neck was no acute -Check echocardiogram -Check swallow eval prior to eating.Passed and is eating. -Given her RVR atrial fibrillation we will continue Eliquis as concern for clot formation within the atria -MRI of brain without contrast revealed no acute findings (4) Liver lesion Conclusion/Plan: Incidental finding on CT of abdomen pelvis -Per radiology recommendations recheck in several months (5) Prerenal azotemia Conclusion/Plan: Monitor and avoid nephrotoxic agents (6) Anticoagulation adequate Conclusion/Plan: Due to RVR atrial fibrillation will continue with Eliquis anticoagulation - Current Meds Current Meds: Current Medications Generic Name Dose Route Start Last Admin Trade Name Freq PRN Reason Stop Dose Admin Albuterol 2.5 mg 03/16/23 18:46 03/16/23 20:40 Albuterol Neb 2.5 Mg/3 Ml INH 2.5 mg RTQ4H PRN Administration Wheezing Apixaban 2.5 mg 03/16/23 21:00 03/17/23 08:18 Apixaban 2.5 Mg Tablet PO 2.5 mg BID ALICIA Administration Atorvastatin Calcium 40 mg 03/16/23 21:00 03/16/23 20:21 Atorvastatin 40 Mg Tablet PO 40 mg QPM ALICIA Administration Donepezil HCl 10 mg 03/17/23 09:00 03/17/23 08:18 Donepezil 5 Mg Tablet PO 10 mg DAILY ALIICA Administration Duloxetine HCl 60 mg 03/17/23 09:00 03/17/23 08:18 Duloxetine 30 Mg Capsule PO 60 mg DAILY ALICIA Administration Furosemide 60 mg 03/17/23 09:00 03/17/23 09:53 Furosemide 40 Mg/4 Ml Vial IVP 60 mg BID ALICIA Administration Diltiazem HCl 125 mg/ Dextrose 125 mls @ 5 mls/hr 03/16/23 17:00 03/17/23 13:01 IV 15 mg/hr .Q25H ALICIA 15 mls/hr Titration Protocol 5 MG/HR Metoprolol Succinate 50 mg 03/17/23 08:00 03/17/23 08:18 Metoprolol Succinate 50 Mg Tablet PO 50 mg DAILY ALICIA Administration Metoprolol Tartrate 5 mg 03/17/23 07:23 03/17/23 13:34 Metoprolol 5 Mg/5 Ml Vial IVP 5 mg Q6H PRN Administration Tachycardia Sodium Chloride 10 ml 03/16/23 17:00 03/17/23 08:19 Sodium Chloride Flush 0.9% 10 Ml Syringe IVP 10 ml 0100,0900,1700 ALICIA Administration Sodium Chloride 10 ml 03/16/23 16:04 03/17/23 13:34 Sodium Chloride Flush 0.9% 10 Ml Syringe IVP 10 ml PRN PRN Administration NEEDED PER PROVIDER ORDERS - Lab Result Fish Bone Diagrams: 03/17/23 04:19 03/17/23 12:50 - Additional Planning My Orders: My Active Orders 03/16/23 16:04 Activity Orders (ICU) [RC] Q2HR Blood Glucose POC [RC] 0000,0600,1200,1800 Daily Weight [RC] 0600 IO [RC] Q1HR Initiate Bowel Care Protocol [RC] QSHIFT Initiate ICU Electrolyte Prot. [RC] .protocol Initiate Line Care Protocol [RC] .protocol Initiate Personal Care Protoco [RC] .protocol Initiate Progressive Mobility Protocol [RC] Q2HR HYDROmorphone 0.5MG SYRINGE [Dilaudid 0.5MG Syringe] 0.5 mg IVP Q2H PRN Ondansetron Inj [Zofran Inj] 4 mg IVP Q6HR PRN Sodium Chloride Flush 0.9% [Normal Saline Flush 0.9%] 10 ml IVP PRN PRN Code Status [OTHERS] Routine Condition of Patient [OTHERS] Routine DVT Prophylaxis [OTHERS] Routine 03/16/23 16:06 NPO [DIET] 03/16/23 16:07 Telemetry- [RC] Q4HR 03/16/23 16:10 CHF Class Post-Discharge [RC] .ONCE Straight Catheter Insertion [RC] PRN 03/16/23 16:21 Echo Complete w/Bubble Study [ECHO] Routine Clinical Swallow Eval w/Modified ST [ST] Routine 03/16/23 17:00 Dextrose 5% [D5w] 100 ml diltiaZEM INJ [Cardizem Inj] 125 mg IV 5 mg/hr Sodium Chloride Flush 0.9% [Normal Saline Flush 0.9%] 10 ml IVP 0100,0900,1700 03/16/23 18:46 Albuterol 2.5 mg INH RTQ4H PRN 03/16/23 18:47 Nebulizer/MDI Tx. [RC] QID Resp Teach Nebulizer/MDI [RC] .ONCE 03/16/23 21:00 Apixaban [Eliquis] 2.5 mg PO BID Atorvastatin [Lipitor] 40 mg PO QPM 03/17/23 07:23 Metoprolol Inj [Lopressor Inj] 5 mg IVP Q6H PRN 03/17/23 07:26 Marin Insertion [RC] QSHIFT 03/17/23 08:00 Metoprolol Succinate [Toprol Xl] 50 mg PO DAILY 03/17/23 09:00 DULoxetine [Cymbalta] 60 mg PO DAILY Donepezil [Aricept] 10 mg PO DAILY FUROSEMIDE INJ 40mg VIAL [LASIX INJ 40 mg VIAL] 60 mg IVP BID 03/17/23 15:00 POTASSIUM [CHEM] Timed 03/17/23 21:00 Famotidine [Pepcid] 20 mg PO BID 03/18/23 05:00 BMP - BASIC METABOLIC PANEL [CHEM] DAILYLAB CBC - COMP BLD CT W/AUTO DIFF [HEME] DAILYLAB MAGNESIUM [CHEM] DAILYLAB PHOSPHORUS [CHEM] DAILYLAB TROPONIN I HIGH SENSITIVITY [IAI] DAILYLAB 03/18/23 09:00 polyethylene glycoL 3350 [Miralax] 17 gm PO DAILY 03/19/23 05:00 BMP - BASIC METABOLIC PANEL [CHEM] DAILYLAB CBC - COMP BLD CT W/AUTO DIFF [HEME] DAILYLAB TROPONIN I HIGH SENSITIVITY [IAI] DAILYLAB 03/20/23 05:00 BMP - BASIC METABOLIC PANEL [CHEM] DAILYLAB CBC - COMP BLD CT W/AUTO DIFF [HEME] DAILYLAB TROPONIN I HIGH SENSITIVITY [IAI] DAILYLAB Subjective - Subjective Patient Reports: Feeling Better (Patient is more alert today and communicative.She denies any chest pain.) Objective Vital Signs: Vital Signs - 24 hr 03/16/23 03/16/23 03/16/23 15:12 16:00 16:27 Temperature Heart Rate 110 H 119 H 106 H Heart Rate [ Monitoring electrodes] Respiratory 18 24 27 H Rate Blood Pressure 133/97 H 124/107 H 142/112 H Blood Pressure [Right Brachial artery] O2 Saturation 92 94 93 03/16/23 03/16/23 03/16/23 16:32 16:43 16:49 Temperature Heart Rate 112 H 108 H 118 H Heart Rate [ Monitoring electrodes] Respiratory 16 24 21 Rate Blood Pressure 130/94 H 132/103 H 138/103 H Blood Pressure [Right Brachial artery] O2 Saturation 93 94 94 03/16/23 03/16/23 03/16/23 18:00 19:00 20:00 Temperature 36.8 C 36.5 C Heart Rate Heart Rate [ 128 H 122 H 115 H Monitoring electrodes] Respiratory 25 H 35 H 18 Rate Blood Pressure Blood Pressure 132/101 H 133/98 H 129/91 H [Right Brachial artery] O2 Saturation 92 96 95 03/16/23 03/16/23 03/16/23 20:40 21:00 22:00 Temperature Heart Rate 112 H Heart Rate [ 110 H 108 H Monitoring electrodes] Respiratory 20 17 17 Rate Blood Pressure Blood Pressure 135/90 H 125/89 H [Right Brachial artery] O2 Saturation 94 94 03/16/23 03/16/23 03/17/23 23:00 23:30 00:00 Temperature 36.5 C Heart Rate Heart Rate [ 123 H 104 H Monitoring electrodes] Respiratory 21 17 Rate Blood Pressure Blood Pressure 118/87 H 113/84 H [Right Brachial artery] O2 Saturation 93 99 03/17/23 03/17/23 03/17/23 01:00 02:00 03:00 Temperature Heart Rate Heart Rate [ 113 H 106 H 108 H Monitoring electrodes] Respiratory 17 19 19 Rate Blood Pressure Blood Pressure 113/83 H 130/78 116/78 [Right Brachial artery] O2 Saturation 96 95 94 03/17/23 03/17/23 03/17/23 04:00 04:35 05:00 Temperature 36.4 C L Heart Rate Heart Rate [ 119 H 103 H Monitoring electrodes] Respiratory 22 17 Rate Blood Pressure Blood Pressure 109/76 106/81 H [Right Brachial artery] O2 Saturation 94 95 03/17/23 03/17/23 03/17/23 06:00 07:00 08:00 Temperature 36.9 C Heart Rate Heart Rate [ 116 H 111 H 107 H Monitoring electrodes] Respiratory 16 27 H 21 Rate Blood Pressure Blood Pressure 118/79 119/83 H 118/79 [Right Brachial artery] O2 Saturation 96 96 95 03/17/23 03/17/23 03/17/23 09:00 10:00 11:00 Temperature Heart Rate Heart Rate [ 107 H 109 H 108 H Monitoring electrodes] Respiratory 20 20 20 Rate Blood Pressure Blood Pressure 112/89 H 111/88 H 114/82 H [Right Brachial artery] O2 Saturation 95 03/17/23 03/17/23 03/17/23 12:00 13:00 13:34 Temperature Heart Rate Heart Rate [ 112 H 101 H 135 H Monitoring electrodes] Respiratory 21 18 Rate Blood Pressure 107/65 Blood Pressure 114/82 H 100/76 107/65 [Right Brachial artery] O2 Saturation 96 96 03/17/23 03/17/23 03/17/23 13:41 13:50 14:00 Temperature Heart Rate Heart Rate [ 125 H 112 H 106 H Monitoring electrodes] Respiratory 12 Rate Blood Pressure Blood Pressure 110/70 97/71 110/74 [Right Brachial artery] O2 Saturation 96 03/17/23 14:04 Temperature Heart Rate Heart Rate [ Monitoring electrodes] Respiratory Rate Blood Pressure 110/74 Blood Pressure [Right Brachial artery] O2 Saturation Oxygen O2 Source Room air I&O (Last 24 Hrs): Intake and Output Totals x24h 03/15/23 03/16/23 03/17/23 23:59 23:59 23:59 Intake Total 1118.583 209.333 Output Total 100 1950 Balance 1018.583 -1740.667 General: Alert, Other (Oriented to person and place) HEENT: Atraumatic Neck: Supple Neuro: Alert, Non Focal Cardiovascular: Other (Irregular regular rate and rhythm with heart rate going anywhere from 100-115) Respiratory: Other (Decreased breath sounds at her bases) Abdomen: Normal bowel sounds, Soft Extremities: Other (Trace bilateral pedal edema) Skin: No rashes - Results Results: Laboratory Results WBC 14.3 x10^3/uL (4.8-10.8) H 03/17/23 04:19 RBC 4.27 10^6/uL (4.20-5.40) 03/17/23 04:19 Hgb 13.2 g/dL (12.0-16.0) 03/17/23 04:19 Hct 41.4 % (37.0-47.0) 03/17/23 04:19 MCV 97.0 fL (81.0-99.0) 03/17/23 04:19 MCH 30.9 pg (27.0-31.0) 03/17/23 04:19 MCHC 31.9 g/dL (32.0-36.0) L 03/17/23 04:19 RDW 14.3 % (12.0-15.0) 03/17/23 04:19 Plt Count 176 10^3/uL (130-450) 03/17/23 04:19 MPV 10.9 fL (7.9-10.8) H 03/17/23 04:19 Neut # (Auto) 11.7 10^3/uL (1.5-6.6) H 03/17/23 04:19 Lymph # (Auto) 1.3 10^3/uL (1.5-3.5) L 03/17/23 04:19 [place] # (Auto) 1.3 10^3/uL (0.0-1.0) H 03/17/23 04:19 Eos # (Auto) 0.0 10^3/uL (0.0-0.7) 03/17/23 04:19 Baso # (Auto) 0.0 10^3/uL (0.0-0.1) 03/17/23 04:19 Absolute Nucleated RBC 0.00 x10^3/uL 03/17/23 04:19 Nucleated RBC % 0.0 /100WBC 03/17/23 04:19 VBG pH 7.447 (7.31-7.41) H 03/16/23 13:35 VBG pCO2 28.7 mmHg (41-51) L 03/16/23 13:35 VBG pO2 65.8 mmHg (25-47) H 03/16/23 13:35 VBG HCO3 19.4 mmol/L (23-28) L 03/16/23 13:35 VBG Total CO2 20.2 mmol/L (24-29) L 03/16/23 13:35 VBG O2 Saturation 92.5 % (60-80) H 03/16/23 13:35 VBG Base Excess -3.2 mmol/L (-2 - +2) L 03/16/23 13:35 Sodium 146 mmol/L (135-145) H 03/17/23 04:19 Potassium 2.9 mmol/L (3.5-5.0) L 03/17/23 12:50 Chloride 108 mmol/L (101-111) 03/17/23 04:19 Carbon Dioxide 28 mmol/L (21-32) 03/17/23 04:19 Anion Gap 10.0 (6-13) 03/17/23 04:19 BUN 32 mg/dL (6-20) H 03/17/23 04:19 Creatinine 0.9 mg/dL (0.4-1.0) 03/17/23 04:19 Estimated GFR (MDRD) 60 (>89) L 03/17/23 04:19 Glucose 112 mg/dL (70-100) H 03/17/23 04:19 POC Whole Bld Glucose 116 mg/dL (70 - 100) H 03/17/23 12:06 Lactic Acid 2.0 mmol/L (0.5-2.2) 03/16/23 13:35 Calcium 8.7 mg/dL (8.5-10.3) 03/17/23 04:19 Phosphorus 3.8 mg/dL (2.5-4.6) 03/17/23 04:19 Magnesium 2.0 mg/dL (1.7-2.8) 03/17/23 04:19 Total Bilirubin 2.2 mg/dL (0.2-1.0) H 03/16/23 13:35 AST 153 IU/L (10-42) H 03/16/23 13:35 ALT 151 IU/L (10-60) H 03/16/23 13:35 Alkaline Phosphatase 113 IU/L (42-121) 03/16/23 13:35 Troponin I High Sens 50.9 ng/L (2.3-14.8) H* 03/17/23 04:19 B-Natriuretic Peptide 1920 pg/mL (5-100) H 03/16/23 13:35 Total Protein 6.1 g/dL (6.7-8.2) L 03/16/23 13:35 Albumin 3.6 g/dL (3.2-5.5) 03/16/23 13:35 Globulin 2.5 g/dL (2.1-4.2) 03/16/23 13:35 Albumin/Globulin Ratio 1.4 (1.0-2.2) 03/16/23 13:35 TSH 2.10 uIU/mL (0.34-5.60) 03/16/23 13:35 Urine Color YELLOW 03/16/23 14:09 Urine Clarity HAZY (CLEAR) 03/16/23 14:09 Urine pH 5.0 PH (5.0-7.5) 03/16/23 14:09 Ur Specific [place] >=1.030 (1.002-1.030) H 03/16/23 14:09 Urine Protein >=300 mg/dL (NEGATIVE) H 03/16/23 14:09 Urine Glucose (UA) NEGATIVE mg/dL (NEGATIVE) 03/16/23 14:09 Urine Ketones NEGATIVE mg/dL (NEGATIVE) 03/16/23 14:09 Urine Occult Blood SMALL (NEGATIVE) H 03/16/23 14:09 Urine Nitrite NEGATIVE (NEGATIVE) 03/16/23 14:09 Urine Bilirubin NEGATIVE (NEGATIVE) 03/16/23 14:09 Urine Urobilinogen 1 (NORMAL) E.U./dL (NORMAL) 03/16/23 14:09 Ur Leukocyte Esterase NEGATIVE (NEGATIVE) 03/16/23 14:09 Urine RBC 6-10 /HPF (0-5) H 03/16/23 14:09 Urine WBC 0-3 /HPF (0-5) 03/16/23 14:09 Ur Squamous Epith Cells FEW Squamous (<= Few) 03/16/23 14:09 Amorphous Sediment Few /LPF 03/16/23 14:09 Urine Bacteria Few /HPF (None Seen) 03/16/23 14:09 Ur Microscopic Review INDICATED 03/16/23 14:09 Urine Culture Comments NOT INDICATED 03/16/23 14:09 Nasal Adenovirus (PCR) NOT DETECTED 03/16/23 13:45 Nasal B. parapertussis DNA (PCR) NOT DETECTED 03/16/23 13:45 Nasal Coronavir 229E PCR NOT DETECTED 03/16/23 13:45 Nasal Coronavir HKU1 PCR NOT DETECTED 03/16/23 13:45 Nasal Coronavir NL63 PCR NOT DETECTED 03/16/23 13:45 Nasal Coronavir OC43 PCR NOT DETECTED 03/16/23 13:45 Nasal Enterovir/Rhinovir PCR NOT DETECTED 03/16/23 13:45 Nasal Influenza B PCR NOT DETECTED 03/16/23 13:45 Nasal Influenza A PCR NOT DETECTED 03/16/23 13:45 Nasal Parainfluen 1 PCR NOT DETECTED 03/16/23 13:45 Nasal Parainfluen 2 PCR NOT DETECTED 03/16/23 13:45 Nasal Parainfluen 3 PCR NOT DETECTED 03/16/23 13:45 Nasal Parainfluen 4 PCR NOT DETECTED 03/16/23 13:45 Nasal RSV (PCR) NOT DETECTED 03/16/23 13:45 Nasal Screen MRSA (PCR) NEGATIVE (NEGATIVE) 03/16/23 17:17 Nasal B.pertussis DNA PCR NOT DETECTED 03/16/23 13:45 Nasal C.pneumoniae (PCR) NOT DETECTED 03/16/23 13:45 Corey Human Metapneumo PCR NOT DETECTED 03/16/23 13:45 Nasal M.pneumoniae (PCR) NOT DETECTED 03/16/23 13:45 Nasal SARS-CoV-2 (PCR) NOT DETECTED 03/16/23 13:45 - Procedures Procedures: Procedures REPLACEMENT OF RIGHT LENS WITH SYNTH SUB, PERC APPROACH (08/23/16) ABX Reporting Has patient been on IV antibiotics over the past 48 hours?: No
[2023-03-17] MEDS: POTASSIUM CHLOR 10 MEQ/100 ML 10 MEQ/100 ML BAG IV SCH ×6 (16:12→23:12)
[2023-03-17] MEDS: METOPROLOL 5 MG/5 ML VIAL IVP PRN ×3 (16:53→17:29)
[2023-03-17] MEDS: FAMOTIDINE 20 MG TABLET PO SCH (20:12)
[2023-03-17] MEDS: ATORVASTATIN 40 MG TABLET PO SCH (20:12)
[2023-03-18] MEDS: diltiaZEM INJ 125 MG in DEXTROSE 5% 100 ML IV SCH (02:28)
[2023-03-18 05:58] LABS: CALCIUM, IONIZED 1.06 mmol/L (1.15-1.33); VBG PH 7.46 (7.31-7.41)
[2023-03-18 05:59] LABS: BASOPHILS % (AUTO) 0.1 %; EOSINOPHILS % (AUTO) 0.1 %; HCT - HEMATOCRIT 44.7 % (37.0-47.0); HGB - HEMOGLOBIN 14.3 g/dL (12.0-16.0); LYMPHOCYTES # (AUTO) 1.4 10^3/uL (1.5-3.5); LYMPHOCYTES % (AUTO) 10.1 %; MEAN CORPUSCULAR HEMOGLOBIN 30.8 pg (27.0-31.0); MEAN CORPUSCULAR VOLUME 96.1 fL (81.0-99.0); MEAN PLATELET VOLUME 10.3 fL (7.9-10.8); MONOCYTES # (AUTO) 1.2 10^3/uL (0.0-1.0); MONOCYTES % (AUTO) 8.9 %; NEUTROPHILS % (AUTO) 80.3 %; PLT - PLATELET COUNT 187 10^3/uL (130-450); RED BLOOD COUNT 4.65 10^6/uL (4.20-5.40); RED CELL DISTRIBUTION WIDTH 14.1 % (12.0-15.0); WHITE BLOOD COUNT 13.7 x10^3/uL (4.8-10.8)
[2023-03-18 06:18] LABS: CALCIUM 8.5 mg/dL (8.5-10.3); POTASSIUM 3.7 mmol/L (3.5-5.0)
[2023-03-18] MEDS ORDERED: CALCIUM GLUC 1,000MG/50ML-NACL 1,000 MG/50 ML BAG IV ONE ×2 (06:27→11:59)
[2023-03-18] MEDS: SODIUM CHLORIDE FLUSH 0.9% 10 ML SYRINGE IVP PRN ×2 (06:49→21:18)
[2023-03-18] MEDS: polyethylene glycoL 3350 17 GM PACKET PO SCH (08:14)
[2023-03-18] MEDS: METOPROLOL TARTRATE 25 MG TABLET PO SCH ×2 (08:15→21:18)
[2023-03-18] MEDS: DULoxetine 30 MG CAPSULE PO SCH (08:51)
[2023-03-18] MEDS: APIXABAN 2.5 MG TABLET PO SCH ×2 (08:51→21:17)
[2023-03-18] MEDS: FUROSEMIDE 40 MG/4 ML VIAL IVP SCH ×2 (08:51→21:18)
[2023-03-18] MEDS: DONEPEZIL 5 MG TABLET PO SCH (08:51)
[2023-03-18] MEDS: FAMOTIDINE 20 MG TABLET PO SCH ×2 (08:51→21:18)
[2023-03-18] MEDS: SODIUM CHLORIDE FLUSH 0.9% 10 ML SYRINGE IVP SCH ×2 (09:00→18:59)
[2023-03-18] MEDS ORDERED: APIXABAN 2.5 MG TABLET PO SCH (09:00)
[2023-03-18] MEDS: POTASSIUM CHLOR 10 MEQ/100 ML 10 MEQ/100 ML BAG IV SCH ×5 (09:21→23:53)
[2023-03-18] MEDS ORDERED: METOPROLOL 5 MG/5 ML VIAL IVP PRN (10:27)
[2023-03-18 10:43] LABS: CALCIUM, IONIZED 1.06 mmol/L (1.15-1.33); VBG PH 7.512 (7.31-7.41)
[2023-03-18] MEDS: METOPROLOL 5 MG/5 ML VIAL IVP PRN ×2 (12:29→13:32)
--- NOTE | 2023-03-18 14:26 | PROVIDER PROGRESS NOTE ---
Assessment/Plan - Problem List (1) Atrial fibrillation with RVR Assessment/Plan: Assessment/Plan: Patient was started on IV diltiazem drip in ER have increased her metoprolol dosing today and will try to titrate down the diltiazem drip to off. Have ordered IV 5 mg metoprolol as needed -Continue with telemetry -check serial troponins -check echocardiogram (2) Bilateral pleural effusion Assessment/Plan: Conclusion/Plan: Suspect secondary to RVR atrial fibrillation resulting in congestive heart failure -Lasix 40 mg IV twice daily -Monitor I's and O's -Check echocardiogram -Check serial troponins -Troponins not concerning and condition improving (3) Encephalopathy Conclusion/Plan: From previous stroke she appears to have some dysarthria and some baseline altered mental status but family notes that over the past 2 days this has worsened. -Check CTA head and neck was no acute -Check echocardiogram -Check swallow eval prior to eating.Passed and is eating. -Given her RVR atrial fibrillation we will continue Eliquis as concern for clot formation within the atria -MRI of brain without contrast revealed no acute findings -Patient's mental status has been clearing daily (4) Liver lesion Conclusion/Plan: Incidental finding on CT of abdomen pelvis -Per radiology recommendations recheck in several months (5) Prerenal azotemia Conclusion/Plan: Monitor and avoid nephrotoxic agents (6) Anticoagulation adequate Conclusion/Plan: Due to RVR atrial fibrillation will continue with Eliquis anticoagulation - Current Meds Current Meds: Current Medications Generic Name Dose Route Start Last Admin Trade Name Freq PRN Reason Stop Dose Admin Albuterol 2.5 mg 03/16/23 18:46 03/16/23 20:40 Albuterol Neb 2.5 Mg/3 Ml INH 2.5 mg RTQ4H PRN Administration Wheezing Apixaban 2.5 mg 03/18/23 09:00 03/18/23 08:51 Apixaban 2.5 Mg Tablet PO 2.5 mg BID ALICIA Administration Atorvastatin Calcium 40 mg 03/16/23 21:00 03/17/23 20:12 Atorvastatin 40 Mg Tablet PO 40 mg QPM ALICIA Administration Donepezil HCl 10 mg 03/17/23 09:00 03/18/23 08:51 Donepezil 5 Mg Tablet PO 10 mg DAILY ALICIA Administration Duloxetine HCl 60 mg 03/17/23 09:00 03/18/23 08:51 Duloxetine 30 Mg Capsule PO 60 mg DAILY ALICIA Administration Famotidine 20 mg 03/17/23 21:00 03/18/23 08:51 Famotidine 20 Mg Tablet PO 20 mg BID ALICIA Administration Furosemide 60 mg 03/17/23 09:00 03/18/23 08:51 Furosemide 40 Mg/4 Ml Vial IVP 60 mg BID ALICIA Administration Hydromorphone HCl 0.5 mg 03/16/23 16:04 03/17/23 21:18 Hydromorphone 0.5 Mg/0.5 Ml Syringe IVP 0.5 mg Q2H PRN Administration Pain 8 to 10 Diltiazem HCl 125 mg/ Dextrose 125 mls @ 5 mls/hr 03/16/23 17:00 03/18/23 11:44 IV 0 mg/hr .Q25H ALICIA 0 mls/hr Titration Protocol 5 MG/HR Metoprolol Tartrate 25 mg 03/18/23 09:00 03/18/23 08:15 Metoprolol Tartrate 25 Mg Tablet PO 25 mg BID ALICIA Administration Metoprolol Tartrate 5 mg 03/18/23 10:40 03/18/23 13:32 Metoprolol 5 Mg/5 Ml Vial IVP 5 mg Q5MIN PRN Administration HR > 110 Polyethylene Glycol 17 gm 03/18/23 09:00 03/18/23 08:14 Polyethylene Glycol 3350 17 Gm Packet PO 17 gm DAILY ALICIA Administration Sodium Chloride 10 ml 03/16/23 17:00 03/18/23 09:00 Sodium Chloride Flush 0.9% 10 Ml Syringe IVP 10 ml 0100,0900,1700 ALICIA Administration Sodium Chloride 10 ml 03/16/23 16:04 03/18/23 06:49 Sodium Chloride Flush 0.9% 10 Ml Syringe IVP 10 ml PRN PRN Administration NEEDED PER PROVIDER ORDERS - Lab Result Fish Bone Diagrams: 03/18/23 05:44 03/18/23 05:44 - Additional Planning My Orders: My Active Orders 03/17/23 Dinner DIET [Soft Mechanical Diet] [DIET] 03/17/23 21:00 Famotidine [Pepcid] 20 mg PO BID 03/18/23 09:00 Apixaban [Eliquis] 2.5 mg PO BID Metoprolol Tartrate [Lopressor] 25 mg PO BID polyethylene glycoL 3350 [Miralax] 17 gm PO DAILY 03/18/23 10:40 Metoprolol Inj [Lopressor Inj] 5 mg IVP Q5MIN PRN 03/18/23 14:30 POTASSIUM [CHEM] Timed 03/19/23 05:00 BMP - BASIC METABOLIC PANEL [CHEM] DAILYLAB CBC - COMP BLD CT W/AUTO DIFF [HEME] DAILYLAB TROPONIN I HIGH SENSITIVITY [IAI] DAILYLAB 03/20/23 05:00 BMP - BASIC METABOLIC PANEL [CHEM] DAILYLAB CBC - COMP BLD CT W/AUTO DIFF [HEME] DAILYLAB TROPONIN I HIGH SENSITIVITY [IAI] DAILYLAB Subjective - Subjective Patient Reports: Feeling Better, Resting Comfortably Objective Vital Signs: Vital Signs - 24 hr 03/17/23 03/17/23 03/17/23 15:00 15:06 15:22 Temperature 36.4 C L Heart Rate [ 103 H Monitoring electrodes] Respiratory 22 Rate Blood Pressure Blood Pressure 104/79 [Right Brachial artery] O2 Saturation 95 03/17/23 03/17/23 03/17/23 16:00 16:53 17:00 Temperature Heart Rate [ 111 H 93 Monitoring electrodes] Respiratory 21 19 Rate Blood Pressure 112/67 Blood Pressure 109/72 99/80 [Right Brachial artery] O2 Saturation 96 96 03/17/23 03/17/23 03/17/23 17:10 17:29 17:35 Temperature Heart Rate [ Monitoring electrodes] Respiratory Rate Blood Pressure 100/63 101/75 105/80 Blood Pressure [Right Brachial artery] O2 Saturation 03/17/23 03/17/23 03/17/23 17:40 17:59 18:00 Temperature 36.5 C Heart Rate [ 94 Monitoring electrodes] Respiratory 26 H Rate Blood Pressure 100/80 95/80 Blood Pressure 95/80 [Right Brachial artery] O2 Saturation 95 03/17/23 03/17/23 03/17/23 19:00 20:00 21:00 Temperature 36.4 C L Heart Rate [ 95 116 H 109 H Monitoring electrodes] Respiratory 13 27 H 26 H Rate Blood Pressure Blood Pressure 93/59 L 89/69 L 111/89 H [Right Brachial artery] O2 Saturation 96 94 96 03/17/23 03/18/23 03/18/23 22:00 00:00 01:00 Temperature Heart Rate [ 116 H 120 H 116 H Monitoring electrodes] Respiratory 35 H 11 L 18 Rate Blood Pressure Blood Pressure 106/85 H 105/90 H 114/94 H [Right Brachial artery] O2 Saturation 90 L 93 94 03/18/23 03/18/23 03/18/23 02:00 03:00 04:00 Temperature 36.5 C Heart Rate [ 110 H 111 H 122 H Monitoring electrodes] Respiratory 14 24 14 Rate Blood Pressure Blood Pressure 108/86 H 116/82 H 107/86 H [Right Brachial artery] O2 Saturation 96 96 96 03/18/23 03/18/23 03/18/23 05:00 06:00 07:00 Temperature 36.5 C Heart Rate [ 115 H 126 H 121 H Monitoring electrodes] Respiratory 21 28 H 26 H Rate Blood Pressure Blood Pressure 116/82 H 116/84 H 114/99 H [Right Brachial artery] O2 Saturation 95 94 93 03/18/23 03/18/23 03/18/23 08:00 08:15 09:00 Temperature 36.5 C Heart Rate [ 111 H 106 H Monitoring electrodes] Respiratory 19 15 Rate Blood Pressure 118/88 H Blood Pressure 118/88 H 106/88 H [Right Brachial artery] O2 Saturation 93 03/18/23 03/18/23 03/18/23 10:00 11:00 12:00 Temperature 36.1 C L Heart Rate [ 107 H 100 101 H Monitoring electrodes] Respiratory 21 24 25 H Rate Blood Pressure Blood Pressure 103/87 H 111/95 H 110/79 [Right Brachial artery] O2 Saturation 96 03/18/23 03/18/23 03/18/23 12:29 12:59 13:00 Temperature 36.2 C L Heart Rate [ 98 Monitoring electrodes] Respiratory 24 Rate Blood Pressure 127/93 H 115/95 H Blood Pressure 107/93 H [Right Brachial artery] O2 Saturation 99 03/18/23 13:32 Temperature Heart Rate [ Monitoring electrodes] Respiratory Rate Blood Pressure 113/84 H Blood Pressure [Right Brachial artery] O2 Saturation Oxygen O2 Source Nasal cannula I&O (Last 24 Hrs): Intake and Output Totals x24h 03/16/23 03/17/23 03/18/23 23:59 23:59 23:59 Intake Total 8397.698 8277.332 701.502 Output Total 100 2300 1085 Balance 1018.583 -1169.668 -811.218 General: Alert HEENT: Atraumatic Neck: Supple Neuro: Alert, Non Focal Cardiovascular: Other (Rate controlled A-fib on monitor) Respiratory: Other (Decreased breath sounds at her bases) Extremities: Other (Trace bilateral pedal edema) Skin: No rashes - Results Results: Laboratory Results WBC 13.7 x10^3/uL (4.8-10.8) H 03/18/23 05:44 RBC 4.65 10^6/uL (4.20-5.40) 03/18/23 05:44 Hgb 14.3 g/dL (12.0-16.0) 03/18/23 05:44 Hct 44.7 % (37.0-47.0) 03/18/23 05:44 MCV 96.1 fL (81.0-99.0) 03/18/23 05:44 MCH 30.8 pg (27.0-31.0) 03/18/23 05:44 MCHC 32.0 g/dL (32.0-36.0) 03/18/23 05:44 RDW 14.1 % (12.0-15.0) 03/18/23 05:44 Plt Count 187 10^3/uL (130-450) 03/18/23 05:44 MPV 10.3 fL (7.9-10.8) 03/18/23 05:44 Neut # (Auto) 11.0 10^3/uL (1.5-6.6) H 03/18/23 05:44 Lymph # (Auto) 1.4 10^3/uL (1.5-3.5) L 03/18/23 05:44 [place] # (Auto) 1.2 10^3/uL (0.0-1.0) H 03/18/23 05:44 Eos # (Auto) 0.0 10^3/uL (0.0-0.7) 03/18/23 05:44 Baso # (Auto) 0.0 10^3/uL (0.0-0.1) 03/18/23 05:44 Absolute Nucleated RBC 0.00 x10^3/uL 03/18/23 05:44 Nucleated RBC % 0.0 /100WBC 03/18/23 05:44 VBG pH 7.512 (7.31-7.41) H 03/18/23 10:35 VBG pCO2 28.7 mmHg (41-51) L 03/16/23 13:35 VBG pO2 65.8 mmHg (25-47) H 03/16/23 13:35 VBG HCO3 19.4 mmol/L (23-28) L 03/16/23 13:35 VBG Total CO2 20.2 mmol/L (24-29) L 03/16/23 13:35 VBG O2 Saturation 92.5 % (60-80) H 03/16/23 13:35 VBG Base Excess -3.2 mmol/L (-2 - +2) L 03/16/23 13:35 Ionized Calcium 1.06 mmol/L (1.15-1.33) L 03/18/23 10:35 Sodium 140 mmol/L (135-145) 03/18/23 05:44 Potassium 3.7 mmol/L (3.5-5.0) 03/18/23 05:44 Chloride 104 mmol/L (101-111) 03/18/23 05:44 Carbon Dioxide 28 mmol/L (21-32) 03/18/23 05:44 Anion Gap 8.0 (6-13) 03/18/23 05:44 BUN 30 mg/dL (6-20) H 03/18/23 05:44 Creatinine 1.0 mg/dL (0.4-1.0) 03/18/23 05:44 Estimated GFR (MDRD) 53 (>89) L 03/18/23 05:44 Glucose 120 mg/dL (70-100) H 03/18/23 05:44 POC Whole Bld Glucose 116 mg/dL (70 - 100) H 03/17/23 12:06 Lactic Acid 2.0 mmol/L (0.5-2.2) 03/16/23 13:35 Calcium 8.5 mg/dL (8.5-10.3) 03/18/23 05:44 Phosphorus 2.9 mg/dL (2.5-4.6) 03/18/23 05:44 Magnesium 2.0 mg/dL (1.7-2.8) 03/18/23 05:44 Total Bilirubin 2.2 mg/dL (0.2-1.0) H 03/16/23 13:35 AST 153 IU/L (10-42) H 03/16/23 13:35 ALT 151 IU/L (10-60) H 03/16/23 13:35 Alkaline Phosphatase 113 IU/L (42-121) 03/16/23 13:35 Troponin I High Sens 28.2 ng/L (2.3-14.8) H* 03/18/23 05:44 B-Natriuretic Peptide 1920 pg/mL (5-100) H 03/16/23 13:35 Total Protein 6.1 g/dL (6.7-8.2) L 03/16/23 13:35 Albumin 3.6 g/dL (3.2-5.5) 03/16/23 13:35 Globulin 2.5 g/dL (2.1-4.2) 03/16/23 13:35 Albumin/Globulin Ratio 1.4 (1.0-2.2) 03/16/23 13:35 TSH 2.10 uIU/mL (0.34-5.60) 03/16/23 13:35 Urine Color YELLOW 03/16/23 14:09 Urine Clarity HAZY (CLEAR) 03/16/23 14:09 Urine pH 5.0 PH (5.0-7.5) 03/16/23 14:09 Ur Specific [place] >=1.030 (1.002-1.030) H 03/16/23 14:09 Urine Protein >=300 mg/dL (NEGATIVE) H 03/16/23 14:09 Urine Glucose (UA) NEGATIVE mg/dL (NEGATIVE) 03/16/23 14:09 Urine Ketones NEGATIVE mg/dL (NEGATIVE) 03/16/23 14:09 Urine Occult Blood SMALL (NEGATIVE) H 03/16/23 14:09 Urine Nitrite NEGATIVE (NEGATIVE) 03/16/23 14:09 Urine Bilirubin NEGATIVE (NEGATIVE) 03/16/23 14:09 Urine Urobilinogen 1 (NORMAL) E.U./dL (NORMAL) 03/16/23 14:09 Ur Leukocyte Esterase NEGATIVE (NEGATIVE) 03/16/23 14:09 Urine RBC 6-10 /HPF (0-5) H 03/16/23 14:09 Urine WBC 0-3 /HPF (0-5) 03/16/23 14:09 Ur Squamous Epith Cells FEW Squamous (<= Few) 03/16/23 14:09 Amorphous Sediment Few /LPF 03/16/23 14:09 Urine Bacteria Few /HPF (None Seen) 03/16/23 14:09 Ur Microscopic Review INDICATED 03/16/23 14:09 Urine Culture Comments NOT INDICATED 03/16/23 14:09 Nasal Adenovirus (PCR) NOT DETECTED 03/16/23 13:45 Nasal B. parapertussis DNA (PCR) NOT DETECTED 03/16/23 13:45 Nasal Coronavir 229E PCR NOT DETECTED 03/16/23 13:45 Nasal Coronavir HKU1 PCR NOT DETECTED 03/16/23 13:45 Nasal Coronavir NL63 PCR NOT DETECTED 03/16/23 13:45 Nasal Coronavir OC43 PCR NOT DETECTED 03/16/23 13:45 Nasal Enterovir/Rhinovir PCR NOT DETECTED 03/16/23 13:45 Nasal Influenza B PCR NOT DETECTED 03/16/23 13:45 Nasal Influenza A PCR NOT DETECTED 03/16/23 13:45 Nasal Parainfluen 1 PCR NOT DETECTED 03/16/23 13:45 Nasal Parainfluen 2 PCR NOT DETECTED 03/16/23 13:45 Nasal Parainfluen 3 PCR NOT DETECTED 03/16/23 13:45 Nasal Parainfluen 4 PCR NOT DETECTED 03/16/23 13:45 Nasal RSV (PCR) NOT DETECTED 03/16/23 13:45 Nasal Screen MRSA (PCR) NEGATIVE (NEGATIVE) 03/16/23 17:17 Nasal B.pertussis DNA PCR NOT DETECTED 03/16/23 13:45 Nasal C.pneumoniae (PCR) NOT DETECTED 03/16/23 13:45 [place] Human Metapneumo PCR NOT DETECTED 03/16/23 13:45 Nasal M.pneumoniae (PCR) NOT DETECTED 03/16/23 13:45 Nasal SARS-CoV-2 (PCR) NOT DETECTED 03/16/23 13:45 - Procedures Procedures: Procedures REPLACEMENT OF RIGHT LENS WITH SYNTH SUB, PERC APPROACH (08/23/16) ABX Reporting Has patient been on IV antibiotics over the past 48 hours?: No
[2023-03-18 18:42] LABS: CALCIUM, IONIZED 0.94 mmol/L (1.15-1.33)
[2023-03-18 18:43] LABS: VBG PH 7.602 (7.31-7.41)
[2023-03-18] MEDS ORDERED: CALCIUM GLUCONATE IN NS 0.9% 2,000 MG/100 ML BAG IV ONE (18:47)
[2023-03-18 19:21] LABS: CALCIUM, IONIZED 1.11 mmol/L (1.15-1.33); VBG PH 7.476 (7.31-7.41)
[2023-03-18] MEDS: ATORVASTATIN 40 MG TABLET PO SCH (21:17)
[2023-03-18] MEDS: POTASSIUM CHLORIDE 20 MEQ TABLET PO ONE ×2 (23:08→23:13)
[2023-03-19] MEDS: SODIUM CHLORIDE FLUSH 0.9% 10 ML SYRINGE IVP SCH ×4 (00:26→20:33)
[2023-03-19] MEDS: POTASSIUM CHLOR 10 MEQ/100 ML 10 MEQ/100 ML BAG IV SCH ×3 (01:12→06:45)
[2023-03-19 04:51] LABS: BASOPHILS % (AUTO) 0.2 %; EOSINOPHILS # (AUTO) 0.1 10^3/uL (0.0-0.7); EOSINOPHILS % (AUTO) 0.7 %; HCT - HEMATOCRIT 48.6 % (37.0-47.0); HGB - HEMOGLOBIN 15.7 g/dL (12.0-16.0); LYMPHOCYTES # (AUTO) 1.3 10^3/uL (1.5-3.5); LYMPHOCYTES % (AUTO) 12.2 %; MEAN CORPUSCULAR HEMOGLOBIN 31.2 pg (27.0-31.0); MEAN CORPUSCULAR HGB CONC 32.3 g/dL (32.0-36.0); MEAN CORPUSCULAR VOLUME 96.6 fL (81.0-99.0); MEAN PLATELET VOLUME 10.3 fL (7.9-10.8); MONOCYTES # (AUTO) 0.8 10^3/uL (0.0-1.0); MONOCYTES % (AUTO) 7.1 %; NEUTROPHILS # (AUTO) 8.6 10^3/uL (1.5-6.6); NEUTROPHILS % (AUTO) 79.5 %; PLT - PLATELET COUNT 177 10^3/uL (130-450); RED BLOOD COUNT 5.03 10^6/uL (4.20-5.40); RED CELL DISTRIBUTION WIDTH 14.1 % (12.0-15.0); WHITE BLOOD COUNT 10.8 x10^3/uL (4.8-10.8)
[2023-03-19 04:55] LABS: CALCIUM, IONIZED 1.06 mmol/L (1.15-1.33); VBG PH 7.456 (7.31-7.41)
[2023-03-19 05:03] LABS: CALCIUM 9.1 mg/dL (8.5-10.3); CREATININE 0.9 mg/dL (0.4-1.0); POTASSIUM 3.8 mmol/L (3.5-5.0)
[2023-03-19 05:15] LABS: MAGNESIUM 1.8 mg/dL (1.7-2.8)
[2023-03-19] MEDS: SODIUM CHLORIDE FLUSH 0.9% 10 ML SYRINGE IVP PRN (05:34)
[2023-03-19] MEDS ORDERED: CALCIUM GLUC 1,000MG/50ML-NACL 1,000 MG/50 ML BAG IV ONE (07:00)
[2023-03-19] MEDS: METOPROLOL TARTRATE 25 MG TABLET PO SCH (07:39)
[2023-03-19] MEDS ORDERED: METOPROLOL SUCCINATE 50 MG TABLET PO SCH ×2 (08:12→20:00)
--- NOTE | 2023-03-19 08:24 | PROVIDER PROGRESS NOTE ---
Subjective - Subjective Pt reports feeling: No change (The patient was not communicative when I saw her today. She had just been put in her recloiner chair by 2 RNs, and appeard in no distress, but she she just stared at me when I asked her questions.) Objective - Vital Signs/Intake & Output Vital Signs: Vital Signs Temp Pulse Resp BP BP Pulse Ox O2 Flow Rate 03/19/23 08:00 36.5 C 114 H 18 114/84 H 97 03/19/23 07:39 113/93 H 03/19/23 07:00 113 H 15 113/93 H 98 1 03/19/23 06:00 128 H 14 130/91 H 98 1 03/19/23 05:00 101 H 18 127/86 H 99 1 Intake & Output: Intake & Output 03/16/23 03/17/23 03/18/23 03/19/23 23:59 23:59 23:59 23:59 Intake Total 6844.243 4804.332 1071.502 400 Output Total 100 2300 2680 800 Balance 1018.583 -1169.668 -1608.498 -400 - Objective General Appearance: positive: No acute distress, Other (Disheveled.) Eyes Bilateral: positive: Normal inspection, EOMI ENT: positive: ENT inspection nml, No signs of dehydration Neck: positive: Nml inspection, No JVD Respiratory: positive: No respiratory distress, Breath sounds nml Cardiovascular: positive: No murmur, Irregularly irregular Abdomen: positive: Non-tender, No distention Extremities: positive: Non-tender, No pedal edema Neurologic/Psychiatric: positive: Motor nml, Disoriented to person, Disoriented to place, Disoriented to time, Other (Not communicative) - Lab Results Fish Bones: 03/19/23 04:43 03/19/23 09:53 Other Labs: Lab Results x24hrs 03/19/23 03/19/23 03/19/23 Range/Units 04:43 04:43 04:43 WBC (4.8-10.8) x10^3/uL RBC (4.20-5.40) 10^6/uL Hgb (12.0-16.0) g/dL Hct (37.0-47.0) % MCV (81.0-99.0) fL MCH (27.0-31.0) pg MCHC (32.0-36.0) g/dL RDW (12.0-15.0) % Plt Count (130-450) 10^3/uL MPV (7.9-10.8) fL Neut # (Auto) (1.5-6.6) 10^3/uL Lymph # (Auto) (1.5-3.5) 10^3/uL [place] # (Auto) (0.0-1.0) 10^3/uL Eos # (Auto) (0.0-0.7) 10^3/uL Baso # (Auto) (0.0-0.1) 10^3/uL Absolute Nucleated RBC x10^3/uL Nucleated RBC % /100WBC VBG pH 7.456 H (7.31-7.41) Ionized Calcium 1.06 L (1.15-1.33) mmol/L Sodium (135-145) mmol/L Potassium (3.5-5.0) mmol/L Chloride (101-111) mmol/L Carbon Dioxide (21-32) mmol/L Anion Gap (6-13) BUN (6-20) mg/dL Creatinine (0.4-1.0) mg/dL Estimated GFR (MDRD) (>89) Glucose (70-100) mg/dL Calcium (8.5-10.3) mg/dL Phosphorus 3.0 (2.5-4.6) mg/dL Magnesium 1.8 (1.7-2.8) mg/dL Troponin I High Sens 25.6 H* (2.3-14.8) ng/L 03/19/23 03/19/23 03/18/23 Range/Units 04:43 04:43 22:07 WBC 10.8 (4.8-10.8) x10^3/uL RBC 5.03 (4.20-5.40) 10^6/uL Hgb 15.7 (12.0-16.0) g/dL Hct 48.6 H (37.0-47.0) % MCV 96.6 (81.0-99.0) fL MCH 31.2 H (27.0-31.0) pg MCHC 32.3 (32.0-36.0) g/dL RDW 14.1 (12.0-15.0) % Plt Count 177 (130-450) 10^3/uL MPV 10.3 (7.9-10.8) fL Neut # (Auto) 8.6 H (1.5-6.6) 10^3/uL Lymph # (Auto) 1.3 L (1.5-3.5) 10^3/uL [place] # (Auto) 0.8 (0.0-1.0) 10^3/uL Eos # (Auto) 0.1 (0.0-0.7) 10^3/uL Baso # (Auto) 0.0 (0.0-0.1) 10^3/uL Absolute Nucleated RBC 0.00 x10^3/uL Nucleated RBC % 0.0 /100WBC VBG pH (7.31-7.41) Ionized Calcium (1.15-1.33) mmol/L Sodium 140 (135-145) mmol/L Potassium 3.8 3.6 (3.5-5.0) mmol/L Chloride 98 L (101-111) mmol/L Carbon Dioxide 30 (21-32) mmol/L Anion Gap 12.0 (6-13) BUN 26 H (6-20) mg/dL Creatinine 0.9 (0.4-1.0) mg/dL Estimated GFR (MDRD) 60 L (>89) Glucose 101 H (70-100) mg/dL Calcium 9.1 (8.5-10.3) mg/dL Phosphorus (2.5-4.6) mg/dL Magnesium (1.7-2.8) mg/dL Troponin I High Sens (2.3-14.8) ng/L 03/18/23 03/18/23 03/18/23 Range/Units 19:15 18:35 14:31 WBC (4.8-10.8) x10^3/uL RBC (4.20-5.40) 10^6/uL Hgb (12.0-16.0) g/dL Hct (37.0-47.0) % MCV (81.0-99.0) fL MCH (27.0-31.0) pg MCHC (32.0-36.0) g/dL RDW (12.0-15.0) % Plt Count (130-450) 10^3/uL MPV (7.9-10.8) fL Neut # (Auto) (1.5-6.6) 10^3/uL Lymph # (Auto) (1.5-3.5) 10^3/uL [place] # (Auto) (0.0-1.0) 10^3/uL Eos # (Auto) (0.0-0.7) 10^3/uL Baso # (Auto) (0.0-0.1) 10^3/uL Absolute Nucleated RBC x10^3/uL Nucleated RBC % /100WBC VBG pH 7.476 H 7.602 H (7.31-7.41) Ionized Calcium 1.11 L 0.94 L (1.15-1.33) mmol/L Sodium (135-145) mmol/L Potassium 3.8 (3.5-5.0) mmol/L Chloride (101-111) mmol/L Carbon Dioxide (21-32) mmol/L Anion Gap (6-13) BUN (6-20) mg/dL Creatinine (0.4-1.0) mg/dL Estimated GFR (MDRD) (>89) Glucose (70-100) mg/dL Calcium (8.5-10.3) mg/dL Phosphorus (2.5-4.6) mg/dL Magnesium (1.7-2.8) mg/dL Troponin I High Sens (2.3-14.8) ng/L 03/18/23 Range/Units 10:35 WBC (4.8-10.8) x10^3/uL RBC (4.20-5.40) 10^6/uL Hgb (12.0-16.0) g/dL Hct (37.0-47.0) % MCV (81.0-99.0) fL MCH (27.0-31.0) pg MCHC (32.0-36.0) g/dL RDW (12.0-15.0) % Plt Count (130-450) 10^3/uL MPV (7.9-10.8) fL Neut # (Auto) (1.5-6.6) 10^3/uL Lymph # (Auto) (1.5-3.5) 10^3/uL [place] # (Auto) (0.0-1.0) 10^3/uL Eos # (Auto) (0.0-0.7) 10^3/uL Baso # (Auto) (0.0-0.1) 10^3/uL Absolute Nucleated RBC x10^3/uL Nucleated RBC % /100WBC VBG pH 7.512 H (7.31-7.41) Ionized Calcium 1.06 L (1.15-1.33) mmol/L Sodium (135-145) mmol/L Potassium (3.5-5.0) mmol/L Chloride (101-111) mmol/L Carbon Dioxide (21-32) mmol/L Anion Gap (6-13) BUN (6-20) mg/dL Creatinine (0.4-1.0) mg/dL Estimated GFR (MDRD) (>89) Glucose (70-100) mg/dL Calcium (8.5-10.3) mg/dL Phosphorus (2.5-4.6) mg/dL Magnesium (1.7-2.8) mg/dL Troponin I High Sens (2.3-14.8) ng/L Assessment/Plan - Problem List (1) Atrial fibrillation with RVR Impression: Patient presented with Afib-flutter with a HR of 150 and was started on IV diltiazem drip in ER, and has been in ICU on Dilt drip. She has also been continued on her Metoprolol Tartrate 25 mg daily, then increased to BID, plus ordered IV 5 mg Metoprolol as needed. For the last several days the HR is only down to 112-120. Troponins were not concerning. TSH was normal. Plan: Remain in the ICU until HR is better contriolled, in case Dilt drip nees to be resumed Will change her short acting Metoprolol Tartrate to Metoprolol Succinate and increase the dose to 50 mg BID, give at 0800, 1999 Continue on telemetry Awaiting Echocardiogram (was ordered on Sat 03/16 and we had no Geosciences Professor here until today Tu03/19) Continue Eliquis for stroke prophylaxis in pt with Afib (2) Bilateral pleural effusion Conclusion/Plan: Suspect secondary to RVR atrial fibrillation causing congestive heart failure. The BNP was 1920. She has been on Lasix 40 mg IV twice daily and I's and O's show abouty 2L (-) today Troponins not concerning and condition improving Plan: Will recheck BNP Will recheck size of pleural effusions on a CXR, to be done today Cont iv BID Lasix untl pleural effusions are smaller or until a thoracentesis may need to be done. Will change to po Lasix soon. Cont to monitor I's and O's Awaiting Echocardiogram, which will help determine meds (3) Acute systolic heart failure Conclusion/Plan: Her last Eco was done here in January 2023, just 2 mos ago this year, and showed an LVEF of 55%. Her Echo was done today and showed 4-chamber enlargement and severely depressed LVEF of <20%. This change in global LV function in such a short time is consistent with tachycardia-induced cardiomyopathy. This EF also is consistent with her BNP at admission of 1919. Plan: Will continue to work aggressively on heart rate control. I will add Spironolactone and an GARY inhibitor. Since there was no petroleum laboratory technician available here for all the days the patient has been here, these 2 medications have not yet been started because today was the first day when we kn ew this depressed LVEF. (4) Cor Pulmonale Conclusion/Plan: Her last Echo was done here in January 2023, just 2 mos ago this year, and showed a normal RV size and function. Her Echo was done today and showed new RV enlargement and severely depressed LRVEF. Plan: As in #3 (5) Dementia Conclusion/Plan: After her stroke 7 mos ago, she appears to have some dysarthria and some baseline altered mental status but family notes that over the past 2 days before admission, that had worsened. We checked CTA head and neck and there was nothing acute. And an MRI of brain without contrast revealed no acute findings She passed swallow eval and is eating. Patient's mental status has been clearing daily; she is alert, cooperative but not speaking. Plan: Given her atrial fibrillation we will continue Eliquis as stroke prophylaxis Will request PT and OT when HR <100 We have continued her home meds of Donepezil and Cymbalta (6) Liver lesion Conclusion/Plan: Incidental finding on CT of abdomen pelvis Plan: Per radiology recommendations recheck in several months (7) Prerenal azotemia Conclusion/Plan: Stable and even improving BUN/creat ratio, ever since being on IV BID Lasix (all labs were reviewed). Plan: Monitor BMP daily and avoid nephrotoxic agents Continue diuretics (8) Anticoagulation adequate Conclusion/Plan: Plan: Due to her atrial fibrillation, we will continue with her Eliquis anticoagulation
--- NOTE | 2023-03-19 08:59 | XRAY Report ---
PROCEDURE: Chest 1 View X-Ray INDICATIONS: Re-eval of bilat pleural effusions TECHNIQUE: One view of the chest was acquired. COMPARISON: Chest radiograph 03/16/[address] chest 03/16/2023. FINDINGS: Surgical changes and devices: None. Lungs and pleura: Patient is rotated to the right. Bilateral pleural effusions are present atelectas is of the lung bases. No new pulmonary opacities. Mediastinum: Mediastinal contours appear normal. Heart size is stable. Bones and chest wall: No suspicious bony lesions. Overlying soft tissues appear unremarkable. IMPRESSION: Stable bilateral pleural effusions and adjacent atelectasis. Reviewed by: Ti Chan MD on 03/19/2023 8:57 AM PDT Approved by: Ti Chan MD on 03/19/2023 8:57 AM PDT Station ID: [id number]
[2023-03-19] MEDS: DONEPEZIL 5 MG TABLET PO SCH (09:03)
[2023-03-19] MEDS: DULoxetine 30 MG CAPSULE PO SCH (09:03)
[2023-03-19] MEDS: FAMOTIDINE 20 MG TABLET PO SCH (09:03)
[2023-03-19] MEDS: polyethylene glycoL 3350 17 GM PACKET PO SCH (09:04)
[2023-03-19] MEDS: MAGNESIUM OXIDE 400 MG TABLET PO SCH ×2 (09:04→14:28)
[2023-03-19] MEDS: APIXABAN 2.5 MG TABLET PO SCH ×2 (09:04→20:32)
[2023-03-19] MEDS ORDERED: METOPROLOL SUCCINATE 25 MG TABLET PO ONE (09:09)
[2023-03-19] MEDS: FUROSEMIDE 40 MG/4 ML VIAL IVP SCH ×2 (10:05→20:33)
[2023-03-19] MEDS: SENNA 8.6 MG TABLET PO SCH (11:32)
[2023-03-19] MEDS: MULTIVITAMIN W/MINERALS TABLET PO SCH (11:32)
[2023-03-19] MEDS: DOCUSATE SODIUM 250 MG CAPSULE PO SCH (11:32)
[2023-03-19 13:01] LABS: CALCIUM, IONIZED 1.14 mmol/L (1.15-1.33); VBG PH 7.457 (7.31-7.41)
[2023-03-19] MEDS ORDERED: DIGOXIN 500 MCG/2 ML AMP IVP STA (14:34)
[2023-03-19] MEDS: SPIRONOLACTONE 25 MG TABLET PO SCH (16:17)
[2023-03-19] MEDS: ATORVASTATIN 40 MG TABLET PO SCH (20:30)
[2023-03-19] MEDS: METOPROLOL SUCCINATE 50 MG TABLET PO SCH (20:30)
[2023-03-19] MEDS: lisinopriL 5 MG TABLET PO SCH (20:31)
[2023-03-20 04:52] LABS: BASOPHILS % (AUTO) 0.2 %; EOSINOPHILS # (AUTO) 0.1 10^3/uL (0.0-0.7); HCT - HEMATOCRIT 47.4 % (37.0-47.0); HGB - HEMOGLOBIN 15.4 g/dL (12.0-16.0); LYMPHOCYTES # (AUTO) 1.6 10^3/uL (1.5-3.5); LYMPHOCYTES % (AUTO) 12.5 %; MEAN CORPUSCULAR HEMOGLOBIN 30.4 pg (27.0-31.0); MEAN CORPUSCULAR HGB CONC 32.5 g/dL (32.0-36.0); MEAN CORPUSCULAR VOLUME 93.7 fL (81.0-99.0); MEAN PLATELET VOLUME 10.5 fL (7.9-10.8); MONOCYTES % (AUTO) 8.3 %; NEUTROPHILS # (AUTO) 9.8 10^3/uL (1.5-6.6); NEUTROPHILS % (AUTO) 77.6 %; PLT - PLATELET COUNT 199 10^3/uL (130-450); RED BLOOD COUNT 5.06 10^6/uL (4.20-5.40); RED CELL DISTRIBUTION WIDTH 13.7 % (12.0-15.0); WHITE BLOOD COUNT 12.6 x10^3/uL (4.8-10.8)
[2023-03-20 04:58] LABS: CALCIUM, IONIZED 1.07 mmol/L (1.15-1.33); VBG PH 7.545 (7.31-7.41)
[2023-03-20 05:09] LABS: CREATININE 0.9 mg/dL (0.4-1.0); PHOSPHORUS 4.2 mg/dL (2.5-4.6); POTASSIUM 3.6 mmol/L (3.5-5.0)
[2023-03-20] MEDS ORDERED: POTASSIUM CHLORIDE 20 MEQ TABLET PO ONE (08:00)
[2023-03-20] MEDS: polyethylene glycoL 3350 17 GM PACKET PO SCH (08:38)
--- NOTE | 2023-03-20 08:39 | PROVIDER PROGRESS NOTE ---
Subjective - Subjective Pt reports feeling: Improved (She is more alert and more talkative. She was able to answer in a complete sentence and said "I feel good today") Objective - Vital Signs/Intake & Output Vital Signs: Vital Signs Pulse Resp BP Pulse Ox 03/20/23 07:00 101 H 20 107/78 95 03/20/23 06:00 95 21 92/76 96 03/20/23 05:00 90 19 95/74 96 Intake & Output: Intake & Output 03/17/23 03/18/23 03/19/23 03/20/23 23:59 23:59 23:59 23:59 Intake Total 1045.943 5326.502 1680 Output Total 2300 2680 3085 515 Balance -1169.668 -1608.498 -1405 -515 - Objective General Appearance: positive: No acute distress, Other (Disheveled) Eyes Bilateral: positive: Normal inspection ENT: positive: No signs of dehydration Neck: positive: Nml inspection Respiratory: positive: No respiratory distress Cardiovascular: positive: No murmur, Irregularly irregular Abdomen: positive: Non-tender, No distention Skin: positive: Warm, Dry Extremities: positive: Non-tender, No pedal edema Neurologic/Psychiatric: positive: Disoriented to person, Disoriented to place, Disoriented to time - Lab Results Fish Bones: 03/20/23 04:25 03/20/23 04:25 Other Labs: Lab Results x24hrs 03/20/23 03/20/23 03/20/23 Range/Units 04:25 04:25 04:25 WBC 12.6 H (4.8-10.8) x10^3/uL RBC 5.06 (4.20-5.40) 10^6/uL Hgb 15.4 (12.0-16.0) g/dL Hct 47.4 H (37.0-47.0) % MCV 93.7 (81.0-99.0) fL MCH 30.4 (27.0-31.0) pg MCHC 32.5 (32.0-36.0) g/dL RDW 13.7 (12.0-15.0) % Plt Count 199 (130-450) 10^3/uL MPV 10.5 (7.9-10.8) fL Neut # (Auto) 9.8 H (1.5-6.6) 10^3/uL Lymph # (Auto) 1.6 (1.5-3.5) 10^3/uL [place] # (Auto) 1.0 (0.0-1.0) 10^3/uL Eos # (Auto) 0.1 (0.0-0.7) 10^3/uL Baso # (Auto) 0.0 (0.0-0.1) 10^3/uL Absolute Nucleated RBC 0.00 x10^3/uL Nucleated RBC % 0.0 /100WBC VBG pH 7.545 H (7.31-7.41) Ionized Calcium 1.07 L (1.15-1.33) mmol/L Sodium 138 (135-145) mmol/L Potassium 3.6 (3.5-5.0) mmol/L Chloride 95 L (101-111) mmol/L Carbon Dioxide 35 H (21-32) mmol/L Anion Gap 8.0 (6-13) BUN 32 H (6-20) mg/dL Creatinine 0.9 (0.4-1.0) mg/dL Estimated GFR (MDRD) 60 L (>89) Glucose 126 H (70-100) mg/dL Calcium 9.0 (8.5-10.3) mg/dL Phosphorus 4.2 (2.5-4.6) mg/dL Magnesium 2.0 (1.7-2.8) mg/dL 03/19/23 03/19/23 03/19/23 Range/Units 18:19 12:53 09:53 WBC (4.8-10.8) x10^3/uL RBC (4.20-5.40) 10^6/uL Hgb (12.0-16.0) g/dL Hct (37.0-47.0) % MCV (81.0-99.0) fL MCH (27.0-31.0) pg MCHC (32.0-36.0) g/dL RDW (12.0-15.0) % Plt Count (130-450) 10^3/uL MPV (7.9-10.8) fL Neut # (Auto) (1.5-6.6) 10^3/uL Lymph # (Auto) (1.5-3.5) 10^3/uL [place] # (Auto) (0.0-1.0) 10^3/uL Eos # (Auto) (0.0-0.7) 10^3/uL Baso # (Auto) (0.0-0.1) 10^3/uL Absolute Nucleated RBC x10^3/uL Nucleated RBC % /100WBC VBG pH 7.457 H (7.31-7.41) Ionized Calcium 1.14 L (1.15-1.33) mmol/L Sodium (135-145) mmol/L Potassium 4.1 (3.5-5.0) mmol/L Chloride (101-111) mmol/L Carbon Dioxide (21-32) mmol/L Anion Gap (6-13) BUN (6-20) mg/dL Creatinine (0.4-1.0) mg/dL Estimated GFR (MDRD) (>89) Glucose (70-100) mg/dL Calcium (8.5-10.3) mg/dL Phosphorus (2.5-4.6) mg/dL Magnesium 2.0 (1.7-2.8) mg/dL Assessment/Plan - Problem List (1) Atrial fibrillation with RVR Impression: Patient presented with Afib-flutter with a HR of 150 and was started on IV diltiazem drip in ER, and has been in ICU on Dilt drip. She has also been con tinued on her Metoprolol Tartrate 25 mg daily, then increased to BID, plus ordered IV 5 mg Metoprolol as needed. Troponins were not concerning. TSH was normal. I changed her short acting Metoprolol Tartrate to Metoprolol Succinate and increased the dose yesterday But yesterday evening iv Digoxin 250 mcg had to be given because of a "soft" blood pressure. This helped her heart rate come down to under 100 for several hours. Today her heart rate is still over 100. Plan: Remain in the ICU due to her "soft" BP, to work on better HR control, and in case Dilt drip needs to be resumed. I will add Digoxin daily orally 125 mcg. Monitor her Dig level for the next few days Continue on telemetry Continue Eliquis for stroke prophylaxis in pt with Afib (2) Acute systolic heart failure Conclusion/Plan: Her last Echo was done here was in January 2023, just 2 mos ago this year, and showed an LVEF of 55%. Her newest Echo was done yesterday 03/19, and showed 4- chamber enlargement and severely depressed LVEF of <20%. This change in global LV function in such a short time is consistent with tachycardia-induced cardiomyopathy. This EF also is consistent with her BNP at admission of 1920. I added Spironolactone and an GARY inhibitor yesterday, after Echo result. She n eeds her meds staggered, because she has "soft" blood pressure. Plan: Will continue to work aggressively on heart rate control, using B-erick and new Digoxin Remain in the ICU due to her "soft" BP Continue Lasix, Spironolactone and GARY inhibitor. Cont to monitor I's and O's Will recheck the BNP on treatment (3) Bilateral pleural effusion Conclusion/Plan: Suspect secondary to the RVR atrial fibrillation causing congestive heart failure. The BNP was 1920. CXR done yesterday 03/19, showed minimal improvement in pleural effusions, R is > L She has been on Lasix 40 mg IV twice daily and I's and O's show (-) balance. But today her labs are showing prerenal azotemia. The Echocardiogram was done yesterday 03/19, which shows new systolic heart failure. Spironolactone was started Plan: Will monitor BNP Will change IV Lasix from BID to daily, continue the new Spirinolactone. She could need a thoracentesis, especially if she is should become hypoxic. (4) Cor Pulmonale Conclusion/Plan: Her last Echo was done here in January 2023, just 2 mos ago this year, and showed a normal RV size and function. Her newest Echo was done yesterday 03/19 and showed new RV enlargement and severely depressed RVEF. Plan: As in #2 (5) Dementia Conclusion/Plan: After her stroke 7 mos ago, she appears to have dysarthria but family noted that over the 2 days before admission, her mentation had worsened. We checked CTA head and neck and there was nothing acute. And an MRI of brain without contrast revealed no acute findings She passed a swallow eval and is eating. Patient's mental status has been clearing; she is alert, cooperative but not speaking. Plan: Given her atrial fibrillation we will continue Eliquis as stroke prophylaxis Will request PT and OT when HR <100 We have continued her home meds of Donepezil and Cymbalta (6) Liver lesion Conclusion/Plan: Incidental finding on CT of abdomen pelvis Plan: Per radiology recommendations recheck in several months (7) Prerenal azotemia Conclusion/Plan: BUN/creat ratio slightly worse today since yesterday on IV BID Lasix (all labs were reviewed). Plan: I will decrease Lasix IV from twice daily to daily Monitor BMP daily and avoid nephrotoxic agents Continue diuretics (8) Anticoagulation adequate Conclusion/Plan: Plan: Due to her atrial fibrillation, we will continue with her Eliquis anticoagulation
[2023-03-20] MEDS: MULTIVITAMIN W/MINERALS TABLET PO SCH (08:40)
[2023-03-20] MEDS: CALCIUM CARBONATE CHEW 500 MG TABLET PO SCH ×3 (08:40→20:49)
[2023-03-20] MEDS: DOCUSATE SODIUM 250 MG CAPSULE PO SCH (08:40)
[2023-03-20] MEDS: METOPROLOL SUCCINATE 50 MG TABLET PO SCH ×2 (08:40→20:49)
[2023-03-20] MEDS: DULoxetine 30 MG CAPSULE PO SCH (08:41)
[2023-03-20] MEDS: DIGOXIN 125 MCG TABLET PO SCH (08:53)
[2023-03-20] MEDS: POTASSIUM CHLORIDE 10 MEQ CAPSULE PO SCH (08:53)
[2023-03-20] MEDS: APIXABAN 2.5 MG TABLET PO SCH ×2 (08:53→20:48)
[2023-03-20] MEDS: DONEPEZIL 5 MG TABLET PO SCH (08:53)
[2023-03-20] MEDS: SODIUM CHLORIDE FLUSH 0.9% 10 ML SYRINGE IVP SCH ×3 (08:54→20:48)
[2023-03-20] MEDS: SENNA 8.6 MG TABLET PO SCH (10:04)
[2023-03-20] MEDS: FUROSEMIDE 40 MG/4 ML VIAL IVP SCH ×2 (11:56→20:47)
[2023-03-20] MEDS: ZINC OXIDE 20% OINT 30 GM TUBE TOP PRN (14:37)
[2023-03-20] MEDS: SPIRONOLACTONE 25 MG TABLET PO SCH (16:15)
[2023-03-20 16:23] LABS: CALCIUM, IONIZED 1.04 mmol/L (1.15-1.33); VBG PH 7.558 (7.31-7.41)
[2023-03-20] MEDS: POTASSIUM CHLORIDE 20 MEQ TABLET PO SCH ×2 (17:27→19:28)
[2023-03-20] MEDS: ATORVASTATIN 40 MG TABLET PO SCH (20:48)
[2023-03-20] MEDS: lisinopriL 5 MG TABLET PO SCH (20:48)
[2023-03-21] MEDS: CALCIUM CARBONATE CHEW 500 MG TABLET PO SCH (00:42)
[2023-03-21 05:15] LABS: BASOPHILS % (AUTO) 0.1 %; EOSINOPHILS # (AUTO) 0.2 10^3/uL (0.0-0.7); EOSINOPHILS % (AUTO) 1.3 %; HCT - HEMATOCRIT 50.2 % (37.0-47.0); HGB - HEMOGLOBIN 16.3 g/dL (12.0-16.0); LYMPHOCYTES # (AUTO) 2.1 10^3/uL (1.5-3.5); MEAN CORPUSCULAR HEMOGLOBIN 30.6 pg (27.0-31.0); MEAN CORPUSCULAR HGB CONC 32.5 g/dL (32.0-36.0); MEAN CORPUSCULAR VOLUME 94.4 fL (81.0-99.0); MEAN PLATELET VOLUME 10.5 fL (7.9-10.8); MONOCYTES # (AUTO) 1.3 10^3/uL (0.0-1.0); MONOCYTES % (AUTO) 8.8 %; NEUTROPHILS # (AUTO) 10.6 10^3/uL (1.5-6.6); NEUTROPHILS % (AUTO) 74.5 %; PLT - PLATELET COUNT 212 10^3/uL (130-450); RED BLOOD COUNT 5.32 10^6/uL (4.20-5.40); RED CELL DISTRIBUTION WIDTH 13.9 % (12.0-15.0); WHITE BLOOD COUNT 14.2 x10^3/uL (4.8-10.8)
[2023-03-21 05:23] LABS: CALCIUM, IONIZED 1.27 mmol/L (1.15-1.33); VBG PH 7.495 (7.31-7.41)
[2023-03-21 05:39] LABS: BUN - BLOOD UREA NITROGEN 31 mg/dL (6-20); CARBON DIOXIDE - CO2 32 mmol/L (21-32); CHLORIDE 90 mmol/L (101-111); CREATININE 0.9 mg/dL (0.4-1.0); DIGOXIN 0.3 ng/mL; GFR - MDRD 60 (>89); GLUCOSE 112 mg/dL (70-100); SODIUM 135 mmol/L (135-145)
[2023-03-21] MEDS: MULTIVITAMIN W/MINERALS TABLET PO SCH (08:15)
[2023-03-21] MEDS: POTASSIUM CHLORIDE 10 MEQ CAPSULE PO SCH (08:16)
[2023-03-21] MEDS: DIGOXIN 125 MCG TABLET PO SCH (08:16)
[2023-03-21] MEDS: DONEPEZIL 5 MG TABLET PO SCH (08:16)
[2023-03-21] MEDS: FUROSEMIDE 40 MG TABLET PO SCH (08:16)
[2023-03-21] MEDS: DULoxetine 30 MG CAPSULE PO SCH (08:16)
[2023-03-21] MEDS: METOPROLOL SUCCINATE 50 MG TABLET PO SCH ×2 (08:16→20:45)
[2023-03-21] MEDS: DOCUSATE SODIUM 250 MG CAPSULE PO SCH (08:17)
[2023-03-21] MEDS: polyethylene glycoL 3350 17 GM PACKET PO SCH (08:17)
[2023-03-21] MEDS: APIXABAN 2.5 MG TABLET PO SCH (08:17)
[2023-03-21] MEDS: SENNA 8.6 MG TABLET PO SCH (08:17)
[2023-03-21] MEDS: SODIUM CHLORIDE FLUSH 0.9% 10 ML SYRINGE IVP SCH ×2 (08:18→17:14)
[2023-03-21] MEDS: SPIRONOLACTONE 25 MG TABLET PO SCH (17:14)
--- NOTE | 2023-03-21 18:48 | PROVIDER PROGRESS NOTE ---
Assessment/Plan - Problem List (1) Atrial fibrillation with RVR Assessment/Plan: Patient presented with Afib-flutter with a HR of 150 and was started on IV diltiazem drip, admitted to ICU. He home B-erick doses were increased I changed her short acting Metoprolol Tartrate to Metoprolol Succinate and incr eased the dose further Due to soft BP, iv Digoxin 250 mcg then po Dig 125 mcg daily had to be started Troponins were not concerning. TSH was normal. Plan: Patient was moved out of the ICU to Med[facility] status on telemetry today. Continue her higher dose of Toprol, Dig and her Cardizem CD staggered dosing Monitor her Dig level for the next few days Continue on telemetry Continue Eliquis for stroke prophylaxis in pt with Afib (2) Weakness The patient needs to be cued in all her activities, she has dementia, she speaks minimally. She is also overall very weak Plan: If she can be rehabable, a SNF may be needed, but because of her stroke and impairment, we do not yet know if she will be able to participate adequately with PT and OT rehab. PT and OT to keep working with her. (3) Acute systolic heart failure Conclusion/Plan: In January 2023, her Echo showed an LVEF of 55%. Her newest Echo was done 03/19, and showed 4-chamber enlargement and severely depressed LVEF of <20%. This change in global LV function in such a short time is consistent with tachycardia-induced cardiomyopathy. This EF also is consistent with her BNP at admission of 1920. I added Spironolactone and an GARY inhibitor after the Echo result. B-erick has been increased. She needs her meds staggered, because she has "soft" blood pressure. Plan: Continue good heart rate control, using B-erick and new Digoxin Continue Lasix, Spironolactone and GARY inhibitor. Cont to monitor I's and O's Will recheck the BNP on treatment (4) Bilateral pleural effusion Conclusion/Plan: Suspect secondary to the RVR atrial fibrillation causing congestive heart failure. The BNP was 1920. CXR done yesterday 03/19, showed minimal improvement in pleural effusions, R is > L She has been on Lasix 40 mg IV twice daily and I's and O's show (-) balance. But today her labs are showing prerenal azotemia. The Echocardiogram was done yesterday 03/19, which shows new systolic heart failure. Spironolactone was started Plan: Will monitor BNP Will change IV Lasix to po LAsix, continue the new Spirinolactone. She has not been hypoxic therefore no thoracentesis has been ordered (5) Cor Pulmonale Conclusion/Plan: Her last Echo done in January 2023 showed a normal RV size and function. Her newest Echo was done 03/19 and showed new RV enlargement and severely depressed RVEF. Plan: As in #2 (6) Dementia Conclusion/Plan: After her stroke 7 mos ago, she appears to have dysarthria plus family noted that over the 2 days before admission, her mentation had worsened. We checked CTA head and neck and there was nothing acute. And an MRI of brain without contrast revealed no acute findings She passed a swallow eval and is eating. Patient's mental status has been clearing; she is alert, cooperative but not speaking and is very weak Plan: Given her atrial fibrillation we will continue Eliquis as stroke prophylaxis Cont to work with PT and OT We have continued her home meds of Donepezil and Cymbalta (7) Liver lesion Conclusion/Plan: Incidental finding on CT of abdomen pelvis Plan: Per radiology recommendations recheck in several months (8) Prerenal azotemia Conclusion/Plan: BUN/creat ratio slightly elevated, since on IV BID Lasix (all labs were reviewed). Plan: I will change daily Lasix IV to po today Monitor BMP daily and avoid nephrotoxic agents Continue diuretics (9) Anticoagulation adequate Conclusion/Plan: Plan: Due to her atrial fibrillation, we will continue with her Eliquis anticoagulation - Current Meds Current Meds: Current Medications Generic Name Dose Route Start Last Admin Trade Name Freq PRN Reason Stop Dose Admin Albuterol 2.5 mg 03/16/23 18:46 03/16/23 20:40 Albuterol Neb 2.5 Mg/3 Ml INH 2.5 mg RTQ4H PRN Administration Wheezing Atorvastatin Calcium 40 mg 03/16/23 21:00 03/20/23 20:48 Atorvastatin 40 Mg Tablet PO 40 mg QPM ALICIA Administration Digoxin 125 mcg 03/20/23 09:00 03/21/23 08:16 Digoxin 125 Mcg Tablet PO 125 mcg DAILY ALICIA Administration Docusate Sodium 250 - 500 mg 03/19/23 11:00 03/21/23 08:17 Docusate Sodium 250 Mg Capsule PO Not Given DAILY ALICIA Donepezil HCl 10 mg 03/17/23 09:00 03/21/23 08:16 Donepezil 5 Mg Tablet PO 10 mg DAILY ALICIA Administration Duloxetine HCl 60 mg 03/17/23 09:00 03/21/23 08:16 Duloxetine 30 Mg Capsule PO 60 mg DAILY ALICIA Administration Furosemide 60 mg 03/21/23 09:00 03/21/23 08:16 Furosemide 40 Mg Tablet PO 60 mg DAILY ALICIA Administration Lisinopril 2.5 mg 03/19/23 21:00 03/20/23 20:48 Lisinopril 5 Mg Tablet PO 2.5 mg QPM ALICIA Administration Metoprolol Succinate 75 mg 03/19/23 20:00 03/21/23 08:16 Metoprolol Succinate 50 Mg Tablet PO 75 mg 0800,1999 ALICIA Administration Multi-Ingredient Ointment 1 applic 03/20/23 12:59 03/20/23 14:37 Zinc Oxide 20% Oint 30 Gm Tube TOP 1 applic PRN PRN Administration Skin Care Multivitamins/Minerals 1 tab 03/19/23 12:00 03/21/23 08:15 Multivitamin W/Minerals Tablet PO 1 tab DAILYWM ALICIA Administration Polyethylene Glycol 17 gm 03/18/23 09:00 03/21/23 08:17 Polyethylene Glycol 3350 17 Gm Packet PO Not Given DAILY ALICIA Potassium Chloride 20 meq 03/20/23 08:00 03/21/23 08:16 Potassium Chloride 10 Meq Capsule PO 20 meq DAILYWM ALICIA Administration Senna 8.6 - 17.2 mg 03/19/23 11:00 03/21/23 08:17 Senna 8.6 Mg Tablet PO Not Given DAILY ALICIA Sodium Chloride 10 ml 03/16/23 17:00 03/21/23 17:14 Sodium Chloride Flush 0.9% 10 Ml Syringe IVP 10 ml 0100,0900,1700 ALICIA Administration Sodium Chloride 10 ml 03/16/23 16:04 03/19/23 05:34 Sodium Chloride Flush 0.9% 10 Ml Syringe IVP 10 ml PRN PRN Administration NEEDED PER PROVIDER ORDERS Spironolactone 25 mg 03/19/23 16:00 03/21/23 17:14 Spironolactone 25 Mg Tablet PO 25 mg 1600 ALICIA Administration - Lab Result Fish Bone Diagrams: 03/21/23 04:40 03/21/23 04:40 - Additional Planning My Orders: My Active Orders 03/21/23 09:00 Furosemide [Lasix] 60 mg PO DAILY 03/21/23 21:00 Apixaban [Eliquis] 5 mg PO BID 03/22/23 05:00 BMP - BASIC METABOLIC PANEL [CHEM] DAILYLAB CALCIUM, IONIZED ([facility]) [BG] DAILYLAB DIGOXIN [CHEM] DAILYLAB PHOSPHORUS [CHEM] DAILYLAB 03/23/23 05:00 BMP - BASIC METABOLIC PANEL [CHEM] DAILYLAB DIGOXIN [CHEM] DAILYLAB Subjective - Subjective Patient Reports: Resting Comfortably Nursing Reports: Other (She needs to be cued repeatedly, since she forgets what she is doing in the middle of doing it, per her RN.) Objective Vital Signs: Vital Signs - 24 hr 03/20/23 03/20/23 03/20/23 19:00 20:00 21:00 Temperature 36.5 C Heart Rate [ 102 H 90 104 H Monitoring electrodes] Respiratory 23 23 15 Rate Blood Pressure 108/72 105/64 106/90 H [Right Brachial artery] O2 Saturation 97 98 97 03/20/23 03/20/23 03/21/23 22:00 23:00 00:00 Temperature Heart Rate [ 100 99 108 H Monitoring electrodes] Respiratory 22 18 18 Rate Blood Pressure 118/81 H 103/67 101/79 [Right Brachial artery] O2 Saturation 98 95 95 03/21/23 03/21/23 03/21/23 01:00 02:00 03:00 Temperature Heart Rate [ 94 93 96 Monitoring electrodes] Respiratory 18 21 14 Rate Blood Pressure 111/97 H 111/81 H 97/50 L [Right Brachial artery] O2 Saturation 95 92 97 03/21/23 03/21/23 03/21/23 04:00 05:00 06:00 Temperature 36.7 C Heart Rate [ 91 99 97 Monitoring electrodes] Respiratory 22 21 17 Rate Blood Pressure 125/70 105/69 106/66 [Right Brachial artery] O2 Saturation 96 98 97 03/21/23 03/21/23 03/21/23 07:00 08:28 13:00 Temperature 36.6 C Heart Rate [ 95 96 93 Monitoring electrodes] Respiratory 14 18 19 Rate Blood Pressure 101/79 112/82 H 108/93 H [Right Brachial artery] O2 Saturation 96 96 96 03/21/23 17:03 Temperature Heart Rate [ 92 Monitoring electrodes] Respiratory 20 Rate Blood Pressure 100/65 [Right Brachial artery] O2 Saturation 98 Oxygen O2 Source Room air I&O (Last 24 Hrs): Intake and Output Totals x24h 03/19/23 03/20/23 03/21/23 23:59 23:59 23:59 Intake Total 1680 850 980 Output Total 3085 1265 600 Balance -1405 -415 380 General: Other (Asleep, breathing room air) HEENT: Mucous membr. moist/pink Neck: Supple, No JVD Neuro: Alert, Other (Minimally communicative. Poor memory) Cardiovascular: No murmurs Respiratory: No respiratory distress, Breath sounds nml Abdomen: Soft, No tenderness Extremities: No clubbing, No edema, No tenderness/swelling - Results Results: Laboratory Results WBC 14.2 x10^3/uL (4.8-10.8) H 03/21/23 04:40 RBC 5.32 10^6/uL (4.20-5.40) 03/21/23 04:40 Hgb 16.3 g/dL (12.0-16.0) H 03/21/23 04:40 Hct 50.2 % (37.0-47.0) H 03/21/23 04:40 MCV 94.4 fL (81.0-99.0) 03/21/23 04:40 MCH 30.6 pg (27.0-31.0) 03/21/23 04:40 MCHC 32.5 g/dL (32.0-36.0) 03/21/23 04:40 RDW 13.9 % (12.0-15.0) 03/21/23 04:40 Plt Count 212 10^3/uL (130-450) 03/21/23 04:40 MPV 10.5 fL (7.9-10.8) 03/21/23 04:40 Neut # (Auto) 10.6 10^3/uL (1.5-6.6) H 03/21/23 04:40 Lymph # (Auto) 2.1 10^3/uL (1.5-3.5) 03/21/23 04:40 [place] # (Auto) 1.3 10^3/uL (0.0-1.0) H 03/21/23 04:40 Eos # (Auto) 0.2 10^3/uL (0.0-0.7) 03/21/23 04:40 Baso # (Auto) 0.0 10^3/uL (0.0-0.1) 03/21/23 04:40 Absolute Nucleated RBC 0.00 x10^3/uL 03/21/23 04:40 Nucleated RBC % 0.0 /100WBC 03/21/23 04:40 VBG pH 7.495 (7.31-7.41) H 03/21/23 04:40 VBG pCO2 28.7 mmHg (41-51) L 03/16/23 13:35 VBG pO2 65.8 mmHg (25-47) H 03/16/23 13:35 VBG HCO3 19.4 mmol/L (23-28) L 03/16/23 13:35 VBG Total CO2 20.2 mmol/L (24-29) L 03/16/23 13:35 VBG O2 Saturation 92.5 % (60-80) H 03/16/23 13:35 VBG Base Excess -3.2 mmol/L (-2 - +2) L 03/16/23 13:35 Ionized Calcium 1.27 mmol/L (1.15-1.33) 03/21/23 04:40 Sodium 135 mmol/L (135-145) 03/21/23 04:40 Potassium 4.0 mmol/L (3.5-5.0) 03/21/23 04:40 Chloride 90 mmol/L (101-111) L 03/21/23 04:40 Carbon Dioxide 32 mmol/L (21-32) 03/21/23 04:40 Anion Gap 13.0 (6-13) 03/21/23 04:40 BUN 31 mg/dL (6-20) H 03/21/23 04:40 Creatinine 0.9 mg/dL (0.4-1.0) 03/21/23 04:40 Estimated GFR (MDRD) 60 (>89) L 03/21/23 04:40 Glucose 112 mg/dL (70-100) H 03/21/23 04:40 POC Whole Bld Glucose 116 mg/dL (70 - 100) H 03/17/23 12:06 Lactic Acid 2.0 mmol/L (0.5-2.2) 03/16/23 13:35 Calcium 11.0 mg/dL (8.5-10.3) H 03/21/23 04:40 Phosphorus 5.0 mg/dL (2.5-4.6) H 03/21/23 04:40 Magnesium 2.0 mg/dL (1.7-2.8) 03/21/23 04:40 Total Bilirubin 2.2 mg/dL (0.2-1.0) H 03/16/23 13:35 AST 153 IU/L (10-42) H 03/16/23 13:35 ALT 151 IU/L (10-60) H 03/16/23 13:35 Alkaline Phosphatase 113 IU/L (42-121) 03/16/23 13:35 Troponin I High Sens 25.6 ng/L (2.3-14.8) H* 03/19/23 04:43 B-Natriuretic Peptide 398 pg/mL (5-100) H 03/21/23 04:40 Total Protein 6.1 g/dL (6.7-8.2) L 03/16/23 13:35 Albumin 3.6 g/dL (3.2-5.5) 03/16/23 13:35 Globulin 2.5 g/dL (2.1-4.2) 03/16/23 13:35 Albumin/Globulin Ratio 1.4 (1.0-2.2) 03/16/23 13:35 TSH 2.10 uIU/mL (0.34-5.60) 03/16/23 13:35 Urine Color YELLOW 03/16/23 14:09 Urine Clarity HAZY (CLEAR) 03/16/23 14:09 Urine pH 5.0 PH (5.0-7.5) 03/16/23 14:09 Ur Specific [place] >=1.030 (1.002-1.030) H 03/16/23 14:09 Urine Protein >=300 mg/dL (NEGATIVE) H 03/16/23 14:09 Urine Glucose (UA) NEGATIVE mg/dL (NEGATIVE) 03/16/23 14:09 Urine Ketones NEGATIVE mg/dL (NEGATIVE) 03/16/23 14:09 Urine Occult Blood SMALL (NEGATIVE) H 03/16/23 14:09 Urine Nitrite NEGATIVE (NEGATIVE) 03/16/23 14:09 Urine Bilirubin NEGATIVE (NEGATIVE) 03/16/23 14:09 Urine Urobilinogen 1 (NORMAL) E.U./dL (NORMAL) 03/16/23 14:09 Ur Leukocyte Esterase NEGATIVE (NEGATIVE) 03/16/23 14:09 Urine RBC 6-10 /HPF (0-5) H 03/16/23 14:09 Urine WBC 0-3 /HPF (0-5) 03/16/23 14:09 Ur Squamous Epith Cells FEW Squamous (<= Few) 03/16/23 14:09 Amorphous Sediment Few /LPF 03/16/23 14:09 Urine Bacteria Few /HPF (None Seen) 03/16/23 14:09 Ur Microscopic Review INDICATED 03/16/23 14:09 Urine Culture Comments NOT INDICATED 03/16/23 14:09 Nasal Adenovirus (PCR) NOT DETECTED 03/16/23 13:45 Nasal B. parapertussis DNA (PCR) NOT DETECTED 03/16/23 13:45 Nasal Coronavir 229E PCR NOT DETECTED 03/16/23 13:45 Nasal Coronavir HKU1 PCR NOT DETECTED 03/16/23 13:45 Nasal Coronavir NL63 PCR NOT DETECTED 03/16/23 13:45 Nasal Coronavir OC43 PCR NOT DETECTED 03/16/23 13:45 Nasal Enterovir/Rhinovir PCR NOT DETECTED 03/16/23 13:45 Nasal Influenza B PCR NOT DETECTED 03/16/23 13:45 Nasal Influenza A PCR NOT DETECTED 03/16/23 13:45 Nasal Parainfluen 1 PCR NOT DETECTED 03/16/23 13:45 Nasal Parainfluen 2 PCR NOT DETECTED 03/16/23 13:45 Nasal Parainfluen 3 PCR NOT DETECTED 03/16/23 13:45 Nasal Parainfluen 4 PCR NOT DETECTED 03/16/23 13:45 Nasal RSV (PCR) NOT DETECTED 03/16/23 13:45 Nasal Screen MRSA (PCR) NEGATIVE (NEGATIVE) 03/16/23 17:17 Nasal B.pertussis DNA PCR NOT DETECTED 03/16/23 13:45 Nasal C.pneumoniae (PCR) NOT DETECTED 03/16/23 13:45 Corey Human Metapneumo PCR NOT DETECTED 03/16/23 13:45 Nasal M.pneumoniae (PCR) NOT DETECTED 03/16/23 13:45 Nasal SARS-CoV-2 (PCR) NOT DETECTED 03/16/23 13:45 Last Dose Date 03/20/23 03/21/23 04:40 Last Dose Time 0853 03/21/23 04:40 Digoxin 0.3 ng/mL 03/21/23 04:40 - Procedures Procedures: Procedures REPLACEMENT OF RIGHT LENS WITH SYNTH SUB, PERC APPROACH (08/23/16)
[2023-03-21] MEDS: APIXABAN 5 MG TABLET PO SCH (20:45)
[2023-03-21] MEDS: lisinopriL 5 MG TABLET PO SCH (20:45)
[2023-03-21] MEDS: ATORVASTATIN 40 MG TABLET PO SCH (20:45)
[2023-03-22] MEDS: SODIUM CHLORIDE FLUSH 0.9% 10 ML SYRINGE IVP SCH ×3 (01:35→16:32)
[2023-03-22 08:11] LABS: CALCIUM, IONIZED 1.12 mmol/L (1.15-1.33); VBG PH 7.419 (7.31-7.41)
[2023-03-22 08:25] LABS: BUN - BLOOD UREA NITROGEN 33 mg/dL (6-20); CALCIUM 9.5 mg/dL (8.5-10.3); CARBON DIOXIDE - CO2 34 mmol/L (21-32); CHLORIDE 89 mmol/L (101-111); DIGOXIN 0.7 ng/mL; GFR - MDRD 53 (>89); GLUCOSE 101 mg/dL (70-100); PHOSPHORUS 4.5 mg/dL (2.5-4.6); POTASSIUM 4.2 mmol/L (3.5-5.0); SODIUM 134 mmol/L (135-145)
[2023-03-22] MEDS: DOCUSATE SODIUM 250 MG CAPSULE PO SCH (08:34)
[2023-03-22] MEDS: MULTIVITAMIN W/MINERALS TABLET PO SCH (08:34)
[2023-03-22] MEDS: POTASSIUM CHLORIDE 10 MEQ CAPSULE PO SCH (08:35)
[2023-03-22] MEDS: DIGOXIN 125 MCG TABLET PO SCH (08:35)
[2023-03-22] MEDS: DULoxetine 30 MG CAPSULE PO SCH (08:35)
[2023-03-22] MEDS: DONEPEZIL 5 MG TABLET PO SCH (08:35)
[2023-03-22] MEDS: APIXABAN 5 MG TABLET PO SCH ×2 (08:35→20:39)
[2023-03-22] MEDS: FUROSEMIDE 40 MG TABLET PO SCH (08:36)
[2023-03-22] MEDS: polyethylene glycoL 3350 17 GM PACKET PO SCH (08:36)
[2023-03-22] MEDS: SENNA 8.6 MG TABLET PO SCH (08:36)
[2023-03-22] MEDS: METOPROLOL SUCCINATE 50 MG TABLET PO SCH ×2 (08:47→19:56)
--- NOTE | 2023-03-22 13:36 | PROVIDER PROGRESS NOTE ---
Assessment/Plan - Problem List (1) Weakness Assessment/Plan: The patient needs to be cued in all her activities, she has dementia, she speaks minimally. She forgets how to feed herself. She is also overall very weak. She now needs care with toileting Today when the visited, I updated him on her status. I also advised that she very likely will need more caregiving help when she returns back to [facility] going forward. Plan: We will order that patient needs to be fed If she can be rehabable, a SNF may be needed, but because of her stroke and impairment, we do not yet know if she will be able to participate adequately with PT and OT rehab. PT and OT to keep working with her. was updated at bedside today, and advised about her needing more caregiving. (2) Afib Patient presented with Afib-flutter with a HR of 150 and was started on IV diltiazem drip, admitted to ICU. He home B-erick doses were increased I changed her short acting Metoprolol Tartrate to Metoprolol Succinate and increased the dose further Due to soft BP, iv Digoxin 250 mcg then po Dig 125 mcg daily had to be started Troponins were not concerning. TSH was normal. Patient was moved out of the ICU to [facility] status on telemetry yesterday Plan: Continue her higher dose of Toprol, Dig and her Cardizem CD staggered dosing which is keeping HR controlled <100 Monitor her Dig level for the next few days Continue on telemetry Continue Eliquis for stroke prophylaxis in pt with Afib (3) Acute systolic heart failure Conclusion/Plan: In January 2023, her Echo showed an LVEF of 55%. Her newest Echo was done 03/19, and showed 4-chamber enlargement and severely depressed LVEF of <20%. This change in global LV function in such a short time is consistent with tachycardia-induced cardiomyopathy. This EF also is consistent with her BNP at admission of 0. I added Spironolactone and an GARY inhibitor after the Echo result. B-erick has been increased. She needs her meds staggered, because she has "soft" blood pressure. Plan: Continue good heart rate control, using B-erick and new Digoxin Continue Lasix, Spironolactone and GARY inhibitor. Cont to monitor I's and O's Will recheck the BNP on treatment (4) Bilateral pleural effusion Conclusion/Plan: Suspect secondary to the RVR atrial fibrillation causing congestive heart failure. The BNP was 1920. CXR done 03/19, showed minimal improvement in pleural effusions, R is > L She has been on Lasix 40 mg IV twice daily and I's and O's show (-) balance. But today her labs are showing prerenal azotemia. The Echocardiogram was done 03/19, which shows new systolic heart failure. Spironolactone was started Plan: Will monitor BNP Will change IV Lasix to po LAsix, continue the new Spirinolactone. She has not been hypoxic therefore no thoracentesis has been ordered (5) Cor Pulmonale Conclusion/Plan: Her last Echo done in January 2023 showed a normal RV size and function. Her newest Echo was done 03/19 and showed new RV enlargement and severely depressed RVEF. Plan: As in #2 (6) Dementia Conclusion/Plan: After her stroke several mos ago, she appears to have dysarthria plus family noted that over the 2 days before admission, her mentation had worsened. We checked CTA head and neck and there was nothing acute. And an MRI of brain without contrast revealed no acute findings She passed a swallow eval and is eating. Patient's mental status has been clearing; she is alert, cooperative but not speaking and is very weak Plan: Given her atrial fibrillation we will continue Eliquis as stroke prophylaxis Cont to work with PT and OT We have continued her home meds of Donepezil and Cymbalta (7) Liver lesion Conclusion/Plan: Incidental finding on CT of abdomen pelvis Plan: Per radiology recommendations recheck in several months (8) Prerenal azotemia Conclusion/Plan: BUN/creat ratio wasslightly elevated, since on IV BID Lasix (all labs were reviewed). IV Lasix was changed to p.o. Lasix Plan: Cont po Lasix now Monitor BMP daily and avoid nephrotoxic agents Continue diuretics (9) Anticoagulation adequate Conclusion/Plan: Plan: Due to her atrial fibrillation, we will continue with her Eliquis anticoagulation - Current Meds Current Meds: Current Medications Generic Name Dose Route Start Last Admin Trade Name Freq PRN Reason Stop Dose Admin Albuterol 2.5 mg 03/16/23 18:46 03/16/23 20:40 Albuterol Neb 2.5 Mg/3 Ml INH 2.5 mg RTQ4H PRN Administration Wheezing Apixaban 5 mg 03/21/23 21:00 03/22/23 08:35 Apixaban 5 Mg Tablet PO 5 mg BID ALICIA Administration Atorvastatin Calcium 40 mg 03/16/23 21:00 03/21/23 20:45 Atorvastatin 40 Mg Tablet PO 40 mg QPM ALICIA Administration Digoxin 125 mcg 03/20/23 09:00 03/22/23 08:35 Digoxin 125 Mcg Tablet PO 125 mcg DAILY ALICIA Administration Docusate Sodium 250 - 500 mg 03/19/23 11:00 03/22/23 08:34 Docusate Sodium 250 Mg Capsule PO 250 mg DAILY ALICIA Administration Donepezil HCl 10 mg 03/17/23 09:00 03/22/23 08:35 Donepezil 5 Mg Tablet PO 10 mg DAILY ALICIA Administration Duloxetine HCl 60 mg 03/17/23 09:00 03/22/23 08:35 Duloxetine 30 Mg Capsule PO 60 mg DAILY ALICIA Administration Furosemide 60 mg 03/21/23 09:00 03/22/23 08:36 Furosemide 40 Mg Tablet PO 60 mg DAILY ALICIA Administration Lisinopril 2.5 mg 03/19/23 21:00 03/21/23 20:45 Lisinopril 5 Mg Tablet PO 2.5 mg QPM ALICIA Administration Metoprolol Succinate 75 mg 03/19/23 20:00 03/22/23 08:47 Metoprolol Succinate 50 Mg Tablet PO 75 mg 08,2000 ALICIA Administration Multi-Ingredient Ointment 1 applic 03/20/23 12:59 03/20/23 14:37 Zinc Oxide 20% Oint 30 Gm Tube TOP 1 applic PRN PRN Administration Skin Care Multivitamins/Minerals 1 tab 03/19/23 12:00 03/22/23 08:34 Multivitamin W/Minerals Tablet PO 1 tab DAILYWM ALICIA Administration Polyethylene Glycol 17 gm 03/18/23 09:00 03/22/23 08:36 Polyethylene Glycol 3350 17 Gm Packet PO Not Given DAILY ALICIA Potassium Chloride 20 meq 03/20/23 08:00 03/22/23 08:35 Potassium Chloride 10 Meq Capsule PO 20 meq DAILYWM AILCIA Administration Senna 8.6 - 17.2 mg 03/19/23 11:00 03/22/23 08:36 Senna 8.6 Mg Tablet PO Not Given DAILY ALICIA Sodium Chloride 10 ml 03/16/23 17:00 03/22/23 08:36 Sodium Chloride Flush 0.9% 10 Ml Syringe IVP 10 ml 0100,0900,1700 ALICIA Administration Sodium Chloride 10 ml 03/16/23 16:04 03/19/23 05:34 Sodium Chloride Flush 0.9% 10 Ml Syringe IVP 10 ml PRN PRN Administration NEEDED PER PROVIDER ORDERS Spironolactone 25 mg 03/19/23 16:00 03/21/23 17:14 Spironolactone 25 Mg Tablet PO 25 mg 1600 ALICIA Administration - Lab Result Fish Bone Diagrams: 03/21/23 04:40 03/22/23 08:03 - Additional Planning My Orders: My Active Orders 03/21/23 21:00 Apixaban [Eliquis] 5 mg PO BID 03/22/23 10:27 Miscellaenous Nursing Order [RC] QSHIFT 03/23/23 05:00 BMP - BASIC METABOLIC PANEL [CHEM] DAILYLAB DIGOXIN [CHEM] DAILYLAB Subjective - Subjective Patient Reports: Resting Comfortably Nursing Reports: Other (She needs to be fed, toileted and wiped. She is able to be taken to the commode and toilet. She remains minimally communicative) Objective Vital Signs: Vital Signs - 24 hr 03/21/23 03/21/23 03/21/23 17:03 20:15 23:30 Temperature 36.0 C L 36.2 C L 36.6 C Heart Rate [ 95 89 Brachial] Heart Rate [ 92 Monitoring electrodes] Respiratory 20 20 20 Rate Blood Pressure 100/65 101/77 105/65 [Right Brachial artery] O2 Saturation 98 97 94 03/22/23 03/22/23 03/22/23 05:52 07:37 12:36 Temperature 36.1 C L 36.2 C L 36.3 C L Heart Rate [ 89 90 91 Brachial] Heart Rate [ Monitoring electrodes] Respiratory 20 20 20 Rate Blood Pressure 101/71 103/76 109/73 [Right Brachial artery] O2 Saturation 96 93 94 Oxygen O2 Source Room air I&O (Last 24 Hrs): Intake and Output Totals x24h 03/20/23 03/21/23 03/22/23 23:59 23:59 23:59 Intake Total 850 1330 490 Output Total 1265 600 175 Balance -415 730 315 General: Alert, No acute distress HEENT: Mucous membr. moist/pink Neck: Supple Neuro: Alert, Disoriented, Other (Minimally communicative) Cardiovascular: No murmurs Respiratory: No respiratory distress, Breath sounds nml Abdomen: Normal bowel sounds, Soft Extremities: No clubbing, No edema, No tenderness/swelling - Results Results: Laboratory Results WBC 14.2 x10^3/uL (4.8-10.8) H 03/21/23 04:40 RBC 5.32 10^6/uL (4.20-5.40) 03/21/23 04:40 Hgb 16.3 g/dL (12.0-16.0) H 03/21/23 04:40 Hct 50.2 % (37.0-47.0) H 03/21/23 04:40 MCV 94.4 fL (81.0-99.0) 03/21/23 04:40 MCH 30.6 pg (27.0-31.0) 03/21/23 04:40 MCHC 32.5 g/dL (32.0-36.0) 03/21/23 04:40 RDW 13.9 % (12.0-15.0) 03/21/23 04:40 Plt Count 212 10^3/uL (130-450) 03/21/23 04:40 MPV 10.5 fL (7.9-10.8) 03/21/23 04:40 Neut # (Auto) 10.6 10^3/uL (1.5-6.6) H 03/21/23 04:40 Lymph # (Auto) 2.1 10^3/uL (1.5-3.5) 03/21/23 04:40 [place] # (Auto) 1.3 10^3/uL (0.0-1.0) H 03/21/23 04:40 Eos # (Auto) 0.2 10^3/uL (0.0-0.7) 03/21/23 04:40 Baso # (Auto) 0.0 10^3/uL (0.0-0.1) 03/21/23 04:40 Absolute Nucleated RBC 0.00 x10^3/uL 03/21/23 04:40 Nucleated RBC % 0.0 /100WBC 03/21/23 04:40 VBG pH 7.419 (7.31-7.41) H 03/22/23 08:03 VBG pCO2 28.7 mmHg (41-51) L 03/16/23 13:35 VBG pO2 65.8 mmHg (25-47) H 03/16/23 13:35 VBG HCO3 19.4 mmol/L (23-28) L 03/16/23 13:35 VBG Total CO2 20.2 mmol/L (24-29) L 03/16/23 13:35 VBG O2 Saturation 92.5 % (60-80) H 03/16/23 13:35 VBG Base Excess -3.2 mmol/L (-2 - +2) L 03/16/23 13:35 Ionized Calcium 1.12 mmol/L (1.15-1.33) L 03/22/23 08:03 Sodium 134 mmol/L (135-145) L 03/22/23 08:03 Potassium 4.2 mmol/L (3.5-5.0) 03/22/23 08:03 Chloride 89 mmol/L (101-111) L 03/22/23 08:03 Carbon Dioxide 34 mmol/L (21-32) H 03/22/23 08:03 Anion Gap 11.0 (6-13) 03/22/23 08:03 BUN 33 mg/dL (6-20) H 03/22/23 08:03 Creatinine 1.0 mg/dL (0.4-1.0) 03/22/23 08:03 Estimated GFR (MDRD) 53 (>89) L 03/22/23 08:03 Glucose 101 mg/dL (70-100) H 03/22/23 08:03 POC Whole Bld Glucose 116 mg/dL (70 - 100) H 03/17/23 12:06 Lactic Acid 2.0 mmol/L (0.5-2.2) 03/16/23 13:35 Calcium 9.5 mg/dL (8.5-10.3) 03/22/23 08:03 Phosphorus 4.5 mg/dL (2.5-4.6) 03/22/23 08:03 Magnesium 2.0 mg/dL (1.7-2.8) 03/21/23 04:40 Total Bilirubin 2.2 mg/dL (0.2-1.0) H 03/16/23 13:35 AST 153 IU/L (10-42) H 03/16/23 13:35 ALT 151 IU/L (10-60) H 03/16/23 13:35 Alkaline Phosphatase 113 IU/L (42-121) 03/16/23 13:35 Troponin I High Sens 25.6 ng/L (2.3-14.8) H* 03/19/23 04:43 B-Natriuretic Peptide 398 pg/mL (5-100) H 03/21/23 04:40 Total Protein 6.1 g/dL (6.7-8.2) L 03/16/23 13:35 Albumin 3.6 g/dL (3.2-5.5) 03/16/23 13:35 Globulin 2.5 g/dL (2.1-4.2) 03/16/23 13:35 Albumin/Globulin Ratio 1.4 (1.0-2.2) 03/16/23 13:35 TSH 2.10 uIU/mL (0.34-5.60) 03/16/23 13:35 Urine Color YELLOW 03/16/23 14:09 Urine Clarity HAZY (CLEAR) 03/16/23 14:09 Urine pH 5.0 PH (5.0-7.5) 03/16/23 14:09 Ur Specific Anderson >=1.030 (1.002-1.030) H 03/16/23 14:09 Urine Protein >=300 mg/dL (NEGATIVE) H 03/16/23 14:09 Urine Glucose (UA) NEGATIVE mg/dL (NEGATIVE) 03/16/23 14:09 Urine Ketones NEGATIVE mg/dL (NEGATIVE) 03/16/23 14:09 Urine Occult Blood SMALL (NEGATIVE) H 03/16/23 14:09 Urine Nitrite NEGATIVE (NEGATIVE) 03/16/23 14:09 Urine Bilirubin NEGATIVE (NEGATIVE) 03/16/23 14:09 Urine Urobilinogen 1 (NORMAL) E.U./dL (NORMAL) 03/16/23 14:09 Ur Leukocyte Esterase NEGATIVE (NEGATIVE) 03/16/23 14:09 Urine RBC 6-10 /HPF (0-5) H 03/16/23 14:09 Urine WBC 0-3 /HPF (0-5) 03/16/23 14:09 Ur Squamous Epith Cells FEW Squamous (<= Few) 03/16/23 14:09 Amorphous Sediment Few /LPF 03/16/23 14:09 Urine Bacteria Few /HPF (None Seen) 03/16/23 14:09 Ur Microscopic Review INDICATED 03/16/23 14:09 Urine Culture Comments NOT INDICATED 03/16/23 14:09 Nasal Adenovirus (PCR) NOT DETECTED 03/16/23 13:45 Nasal B. parapertussis DNA (PCR) NOT DETECTED 03/16/23 13:45 Nasal Coronavir 229E PCR NOT DETECTED 03/16/23 13:45 Nasal Coronavir HKU1 PCR NOT DETECTED 03/16/23 13:45 Nasal Coronavir NL63 PCR NOT DETECTED 03/16/23 13:45 Nasal Coronavir OC43 PCR NOT DETECTED 03/16/23 13:45 Nasal Enterovir/Rhinovir PCR NOT DETECTED 03/16/23 13:45 Nasal Influenza B PCR NOT DETECTED 03/16/23 13:45 Nasal Influenza A PCR NOT DETECTED 03/16/23 13:45 Nasal Parainfluen 1 PCR NOT DETECTED 03/16/23 13:45 Nasal Parainfluen 2 PCR NOT DETECTED 03/16/23 13:45 Nasal Parainfluen 3 PCR NOT DETECTED 03/16/23 13:45 Nasal Parainfluen 4 PCR NOT DETECTED 03/16/23 13:45 Nasal RSV (PCR) NOT DETECTED 03/16/23 13:45 Nasal Screen MRSA (PCR) NEGATIVE (NEGATIVE) 03/16/23 17:17 Nasal B.pertussis DNA PCR NOT DETECTED 03/16/23 13:45 Nasal C.pneumoniae (PCR) NOT DETECTED 03/16/23 13:45 Corey Human Metapneumo PCR NOT DETECTED 03/16/23 13:45 Nasal M.pneumoniae (PCR) NOT DETECTED 03/16/23 13:45 Nasal SARS-CoV-2 (PCR) NOT DETECTED 03/16/23 13:45 Last Dose Date Not Reportable 03/22/23 08:03 Last Dose Time Not Reportable 03/22/23 08:03 Digoxin 0.7 ng/mL 03/22/23 08:03 - Procedures Procedures: Procedures REPLACEMENT OF RIGHT LENS WITH SYNTH SUB, PERC APPROACH (08/23/16)
[2023-03-22] MEDS: SPIRONOLACTONE 25 MG TABLET PO SCH (16:32)
[2023-03-22] MEDS: CHOLECALCIFEROL 25 MCG TABLET PO SCH (16:32)
[2023-03-22] MEDS: ATORVASTATIN 40 MG TABLET PO SCH (20:39)
[2023-03-22] MEDS: lisinopriL 5 MG TABLET PO SCH (20:40)
[2023-03-23] MEDS: SODIUM CHLORIDE FLUSH 0.9% 10 ML SYRINGE IVP SCH ×3 (01:26→17:05)
[2023-03-23 05:22] LABS: BUN - BLOOD UREA NITROGEN 25 mg/dL (6-20); CALCIUM 9.4 mg/dL (8.5-10.3); CARBON DIOXIDE - CO2 31 mmol/L (21-32); CHLORIDE 90 mmol/L (101-111); CREATININE 0.9 mg/dL (0.4-1.0); DIGOXIN 0.6 ng/mL; GFR - MDRD 60 (>89); GLUCOSE 94 mg/dL (70-100); POTASSIUM 4.3 mmol/L (3.5-5.0); SODIUM 134 mmol/L (135-145)
[2023-03-23] MEDS: DOCUSATE SODIUM 250 MG CAPSULE PO SCH ×2 (08:14→08:15)
[2023-03-23] MEDS: APIXABAN 5 MG TABLET PO SCH ×2 (08:14→20:33)
[2023-03-23] MEDS: FUROSEMIDE 40 MG TABLET PO SCH (08:14)
[2023-03-23] MEDS: MULTIVITAMIN W/MINERALS TABLET PO SCH (08:14)
[2023-03-23] MEDS: METOPROLOL SUCCINATE 50 MG TABLET PO SCH ×2 (08:15→20:32)
[2023-03-23] MEDS: SENNA 8.6 MG TABLET PO SCH (08:15)
[2023-03-23] MEDS: POTASSIUM CHLORIDE 10 MEQ CAPSULE PO SCH (08:16)
[2023-03-23] MEDS: DULoxetine 30 MG CAPSULE PO SCH (08:17)
[2023-03-23] MEDS: DONEPEZIL 5 MG TABLET PO SCH (08:17)
[2023-03-23] MEDS: CHOLECALCIFEROL 25 MCG TABLET PO SCH (08:17)
[2023-03-23] MEDS: polyethylene glycoL 3350 17 GM PACKET PO SCH (08:18)
[2023-03-23] MEDS: DIGOXIN 125 MCG TABLET PO SCH (08:48)
--- NOTE | 2023-03-23 12:37 | PROVIDER PROGRESS NOTE ---
Assessment/Plan - Problem List (1) Weakness Assessment/Plan: The patient needs to be cued in all her activities, she has dementia since her stroke, she speaks minimally. She forgets that she is feeding herself. She is also overall very weak. She now needs care with toileting. She is able to work with PT and OT. On 03/22 yesterday I updated the on her status. I also advised that she very likely will need more caregiving help when she returns back to [place] going forward. Plan: I ordered that patient needs to be fed If she can be rehabable, a SNF may be needed, but because of her stroke and impairment, we do not yet know if she will be able to participate adequately with PT and OT rehab. PT and OT to keep working with her. (2) Afib Patient presented with Afib-flutter with a HR of 150 and was started on IV diltiazem drip, admitted to ICU. Troponins were not concerning. TSH was normal. She needed many days of adjusting her metoprolol to succinate, and moving diltiazem to midday to stagger her meds, and started on new Digoxin for rate control. Dig levels have been 0.3, 0.7 and 0.6 today (all labs were reviewed) Plan: Continue her higher dose of Toprol, Dig and her Cardizem CD staggered dosing which is keeping HR controlled <100 Monitor her Dig level for the next few days Will stop telemetry Continue Eliquis for stroke prophylaxis in pt with Afib (3) Acute systolic heart failure Conclusion/Plan: In January 2023, her Echo showed EF of 55%. Her Echo done 03/19 showed 4-chamber enlargement and severely depressed LVEF of <20%. This change in global LV function in such a short time is consistent with tachycardia-induced cardiomyopathy. This EF also is consistent with her BNP at admission of 1920. I added Spironolactone and an GARY inhibitor after the Echo result. B-erick has been increased. She needs her meds staggered, because she has "soft" blood pressure. Plan: Continue good heart rate control, using B-erick, Cardizem and new Digoxin Continue Lasix, Spironolactone and GARY inhibitor. Cont to monitor I's and O's Will recheck the BNP on treatment (4) Bilateral pleural effusion Conclusion/Plan: Suspect secondary to the RVR atrial fibrillation causing congestive heart failure. The BNP was 1920. CXR done 03/19, showed minimal improvement in pleural effusions, R is > L She has been on Lasix 40 mg IV twice daily and I's and O's show (-) balance. But today her labs are showing prerenal azotemia. The Echocardiogram was done 03/19, which shows new systolic heart failure. Spironolactone was started Plan: Continue Lasix and Spironolactone Will monitor BNP intermittently She has not been hypoxic therefore no thoracentesis has been ordered (5) Cor Pulmonale Conclusion/Plan: Her last Echo done in January 2023 showed a normal RV size and function. Her newest Echo was done 03/19 and showed new RV enlargement and severely depressed RVEF. Plan: As in #3 (6) Dementia Conclusion/Plan: After her stroke several mos ago, she appears to have dysarthria plus family noted that over the 2 days before admission, her mentation had worsened. We checked CTA head and neck and there was nothing acute. And an MRI of brain without contrast revealed no acute findings She passed a swallow eval and is eating. Patient's mental status has been clearing; she is alert, cooperative but not speaking and is very weak Plan: Continue Eliquis as stroke prophylaxis since she has chronic Afib Cont to work with PT and OT We have continued her home meds of Donepezil and Cymbalta (7) Liver lesion Conclusion/Plan: Incidental finding on CT of abdomen pelvis Plan: Per radiology recommendations recheck in several months (8) Prerenal azotemia Conclusion/Plan: BUN/creat ratio wasslightly elevated, since on IV BID Lasix (all labs were reviewed). IV Lasix was changed to p.o. Lasix Plan: Cont po Lasix now Monitor BMP daily and avoid nephrotoxic agents Continue diuretics (9) Anticoagulation adequate Conclusion/Plan: Plan: Due to her atrial fibrillation, we will continue with her Doritamariannaabdirizak a nticoagulation - Current Meds Current Meds: Current Medications Generic Name Dose Route Start Last Admin Trade Name Freq PRN Reason Stop Dose Admin Albuterol 2.5 mg 03/16/23 18:46 03/16/23 20:40 Albuterol Neb 2.5 Mg/3 Ml INH 2.5 mg RTQ4H PRN Administration Wheezing Apixaban 5 mg 03/21/23 21:00 03/23/23 08:14 Apixaban 5 Mg Tablet PO 5 mg BID ALICIA Administration Atorvastatin Calcium 40 mg 03/16/23 21:00 03/22/23 20:39 Atorvastatin 40 Mg Tablet PO 40 mg QPM ALICIA Administration Cholecalciferol 50 mcg 03/22/23 17:00 03/23/23 08:17 Cholecalciferol 25 Mcg Tablet PO 50 mcg DAILY ALICIA Administration Digoxin 125 mcg 03/20/23 09:00 03/23/23 08:48 Digoxin 125 Mcg Tablet PO 125 mcg DAILY ALICIA Administration Docusate Sodium 250 - 500 mg 03/19/23 11:00 03/23/23 08:15 Docusate Sodium 250 Mg Capsule PO 250 mg DAILY ALICIA Administration Donepezil HCl 10 mg 03/17/23 09:00 03/23/23 08:17 Donepezil 5 Mg Tablet PO 10 mg DAILY ALICIA Administration Duloxetine HCl 60 mg 03/17/23 09:00 03/23/23 08:17 Duloxetine 30 Mg Capsule PO 60 mg DAILY ALICIA Administration Furosemide 60 mg 03/21/23 09:00 03/23/23 08:14 Furosemide 40 Mg Tablet PO 60 mg DAILY ALICIA Administration Lisinopril 2.5 mg 03/19/23 21:00 03/22/23 20:40 Lisinopril 5 Mg Tablet PO 2.5 mg QPM ALICIA Administration Metoprolol Succinate 75 mg 03/19/23 20:00 03/23/23 08:15 Metoprolol Succinate 50 Mg Tablet PO 75 mg 08,1999 [facility] Administration Multi-Ingredient Ointment 1 applic 03/20/23 12:59 03/20/23 14:37 Zinc Oxide 20% Oint 30 Gm Tube TOP 1 applic PRN PRN Administration Skin Care Multivitamins/Minerals 1 tab 03/19/23 12:00 03/23/23 08:14 Multivitamin W/Minerals Tablet PO 1 tab DAILYWM ALICIA Administration Polyethylene Glycol 17 gm 03/18/23 09:00 03/23/23 08:18 Polyethylene Glycol 3350 17 Gm Packet PO 17 gm DAILY ALICIA Administration Potassium Chloride 20 meq 03/20/23 08:00 03/23/23 08:16 Potassium Chloride 10 Meq Capsule PO 20 meq DAILYWM ALICIA Administration Senna 8.6 - 17.2 mg 03/19/23 11:00 03/23/23 08:15 Senna 8.6 Mg Tablet PO 8.6 mg DAILY ALICIA Administration Sodium Chloride 10 ml 03/16/23 17:00 03/23/23 08:21 Sodium Chloride Flush 0.9% 10 Ml Syringe IVP 10 ml 0100,0900,1700 ALICIA Administration Sodium Chloride 10 ml 03/16/23 16:04 03/19/23 05:34 Sodium Chloride Flush 0.9% 10 Ml Syringe IVP 10 ml PRN PRN Administration NEEDED PER PROVIDER ORDERS Spironolactone 25 mg 03/19/23 16:00 03/22/23 16:32 Spironolactone 25 Mg Tablet PO 25 mg 1600 ALICIA Administration - Lab Result Fish Bone Diagrams: 03/21/23 04:40 03/23/23 04:49 - Additional Planning My Orders: My Active Orders 03/22/23 17:00 Cholecalciferol [Vitamin D3] 50 mcg PO DAILY Subjective - Subjective Patient Reports: Resting Comfortably Objective Vital Signs: Vital Signs - 24 hr 03/22/23 03/22/23 03/22/23 12:36 15:49 19:45 Temperature 36.3 C L 36.2 C L 36.3 C L Heart Rate [ 91 87 86 Brachial] Respiratory 20 20 16 Rate Blood Pressure 109/73 114/67 98/72 [Right Brachial artery] O2 Saturation 94 99 96 03/22/23 03/23/23 03/23/23 20:36 00:45 04:37 Temperature 36.1 C L 35.9 C L Heart Rate [ 97 89 81 Brachial] Respiratory 16 18 Rate Blood Pressure 111/64 106/64 116/84 H [Right Brachial artery] O2 Saturation 95 96 97 03/23/23 07:33 Temperature 36.7 C Heart Rate [ 66 Brachial] Respiratory 18 Rate Blood Pressure 116/75 [Right Brachial artery] O2 Saturation 94 Oxygen O2 Source Room air I&O (Last 24 Hrs): Intake and Output Totals x24h 03/21/23 03/22/23 03/23/23 23:59 23:59 23:59 Intake Total 1330 1150 470 Output Total 600 175 500 Balance 730 975 -30 General: Alert, Other (Minimally communicative) HEENT: Mucous membr. moist/pink Neck: Supple Neuro: Other (Minimally communicative, Disoriented, has generalized weakness) Cardiovascular: No murmurs Respiratory: No respiratory distress Abdomen: Soft Extremities: No edema - Results Results: Laboratory Results WBC 14.2 x10^3/uL (4.8-10.8) H 03/21/23 04:40 RBC 5.32 10^6/uL (4.20-5.40) 03/21/23 04:40 Hgb 16.3 g/dL (12.0-16.0) H 03/21/23 04:40 Hct 50.2 % (37.0-47.0) H 03/21/23 04:40 MCV 94.4 fL (81.0-99.0) 03/21/23 04:40 MCH 30.6 pg (27.0-31.0) 03/21/23 04:40 MCHC 32.5 g/dL (32.0-36.0) 03/21/23 04:40 RDW 13.9 % (12.0-15.0) 03/21/23 04:40 Plt Count 212 10^3/uL (130-450) 03/21/23 04:40 MPV 10.5 fL (7.9-10.8) 03/21/23 04:40 Neut # (Auto) 10.6 10^3/uL (1.5-6.6) H 03/21/23 04:40 Lymph # (Auto) 2.1 10^3/uL (1.5-3.5) 03/21/23 04:40 Assumption # (Auto) 1.3 10^3/uL (0.0-1.0) H 03/21/23 04:40 Eos # (Auto) 0.2 10^3/uL (0.0-0.7) 03/21/23 04:40 Baso # (Auto) 0.0 10^3/uL (0.0-0.1) 03/21/23 04:40 Absolute Nucleated RBC 0.00 x10^3/uL 03/21/23 04:40 Nucleated RBC % 0.0 /100WBC 03/21/23 04:40 VBG pH 7.419 (7.31-7.41) H 03/22/23 08:03 VBG pCO2 28.7 mmHg (41-51) L 03/16/23 13:35 VBG pO2 65.8 mmHg (25-47) H 03/16/23 13:35 VBG HCO3 19.4 mmol/L (23-28) L 03/16/23 13:35 VBG Total CO2 20.2 mmol/L (24-29) L 03/16/23 13:35 VBG O2 Saturation 92.5 % (60-80) H 03/16/23 13:35 VBG Base Excess -3.2 mmol/L (-2 - +2) L 03/16/23 13:35 Ionized Calcium 1.12 mmol/L (1.15-1.33) L 03/22/23 08:03 Sodium 134 mmol/L (135-145) L 03/23/23 04:49 Potassium 4.3 mmol/L (3.5-5.0) 03/23/23 04:49 Chloride 90 mmol/L (101-111) L 03/23/23 04:49 Carbon Dioxide 31 mmol/L (21-32) 03/23/23 04:49 Anion Gap 13.0 (6-13) 03/23/23 04:49 BUN 25 mg/dL (6-20) H 03/23/23 04:49 Creatinine 0.9 mg/dL (0.4-1.0) 03/23/23 04:49 Estimated GFR (MDRD) 60 (>89) L 03/23/23 04:49 Glucose 94 mg/dL (70-100) 03/23/23 04:49 POC Whole Bld Glucose 116 mg/dL (70 - 100) H 03/17/23 12:06 Lactic Acid 2.0 mmol/L (0.5-2.2) 03/16/23 13:35 Calcium 9.4 mg/dL (8.5-10.3) 03/23/23 04:49 Phosphorus 4.5 mg/dL (2.5-4.6) 03/22/23 08:03 Magnesium 2.0 mg/dL (1.7-2.8) 03/23/23 04:49 Total Bilirubin 2.2 mg/dL (0.2-1.0) H 03/16/23 13:35 AST 153 IU/L (10-42) H 03/16/23 13:35 ALT 151 IU/L (10-60) H 03/16/23 13:35 Alkaline Phosphatase 113 IU/L (42-121) 03/16/23 13:35 Troponin I High Sens 25.6 ng/L (2.3-14.8) H* 03/19/23 04:43 B-Natriuretic Peptide 398 pg/mL (5-100) H 03/21/23 04:40 Total Protein 6.1 g/dL (6.7-8.2) L 03/16/23 13:35 Albumin 3.6 g/dL (3.2-5.5) 03/16/23 13:35 Globulin 2.5 g/dL (2.1-4.2) 03/16/23 13:35 Albumin/Globulin Ratio 1.4 (1.0-2.2) 03/16/23 13:35 TSH 2.10 uIU/mL (0.34-5.60) 03/16/23 13:35 Urine Color YELLOW 03/16/23 14:09 Urine Clarity HAZY (CLEAR) 03/16/23 14:09 Urine pH 5.0 PH (5.0-7.5) 03/16/23 14:09 Ur Specific Johnston >=1.030 (1.002-1.030) H 03/16/23 14:09 Urine Protein >=300 mg/dL (NEGATIVE) H 03/16/23 14:09 Urine Glucose (UA) NEGATIVE mg/dL (NEGATIVE) 03/16/23 14:09 Urine Ketones NEGATIVE mg/dL (NEGATIVE) 03/16/23 14:09 Urine Occult Blood SMALL (NEGATIVE) H 03/16/23 14:09 Urine Nitrite NEGATIVE (NEGATIVE) 03/16/23 14:09 Urine Bilirubin NEGATIVE (NEGATIVE) 03/16/23 14:09 Urine Urobilinogen 1 (NORMAL) E.U./dL (NORMAL) 03/16/23 14:09 Ur Leukocyte Esterase NEGATIVE (NEGATIVE) 03/16/23 14:09 Urine RBC 6-10 /HPF (0-5) H 03/16/23 14:09 Urine WBC 0-3 /HPF (0-5) 03/16/23 14:09 Ur Squamous Epith Cells FEW Squamous (<= Few) 03/16/23 14:09 Amorphous Sediment Few /LPF 03/16/23 14:09 Urine Bacteria Few /HPF (None Seen) 03/16/23 14:09 Ur Microscopic Review INDICATED 03/16/23 14:09 Urine Culture Comments NOT INDICATED 03/16/23 14:09 Nasal Adenovirus (PCR) NOT DETECTED 03/16/23 13:45 Nasal B. parapertussis DNA (PCR) NOT DETECTED 03/16/23 13:45 Nasal Coronavir 229E PCR NOT DETECTED 03/16/23 13:45 Nasal Coronavir HKU1 PCR NOT DETECTED 03/16/23 13:45 Nasal Coronavir NL63 PCR NOT DETECTED 03/16/23 13:45 Nasal Coronavir OC43 PCR NOT DETECTED 03/16/23 13:45 Nasal Enterovir/Rhinovir PCR NOT DETECTED 03/16/23 13:45 Nasal Influenza B PCR NOT DETECTED 03/16/23 13:45 Nasal Influenza A PCR NOT DETECTED 03/16/23 13:45 Nasal Parainfluen 1 PCR NOT DETECTED 03/16/23 13:45 Nasal Parainfluen 2 PCR NOT DETECTED 03/16/23 13:45 Nasal Parainfluen 3 PCR NOT DETECTED 03/16/23 13:45 Nasal Parainfluen 4 PCR NOT DETECTED 03/16/23 13:45 Nasal RSV (PCR) NOT DETECTED 03/16/23 13:45 Nasal Screen MRSA (PCR) NEGATIVE (NEGATIVE) 03/16/23 17:17 Nasal B.pertussis DNA PCR NOT DETECTED 03/16/23 13:45 Nasal C.pneumoniae (PCR) NOT DETECTED 03/16/23 13:45 Corey Human Metapneumo PCR NOT DETECTED 03/16/23 13:45 Nasal M.pneumoniae (PCR) NOT DETECTED 03/16/23 13:45 Nasal SARS-CoV-2 (PCR) NOT DETECTED 03/16/23 13:45 Last Dose Date 03-22-23 03/23/23 04:49 Last Dose Time 0835 03/23/23 04:49 Digoxin 0.6 ng/mL 03/23/23 04:49 - Procedures Procedures: Procedures REPLACEMENT OF RIGHT LENS WITH SYNTH SUB, PERC APPROACH (08/23/16)
[2023-03-23] MEDS: SPIRONOLACTONE 25 MG TABLET PO SCH (17:05)
[2023-03-23] MEDS: ATORVASTATIN 40 MG TABLET PO SCH (20:33)
[2023-03-23] MEDS: lisinopriL 5 MG TABLET PO SCH (22:02)
[2023-03-24] MEDS: SODIUM CHLORIDE FLUSH 0.9% 10 ML SYRINGE IVP SCH ×3 (01:31→08:13)
--- NOTE | 2023-03-24 04:33 | PROVIDER PROGRESS NOTE ---
Brim Raiser Note - Brim Raiser Note Brim Raiser Note: Consult Information Member Facility: [facility] Facility Requesting Clinician: Marilu Boyd RN Patient Name: Teresita Cheema Date of : 1940 Gender: Female Reason for Consult Reason for Consult: Other non-Emergent Clinical Note Clinical Note: per rn - "Patient full code, possible DC saturday or saturday, pulled out her upper arm IV. Patient is confused , very hard stick, with no IVF ordered or scheduled IV meds. Last IV placed by PACU nurse via US. May we leave out until morning when hospitalist is here?" ok to leave out IV for now (communication order placed)
[2023-03-24] MEDS: polyethylene glycoL 3350 17 GM PACKET PO SCH (08:08)
[2023-03-24] MEDS: DIGOXIN 125 MCG TABLET PO SCH (08:08)
[2023-03-24] MEDS: MULTIVITAMIN W/MINERALS TABLET PO SCH (08:08)
[2023-03-24] MEDS: POTASSIUM CHLORIDE 10 MEQ CAPSULE PO SCH (08:08)
[2023-03-24] MEDS: SENNA 8.6 MG TABLET PO SCH (08:08)
[2023-03-24] MEDS: APIXABAN 5 MG TABLET PO SCH ×2 (08:08→21:40)
[2023-03-24] MEDS: CHOLECALCIFEROL 25 MCG TABLET PO SCH (08:08)
[2023-03-24] MEDS: METOPROLOL SUCCINATE 50 MG TABLET PO SCH ×2 (08:09→20:23)
[2023-03-24] MEDS: DONEPEZIL 5 MG TABLET PO SCH (08:09)
[2023-03-24] MEDS: FUROSEMIDE 40 MG TABLET PO SCH (08:09)
[2023-03-24] MEDS: DULoxetine 30 MG CAPSULE PO SCH (08:15)
--- NOTE | 2023-03-24 13:06 | PROVIDER PROGRESS NOTE ---
Assessment/Plan - Problem List (1) Weakness Assessment/Plan: The patient needs to be cued in all her activities, she has dementia since her stroke, she speaks minimally. She forgets that she is feeding herself. She is also overall very weak. She now needs care with toileting. She is able to work with PT and OT. On 03/22 I updated the on her status. I also advised that she very likely will need more caregiving help when she returns back to [place] going forward. Plan: I ordered that patient needs to be fed Plan is to go to a SNF for rehab since she is participating adequately with PT and OT and is rehabable. She is medically clear for discharge today. All the SNF's that were contacted by our staff today cannot accept her today, Saturday. (2) Afib Patient presented with Afib-flutter with a HR of 150 and was started on IV diltiazem drip, admitted to ICU. Troponins were not concerning. TSH was normal. She needed many days of adjusting her metoprolol to succinate, and moving diltiazem to midday to stagger her meds, and started on new Digoxin for rate control. Dig levels have been 0.3, 0.7 and 0.6 (all labs were reviewed) Plan: Continue her Toprol, Dig and her Cardizem CD staggered dosing which is keeping HR controlled <100 She is medically clear for discharge today. Will stop telemetry Continue Eliquis for stroke prophylaxis in pt with Afib (3) Acute systolic heart failure Conclusion/Plan: In January 2023, her Echo showed EF of 55%. Her Echo done 03/19 showed 4-chamber enlargement and severely depressed LVEF of <20%. This change in global LV function in such a short time is consistent with tachycardia-induced cardiomyopathy. This EF also is consistent with her BNP at admission of 1920. I added Spironolactone and an GARY inhibitor after the Echo result. B-erick has been increased. She needs her meds staggered, because she has "soft" blood pressure. Plan: Continue good heart rate control, using B-erick, Cardizem and new Digoxin Continue Lasix, Spironolactone and GARY inhibitor. (4) Bilateral pleural effusion Conclusion/Plan: Suspect secondary to the RVR atrial fibrillation causing congestive heart failure. The BNP was 1920. CXR done 03/19, showed minimal improvement in pleural effusions, R is > L She has been on Lasix 40 mg IV twice daily and I's and O's show (-) balance. But today her labs are showing prerenal azotemia. The Echocardiogram was done 03/19, which shows new systolic heart failure. Spironolactone was started Plan: Continue Lasix and Spironolactone She has not been hypoxic therefore no thoracentesis was needed (5) Cor Pulmonale Conclusion/Plan: Her last Echo done in January 2023 showed a normal RV size and function. Her newest Echo was done 03/19 and showed new RV enlargement and severely depressed R VEF. Plan: As in #3 (6) Dementia Conclusion/Plan: After her stroke several mos ago, she appears to have dysarthria plus family noted that over the 2 days before admission, her mentation had worsened. We checked CTA head and neck and there was nothing acute. And an MRI of brain without contrast revealed no acute findings She passed a swallow eval and is eating. Patient's mental status has been clearing; she is alert, cooperative but not speaking and is very weak Plan: Continue Eliquis as stroke prophylaxis since she has chronic Afib Cont to work with PT and OT rehab at a SNF We have continued her home meds of Donepezil and Cymbalta (7) Liver lesion Conclusion/Plan: Incidental finding on CT of abdomen pelvis Plan: Per radiology recommendations recheck in several months (8) Prerenal azotemia Conclusion/Plan: BUN/creat ratio slightly elevated but is improving daily since admission, despite being on Lasix and Spironolactone Plan: Cont po Lasix now Monitor BMP daily and avoid nephrotoxic agents Continue diuretics (9) Anticoagulation adequate Conclusion/Plan: Plan: Due to her atrial fibrillation, continue her Eliquis. While she was hospitalized this time, her Eliquis dose was adjusted for proper dosing based on her creatinine, age and weight. - Current Meds Current Meds: Current Medications Generic Name Dose Route Start Last Admin Trade Name Freq PRN Reason Stop Dose Admin Albuterol 2.5 mg 03/16/23 18:46 03/16/23 20:40 Albuterol Neb 2.5 Mg/3 Ml INH 2.5 mg RTQ4H PRN Administration Wheezing Apixaban 5 mg 03/21/23 21:00 03/24/23 08:08 Apixaban 5 Mg Tablet PO 5 mg BID ALICIA Administration Atorvastatin Calcium 40 mg 03/16/23 21:00 03/23/23 20:33 Atorvastatin 40 Mg Tablet PO 40 mg QPM ALICIA Administration Cholecalciferol 50 mcg 03/22/23 17:00 03/24/23 08:08 Cholecalciferol 25 Mcg Tablet PO 50 mcg DAILY ALICIA Administration Digoxin 125 mcg 03/20/23 09:00 03/24/23 08:08 Digoxin 125 Mcg Tablet PO 125 mcg DAILY ALICIA Administration Docusate Sodium 250 - 500 mg 03/19/23 11:00 03/23/23 08:15 Docusate Sodium 250 Mg Capsule PO 250 mg DAILY ALICIA Administration Donepezil HCl 10 mg 03/17/23 09:00 03/24/23 08:09 Donepezil 5 Mg Tablet PO 10 mg DAILY ALICIA Administration Duloxetine HCl 60 mg 03/17/23 09:00 03/24/23 08:15 Duloxetine 30 Mg Capsule PO 60 mg DAILY ALICIA Administration Furosemide 60 mg 03/21/23 09:00 03/24/23 08:09 Furosemide 40 Mg Tablet PO 60 mg DAILY ALICIA Administration Lisinopril 2.5 mg 03/19/23 21:00 03/23/23 22:02 Lisinopril 5 Mg Tablet PO 2.5 mg QPM ALICIA Administration Metoprolol Succinate 75 mg 03/19/23 20:00 03/24/23 08:09 Metoprolol Succinate 50 Mg Tablet PO 75 mg 08,1999 [facility] Administration Multi-Ingredient Ointment 1 applic 03/20/23 12:59 03/20/23 14:37 Zinc Oxide 20% Oint 30 Gm Tube TOP 1 applic PRN PRN Administration Skin Care Multivitamins/Minerals 1 tab 03/19/23 12:00 03/24/23 08:08 Multivitamin W/Minerals Tablet PO 1 tab DAILYWM ALICIA Administration Polyethylene Glycol 17 gm 03/18/23 09:00 03/24/23 08:08 Polyethylene Glycol 3350 17 Gm Packet PO 17 gm DAILY ALICIA Administration Potassium Chloride 20 meq 03/20/23 08:00 03/24/23 08:08 Potassium Chloride 10 Meq Capsule PO 20 meq DAILYWM ALICIA Administration Senna 8.6 - 17.2 mg 03/19/23 11:00 03/24/23 08:08 Senna 8.6 Mg Tablet PO 8.6 mg DAILY ALICIA Administration Spironolactone 25 mg 03/19/23 16:00 03/23/23 17:05 Spironolactone 25 Mg Tablet PO 25 mg 1600 ALICIA Administration - Lab Result Fish Bone Diagrams: 03/21/23 04:40 03/23/23 04:49 - Additional Planning My Orders: My Active Orders 03/24/23 09:17 IV DC [IV Discontinuation] [RC] .ONCE 03/24/23 09:18 Telemetry-Discontinue [RC] .ONCE Subjective - Subjective Patient Reports: Resting Comfortably, No Complaints Objective Vital Signs: Vital Signs - 24 hr 03/23/23 03/23/23 03/23/23 13:47 15:44 20:30 Temperature 36.3 C L 36.5 C Heart Rate [ 85 105 H 90 Brachial] Respiratory 20 22 20 Rate Blood Pressure 107/77 99/64 111/73 [Right Brachial artery] O2 Saturation 96 95 98 03/23/23 03/24/23 03/24/23 23:36 04:30 08:18 Temperature 36.4 C L 36.0 C L 36.2 C L Heart Rate [ 99 88 94 Brachial] Respiratory 20 18 16 Rate Blood Pressure 118/77 123/73 144/85 H [Right Brachial artery] O2 Saturation 96 97 98 03/24/23 12:25 Temperature 36.1 C L Heart Rate [ 97 Brachial] Respiratory 20 Rate Blood Pressure 126/94 H [Right Brachial artery] O2 Saturation 99 Oxygen O2 Source Room air I&O (Last 24 Hrs): Intake and Output Totals x24h 03/22/23 03/23/23 03/24/23 23:59 23:59 23:59 Intake Total 1150 1180 640 Output Total 175 600 300 Balance 975 580 340 General: Other (Taking a nap) HEENT: Mucous membr. moist/pink Neck: Supple Neuro: Other (Poor memory, disoriented, minimal speech, generalized weakness) Cardiovascular: No murmurs Respiratory: No respiratory distress, Breath sounds nml Abdomen: Soft, No tenderness Extremities: No clubbing, No edema, No tenderness/swelling - Results Results: Laboratory Results WBC 14.2 x10^3/uL (4.8-10.8) H 03/21/23 04:40 RBC 5.32 10^6/uL (4.20-5.40) 03/21/23 04:40 Hgb 16.3 g/dL (12.0-16.0) H 03/21/23 04:40 Hct 50.2 % (37.0-47.0) H 03/21/23 04:40 MCV 94.4 fL (81.0-99.0) 03/21/23 04:40 MCH 30.6 pg (27.0-31.0) 03/21/23 04:40 MCHC 32.5 g/dL (32.0-36.0) 03/21/23 04:40 RDW 13.9 % (12.0-15.0) 03/21/23 04:40 Plt Count 212 10^3/uL (130-450) 03/21/23 04:40 MPV 10.5 fL (7.9-10.8) 03/21/23 04:40 Neut # (Auto) 10.6 10^3/uL (1.5-6.6) H 03/21/23 04:40 Lymph # (Auto) 2.1 10^3/uL (1.5-3.5) 03/21/23 04:40 [place] # (Auto) 1.3 10^3/uL (0.0-1.0) H 03/21/23 04:40 Eos # (Auto) 0.2 10^3/uL (0.0-0.7) 03/21/23 04:40 Baso # (Auto) 0.0 10^3/uL (0.0-0.1) 03/21/23 04:40 Absolute Nucleated RBC 0.00 x10^3/uL 03/21/23 04:40 Nucleated RBC % 0.0 /100WBC 03/21/23 04:40 VBG pH 7.419 (7.31-7.41) H 03/22/23 08:03 VBG pCO2 28.7 mmHg (41-51) L 03/16/23 13:35 VBG pO2 65.8 mmHg (25-47) H 03/16/23 13:35 VBG HCO3 19.4 mmol/L (23-28) L 03/16/23 13:35 VBG Total CO2 20.2 mmol/L (24-29) L 03/16/23 13:35 VBG O2 Saturation 92.5 % (60-80) H 03/16/23 13:35 VBG Base Excess -3.2 mmol/L (-2 - +2) L 03/16/23 13:35 Ionized Calcium 1.12 mmol/L (1.15-1.33) L 03/22/23 08:03 Sodium 134 mmol/L (135-145) L 03/23/23 04:49 Potassium 4.3 mmol/L (3.5-5.0) 03/23/23 04:49 Chloride 90 mmol/L (101-111) L 03/23/23 04:49 Carbon Dioxide 31 mmol/L (21-32) 03/23/23 04:49 Anion Gap 13.0 (6-13) 03/23/23 04:49 BUN 25 mg/dL (6-20) H 03/23/23 04:49 Creatinine 0.9 mg/dL (0.4-1.0) 03/23/23 04:49 Estimated GFR (MDRD) 60 (>89) L 03/23/23 04:49 Glucose 94 mg/dL (70-100) 03/23/23 04:49 POC Whole Bld Glucose 116 mg/dL (70 - 100) H 03/17/23 12:06 Lactic Acid 2.0 mmol/L (0.5-2.2) 03/16/23 13:35 Calcium 9.4 mg/dL (8.5-10.3) 03/23/23 04:49 Phosphorus 4.5 mg/dL (2.5-4.6) 03/22/23 08:03 Magnesium 2.0 mg/dL (1.7-2.8) 03/23/23 04:49 Total Bilirubin 2.2 mg/dL (0.2-1.0) H 03/16/23 13:35 AST 153 IU/L (10-42) H 03/16/23 13:35 ALT 151 IU/L (10-60) H 03/16/23 13:35 Alkaline Phosphatase 113 IU/L (42-121) 03/16/23 13:35 Troponin I High Sens 25.6 ng/L (2.3-14.8) H* 03/19/23 04:43 B-Natriuretic Peptide 398 pg/mL (5-100) H 03/21/23 04:40 Total Protein 6.1 g/dL (6.7-8.2) L 03/16/23 13:35 Albumin 3.6 g/dL (3.2-5.5) 03/16/23 13:35 Globulin 2.5 g/dL (2.1-4.2) 03/16/23 13:35 Albumin/Globulin Ratio 1.4 (1.0-2.2) 03/16/23 13:35 TSH 2.10 uIU/mL (0.34-5.60) 03/16/23 13:35 Urine Color YELLOW 03/16/23 14:09 Urine Clarity HAZY (CLEAR) 03/16/23 14:09 Urine pH 5.0 PH (5.0-7.5) 03/16/23 14:09 Ur Specific [place] >=1.030 (1.002-1.030) H 03/16/23 14:09 Urine Protein >=300 mg/dL (NEGATIVE) H 03/16/23 14:09 Urine Glucose (UA) NEGATIVE mg/dL (NEGATIVE) 03/16/23 14:09 Urine Ketones NEGATIVE mg/dL (NEGATIVE) 03/16/23 14:09 Urine Occult Blood SMALL (NEGATIVE) H 03/16/23 14:09 Urine Nitrite NEGATIVE (NEGATIVE) 03/16/23 14:09 Urine Bilirubin NEGATIVE (NEGATIVE) 03/16/23 14:09 Urine Urobilinogen 1 (NORMAL) E.U./dL (NORMAL) 03/16/23 14:09 Ur Leukocyte Esterase NEGATIVE (NEGATIVE) 03/16/23 14:09 Urine RBC 6-10 /HPF (0-5) H 03/16/23 14:09 Urine WBC 0-3 /HPF (0-5) 03/16/23 14:09 Ur Squamous Epith Cells FEW Squamous (<= Few) 03/16/23 14:09 Amorphous Sediment Few /LPF 03/16/23 14:09 Urine Bacteria Few /HPF (None Seen) 03/16/23 14:09 Ur Microscopic Review INDICATED 03/16/23 14:09 Urine Culture Comments NOT INDICATED 03/16/23 14:09 Nasal Adenovirus (PCR) NOT DETECTED 03/16/23 13:45 Nasal B. parapertussis DNA (PCR) NOT DETECTED 03/16/23 13:45 Nasal Coronavir 229E PCR NOT DETECTED 03/16/23 13:45 Nasal Coronavir HKU1 PCR NOT DETECTED 03/16/23 13:45 Nasal Coronavir NL63 PCR NOT DETECTED 03/16/23 13:45 Nasal Coronavir OC43 PCR NOT DETECTED 03/16/23 13:45 Nasal Enterovir/Rhinovir PCR NOT DETECTED 03/16/23 13:45 Nasal Influenza B PCR NOT DETECTED 03/16/23 13:45 Nasal Influenza A PCR NOT DETECTED 03/16/23 13:45 Nasal Parainfluen 1 PCR NOT DETECTED 03/16/23 13:45 Nasal Parainfluen 2 PCR NOT DETECTED 03/16/23 13:45 Nasal Parainfluen 3 PCR NOT DETECTED 03/16/23 13:45 Nasal Parainfluen 4 PCR NOT DETECTED 03/16/23 13:45 Nasal RSV (PCR) NOT DETECTED 03/16/23 13:45 Nasal Screen MRSA (PCR) NEGATIVE (NEGATIVE) 03/16/23 17:17 Nasal B.pertussis DNA PCR NOT DETECTED 03/16/23 13:45 Nasal C.pneumoniae (PCR) NOT DETECTED 03/16/23 13:45 Corey Human Metapneumo PCR NOT DETECTED 03/16/23 13:45 Nasal M.pneumoniae (PCR) NOT DETECTED 03/16/23 13:45 Nasal SARS-CoV-2 (PCR) NOT DETECTED 03/16/23 13:45 Last Dose Date 03-22-23 03/23/23 04:49 Last Dose Time 0835 03/23/23 04:49 Digoxin 0.6 ng/mL 03/23/23 04:49 - Procedures Procedures: Procedures REPLACEMENT OF RIGHT LENS WITH SYNTH SUB, PERC APPROACH (08/23/16)
[2023-03-24] MEDS: SPIRONOLACTONE 25 MG TABLET PO SCH (16:50)
[2023-03-24] MEDS: ATORVASTATIN 40 MG TABLET PO SCH (21:40)
[2023-03-24] MEDS: lisinopriL 5 MG TABLET PO SCH (21:40)
[2023-03-25] MEDS: ZINC OXIDE 20% OINT 30 GM TUBE TOP PRN ×2 (00:55→04:38)
[2023-03-25] MEDS: APIXABAN 5 MG TABLET PO SCH (08:30)
[2023-03-25] MEDS: DULoxetine 30 MG CAPSULE PO SCH (08:30)
[2023-03-25] MEDS: DIGOXIN 125 MCG TABLET PO SCH (08:30)
[2023-03-25] MEDS: CHOLECALCIFEROL 25 MCG TABLET PO SCH (08:30)
[2023-03-25] MEDS: DONEPEZIL 5 MG TABLET PO SCH (08:30)
[2023-03-25] MEDS: MULTIVITAMIN W/MINERALS TABLET PO SCH (08:30)
[2023-03-25] MEDS: DOCUSATE SODIUM 250 MG CAPSULE PO SCH (08:30)
[2023-03-25] MEDS: FUROSEMIDE 40 MG TABLET PO SCH (08:31)
[2023-03-25] MEDS: POTASSIUM CHLORIDE 10 MEQ CAPSULE PO SCH (08:31)
[2023-03-25] MEDS: METOPROLOL SUCCINATE 50 MG TABLET PO SCH (08:31)
[2023-03-25] MEDS: polyethylene glycoL 3350 17 GM PACKET PO SCH (08:31)
[2023-03-25] MEDS: SENNA 8.6 MG TABLET PO SCH (08:32)
[2023-03-25 09:43] VITALS: BP 117/67
--- NOTE | 2023-03-25 12:37 | Discharge Plan ---
"Discharge Plan for SNF / [facility] - Discharge Plan And Transition Orders Problem Reviewed?: Yes Disposition: 03 SNF DC/Xfer Condition: Stable Allergies and Adverse Reactions: Allergies Allergy/AdvReac Type Severity Reaction Status Date / Time meperidine [From Demerol] Allergy Unknown Verified 11/03/22 16:49 vitamin E (d-alpha Allergy Unknown Verified 03/19/23 08:15 tocopherol) Health Concerns: The patient required hospitalization to treat rapid A-fib, congestive heart failure, and ongoing weakness from a stroke that she suffered 7 months previously. The patient is minimally communicative and has dementia now. She does follow directions and needs to have PT and OT rehab before returning to living at [place]. She has needed to be fed and needs help with toileting. Plan of Treatment: As above. Care Goals: Improvement in symptoms and stabilization are the goals. Assessment: The understands and is agreeable with the plan. - SNF / [facility] Transition Orders Admit to (Facility): [facility] Under the care of (Name): Dr Alhaji Haque Discharge Diagnosis: (1) Afib with RVR Improved (2) Acute systolic heart failure Improved (3) Bilateral pleural effusion Improved (4) Cor Pulmonale Stable (5) Weakness Improving (6) Dementia Stable (7) Liver lesion Needs repeat imaging in several mos. (8) Prerenal azotemia Resolved (9) Anticoagulation adequate Stable Medicare Certification Statement: I certify that Post Hospital assisted care is medically necessary on a continuing basis for any of the conditions for which she/he is receiving care during hospitalization. Notify PCP of admission and forward orders to primary provider for signature. Weight on admission and: Weekly Call PCP immediately if weight increases by: 5 kg Other Notification Orders: Call PCP immediately if patient develops dyspnea, chest pain/tightness or edema. House Bowel Program: Yes Additional Bowel Program Orders: If no BM after 2 days, nurse may give M.O.M. 30ml PO PRN and/or ducolax Supp 1 RI and/or LIANE 250mg P.O., and/or senna 1-2 tabs PO. On day 3 nurse may give repeat above order until residents constipation is resolved. Annual Influenza Vaccine (between Jun 07 and January 04): Yes Two-step PPD per [facility] [id number] or approved exception documents: Yes Treatments & Other Orders: Daily PT and OT, Speech evaluation and therapy if appropriate Medication Orders: PLEASE REFER TO THE DISCHARGE MEDICATION LIST. Insulin Orders?: No - Medications New Prescriptions: Spironolactone [Aldactone] 25 mg PO 1600 #30 tab Digoxin [Lanoxin] 125 mcg PO UD #22 tab Furosemide [Lasix] 40 mg PO DAILY #30 tab Potassium Chloride [Micro-K] 20 meq PO DAILY #60 cap Metoprolol Succinate [Toprol Xl] 75 mg PO 0800,2000 #90 tab Cholecalciferol [Vitamin D3] 50 mcg PO DAILY #30 tab lisinopriL [Zestril] 2.5 mg PO QPM #15 tab - Diet Type: Geriatric Texture: Mech soft (Cut up.) Liquids: Thin May have monthly special meal: Yes - Therapies | Activity Therapy: Evaluation | Treat if indicated: Speech, PT, OT Rehabilitation Potential: Maximize functional status Activity: Activity as Tolerated Assistance Devices: Walker Follow Up: See PCP after discharge from SNF."
--- NOTE | 2023-03-25 13:01 | DISCHARGE SUMMARY ---
Discharge Summary Admit Date: 03/16/23 Discharge Date: 03/25/23 Discharging Provider: Dr Violette Carmona Primary Care Provider: Dr Alhaji Haque Code Status: Attempt Resuscitation Condition at Discharge: Fair Discharge Disposition: 03 SNF DC/Xfer - HPI History of Present Illness: This is an 83-year-old woman with a history of hypertension, fibromyalgia, hyperlipidemia, and dementia who is on Aricept, who also has a history of atrial fibrillation for which she is on Metoprolol and Eliquis anticoagulation. Reportedly 2 months ago she had an Echo which showed mild TR and MR but otherwise was normal. She does have a [employer] [facility]. She has been living at [place] and recently moved in with her. Over the past few days she has worsening dysarthria, but already had some at baseline, since having had a CVA in September 2022 (7 mos ago) Family relates that she has been been having increasing confusion and worsened dysarthria, over the past 2 days. Because of these sx , she presented to the ER and was found to have RVR atrial fibrillation at rates of 170. She was given 2 doses of diltiazem iv psh but is continuing to be in RVR, at rates of 115 up to 150. CBC showing modest leukocytosis, relatively unremarkable otherwise. Blood gas showing respiratory alkalosis with metabolic compensation. CMP showing elev ation in liver enzymes, prerenal azotemia and hyperchloremia. Troponin is elevated at 64, this is likely due to the A-fib with RVR. And she has evidence of CHF with a BNP of 1920 and bilateral pleural effusions on imaging. She will be admitted to the ICU on a Diltiazem drip. - HOSPITAL COURSE Hospital Course: (1) Afib with RVR Troponins were flat. TSH was normal. She was put on a Dilt drip in the ICU, and it took many days to achieve rate control by adjusting, then adding, oral meds for rate control, and finally titrating the Dilt drip off. She was discharged on new Toprol, Cardizem CD and Digoxin. Dig levels were followed. (2) Acute systolic heart failure Her CXR showed CHF and BNP was 1920 at admission. She was put on iv Lasix. She had an Echo done 03/19/23 which showed 4-chamber enlargement and severely depressed LVEF of <20%. This cardiac dilation and change in global LV function in 2 mos was consistent with tachycardia-induced cardiomyopathy. She was started on Lisinopril and Spironolactone, continued on Lasix orally and Toprol. Her BNP improved to 398. Her Full Code status should be addressed with the . (3) Bilateral pleural effusion Improved with iv diuretics. (4) Cor Pulmonale Her last Echo done 2 mos previously, in January 2023, showed a normal RV in size and function. Her newest Echo done here, on 03/19/23 showed new RV enlargement and severely depressed RVEF, also consistent with tachycardia-induced cardiomyopathy. (5) Weakness The patient needs to be cued in all her activities. She speaks minimally. She forgets how to feed herself. She is overall very weak. She now needed care with toileting The was updated on her status, and he was advised that she very likely will need more caregiving help when she returns back to [place], and going forward. She was discharged to [facility] for PT, OT and Speech Therapy. (6) Dementia As above in #5. She was kept on her Cymbalta and Donepezil. (7) Liver lesion Incidental finding on CT of abdomen pelvis. Per Radiology recommendation, this needs repeat imaging in several mos. (8) Prerenal azotemia Caused by being on iv BID Lasix. This improved as her Lasix was decreased. At discharge, her BUN/creat were 25/0.9. (9) Anticoagulation adequate We continued her Eliquis anticoagulation and corrected the dose up from 2.5 BID to 5 BID, based on her age, weight and creat. - ALLERGIES Allergies/Adverse Reactions: Allergies Allergy/AdvReac Type Severity Reaction Status Date / Time meperidine [From Demerol] Allergy Unknown Verified 11/03/22 16:49 vitamin E (d-alpha Allergy Unknown Verified 03/19/23 08:15 tocopherol) - MEDICATIONS Home Medications: Ambulatory Orders Medication Instructions Recorded Confirmed Donepezil HCl [Donepezil HCl Odt] 10 mg PO DAILY 05/07/22 03/17/23 Rosuvastatin Calcium [Crestor] 20 mg PO DAILY 05/07/22 03/16/23 DULoxetine [Cymbalta] 60 mg PO DAILY 03/16/23 03/16/23 Apixaban [Eliquis] 5 mg PO BID #60 tablet 03/25/23 Cholecalciferol [Vitamin D3] 50 mcg PO DAILY #30 tab 03/25/23 Digoxin [Lanoxin] 125 mcg PO UD #22 tab 03/25/23 Furosemide [Lasix] 40 mg PO DAILY #30 tab 03/25/23 Metoprolol Succinate [Toprol Xl] 75 mg PO 0800,2000 #90 tab 03/25/23 Potassium Chloride [Micro-K] 20 meq PO DAILY #60 cap 03/25/23 Spironolactone [Aldactone] 25 mg PO 1600 #30 tab 03/25/23 lisinopriL [Zestril] 2.5 mg PO QPM #15 tab 03/25/23 - PHYSICAL EXAM AT DISCHARGE General Appearance: positive: No acute distress, Alert Eyes Bilateral: positive: Normal inspection, EOMI ENT: positive: ENT inspection nml, No signs of dehydration Neck: positive: Nml inspection, No JVD Respiratory: positive: No respiratory distress, Breath sounds nml Cardiovascular: positive: Irregularly irregular, Systolic murmur Abdomen: positive: Non-tender, Nml bowel sounds, No distention Skin: positive: Warm, Dry Extremities: positive: Non-tender, No pedal edema Neurologic/Psychiatric: positive: Disoriented to person, Disoriented to place, Disoriented to time, Weakness, Slurred/abnml speech (Speaks minimally and only answers in 1-2 word sentences) - LABS Result Diagrams: 03/21/23 04:40 03/23/23 04:49 - DIAGNOSTIC IMAGING Diagnostic Imaging Results: Final report reviewed - FOLLOW UP Follow Up: See PCP after discharge from SNF. - TIME SPENT Time Spent in Discharge (Minutes): 55
== END 2023-03-25 14:10 | DRG 308 ==
LOC: EDUNIT# → ED 13:15 → ICU 16:04 → MS2 03-21 16:45
PROVIDERS: ADMIT Specialist; ATTEND Internal Medicine
DX: I48.91 Unspecified atrial fibrillation (principal); I50.21 Acute systolic (congestive) heart failure; J90 Pleural effusion, not elsewhere classified; I50.30 Unspecified diastolic (congestive) heart failure; G93.40 Encephalopathy, unspecified; I11.0 Hypertensive heart disease with heart failure; I42.8 Other cardiomyopathies; D72.829 Elevated white blood cell count, unspecified; I27.81 Cor pulmonale (chronic); R53.1 Weakness; Z20.822 Contact with and (suspected) exposure to COVID-19; F03.90 Unspecified dementia, unspecified severity, without behavioral disturbance, psychotic disturbance, mood disturbance, and anxiety; K76.9 Liver disease, unspecified; R79.89 Other specified abnormal findings of blood chemistry; E78.00 Pure hypercholesterolemia, unspecified; R41.82 Altered mental status, unspecified; I69.322 Dysarthria following cerebral infarction; I69.398 Other sequelae of cerebral infarction; Z79.01 Long term (current) use of anticoagulants
CPT/HCPCS: 36415; 51701; 70450; 70551; 71045; 71260; 74177; 80048; 80053; 80162; 81001; 82330; 82803; 83605; 83735; 83880; 84100; 84132; 84443; 84484; 85025; 87040; 87150; 87633; 93005; 93306; 94640; 96361; 96374; 96376; 97162; 97166; 97530; 97535; 99285; 99291; A9270; J1170; Q9967; 81003; 82310; 87086

== ENCOUNTER 2023-04-08 11:06 | Outpatient (CLI) | payer MEDICARE, OTHER | END 2023-04-08 23:59 | disposition critical access hospital (66) | LOC: EMS 11:06 | DX: S69.91XA Unspecified injury of right wrist, hand and finger(s), initial encounter (principal); W06.XXXA Fall from bed, initial encounter; Y92.092 Bedroom in other non-institutional residence as the place of occurrence of the external cause | CPT/HCPCS: A0425; A0429 ==

== ENCOUNTER 2023-04-08 11:12 | Emergency (ER) | payer MEDICARE, OTHER ==
--- NOTE | 2023-04-08 11:19 | ED Physician Documentation ---
PD HPI Fall - Stated complaint Stated Complaint: GLF - History obtained from History obtained from: Patient, Other (saw pt at 11:18, righ as brought into room.) - History of Present Illness Mechanism of injury: Unknown Fall distance: Standing position Timing - onset: Last night Injury(ies) location: Right Upper Extremity (distal radius/wrist). No: Head, Neck, Chest Pain level max: 3 (at wrist, no head pain) Pain level now: 3 Quality of pain: Aching Associated symptoms: No: LOC (unknown symptoms preceding or after the time of the fall. Pt with dementia and poor short term memory. no headache nor altered alertness.), Weakness, Paresthesias Worsens with: Movement, Palpation Contributing factors: Anticoagulated Recently seen: Not recently seen Review of Systems Unable to obtain: Dementia Cardiac: denies: Chest pain / pressure GI: denies: Abdominal Pain Musculoskeletal: denies: Neck pain, Back pain Neurologic: denies: Focal weakness, Headache PD PAST MEDICAL HISTORY - Past Medical History Cardiovascular: Hypertension, High cholesterol, Arrhythmia Respiratory: None Neuro: Dementia, CVA Endocrine/Autoimmune: None GI: None HEALTH AND SAFETY TRAINER: None : None HEENT: None Psych: None Musculoskeletal: Fibromyalgia Derm: None - Past Surgical History Past Surgical History: Yes /HEALTH AND SAFETY TRAINER: Hysterectomy Neuro:  HEENT: Cataracts - Present Medications Home Medications: Ambulatory Orders Medication Instructions Recorded Confirmed Donepezil HCl [Donepezil HCl Odt] 10 mg PO DAILY 05/07/22 03/17/23 Rosuvastatin Calcium [Crestor] 20 mg PO DAILY 05/07/22 03/16/23 DULoxetine [Cymbalta] 60 mg PO DAILY 03/16/23 03/16/23 Apixaban [Eliquis] 5 mg PO BID #60 tablet 03/25/23 Cholecalciferol [Vitamin D3] 50 mcg PO DAILY #30 tab 03/25/23 Digoxin [Lanoxin] 125 mcg PO UD #22 tab 03/25/23 Furosemide [Lasix] 40 mg PO DAILY #30 tab 03/25/23 Metoprolol Succinate [Toprol Xl] 75 mg PO 0800,1999 #90 tab 03/25/23 Potassium Chloride [Micro-K] 20 meq PO DAILY #60 cap 03/25/23 Spironolactone [Aldactone] 25 mg PO 1600 #30 tab 03/25/23 lisinopriL [Zestril] 2.5 mg PO QPM #15 tab 03/25/23 - Allergies Allergies/Adverse Reactions: Allergies Allergy/AdvReac Type Severity Reaction Status Date / Time meperidine [From Demerol] Allergy Unknown Verified 11/03/22 16:49 vitamin E (d-alpha Allergy Unknown Verified 03/19/23 08:15 tocopherol) - Social History Does the pt smoke?: No Smoking Status: Unknown if ever smoked Does the pt drink ETOH?: No Does the pt have substance abuse?: No - Immunizations Immunizations are current?: Yes - POLST Patient has POLST: No PD ED PE NORMAL - Vitals Vital signs reviewed: Yes - General General: Alert and oriented X 3, No acute distress, Well developed/nourished - HEENT HEENT: Atraumatic, PERRL, EOMI - Neck Neck: Supple, no meningeal sign, No bony TTP, No adenopathy - Cardiac Cardiac: No murmur. No: RRR (irregular but rate controlled. ) - Respiratory Respiratory: No respiratory distress, Clear bilaterally, Other (no chestwall tenderness. ) - Abdomen Abdomen: Soft, Non tender - Derm Derm: Normal color, Warm and dry - Extremities Extremities: Other - Neuro Neuro: No motor deficit, No sensory deficit, Normal speech Eye Opening: Spontaneous Motor: Obeys Commands Verbal: Oriented GCS Score: 15 Results - Vitals Vitals: Vital Signs - 24 hr 04/08/23 11:17 Temperature 36.3 C L Heart Rate 95 Respiratory 20 Rate Blood Pressure 113/84 H O2 Saturation 97 Oxygen O2 Source Room air - Labs Labs: Laboratory Tests 04/08/23 04/08/23 11:58 11:58 WBC 9.4 RBC 4.56 Hgb 14.3 Hct 43.5 MCV 95.4 MCH 31.4 H MCHC 32.9 RDW 13.5 Plt Count 198 MPV 9.4 Neut # (Auto) 7.1 H Lymph # (Auto) 1.1 L [place] # (Auto) 0.9 Eos # (Auto) 0.2 Baso # (Auto) 0.0 Absolute Nucleated RBC 0.00 Nucleated RBC % 0.0 Sodium 137 Potassium 3.3 L Chloride 100 L Carbon Dioxide 29 Anion Gap 8.0 BUN 15 Creatinine 0.7 Estimated GFR (MDRD) 80 L Glucose 91 Calcium 8.9 Total Bilirubin 0.9 AST 28 ALT 34 Alkaline Phosphatase 88 Total Protein 6.5 L Albumin 3.5 Globulin 3.0 Albumin/Globulin Ratio 1.2 Lipase 37 - Rads (name of study) head CT Relevant Findings:: Prelim report reviewed (no ICH nor acute findings. ), See rad report right wrist Relevant Findings:: Prelim report reviewed, EMP independent interpretation of test (impacted distal radius fracture, nondisplaced and not angulated.), See rad report Procedures - Splint (location) - Minor right wrsit Splint applied by: Tech Type of splint: Fiberglass, Short arm Other: Patient tolerated well, Neurovascular intact, Sling provided PD Medical Decision Making - ED course Complexity details: reviewed results (wrist fracture nondisplaced. Head CT without ICh. ), considered differential, d/w patient (she does not remember the fall and has poor short term memory c/w dementia. ) Departure - Departure Disposition: 01 Home, Self Care Clinical Impression: Fall, Right wrist fracture, Anticoagulant long-term use Condition: Stable Instructions: ED Fx Colles Wrist No Redu Requ Follow-Up: Orthopedic Care [Provider Group] Comments: Your wrist x-ray shows a fracture of the wrist at the end of the radius. Is not on displaced. We placed it in the splint to protect it and hold still. Follow-up with orthopedics later this week or early next week for recheck and to change to a cast. This should allow adequate time for any swelling to develop and resolve so can be casted. Tylenol every 4-6 hours if needed for pains. We did do a CT scan of your head and neck and did not show any bleeding or acute injuries. Continue with your usual medications. Discharge Date/Time: 04/08/23 13:48
[2023-04-08 11:27] VITALS: BP 113/84
--- NOTE | 2023-04-08 11:50 | XRAY Report ---
PROCEDURE: Wrist 3 View RT INDICATIONS: fall with wrist pain and swelling TECHNIQUE: 3 views of the wrist were acquired. COMPARISON: None. FINDINGS: Bones: Impacted distal radius fracture, potentially not extending to the articular surface. No assoc iated ulnar styloid fracture seen. No other fractures or dislocations. Soft tissues: No suspicious soft tissue calcifications or masses. IMPRESSION: Impacted distal radius fracture. Reviewed by: Andre De La Paz MD on 04/08/2023 11:49 AM PDT Approved by: Andre De La Paz MD on 04/08/2023 11:49 AM PDT Station ID: [id number]
[2023-04-08 12:06] LABS: BASOPHILS % (AUTO) 0.2 %; EOSINOPHILS # (AUTO) 0.2 10^3/uL (0.0-0.7); EOSINOPHILS % (AUTO) 1.9 %; HCT - HEMATOCRIT 43.5 % (37.0-47.0); HGB - HEMOGLOBIN 14.3 g/dL (12.0-16.0); LYMPHOCYTES # (AUTO) 1.1 10^3/uL (1.5-3.5); LYMPHOCYTES % (AUTO) 12.1 %; MEAN CORPUSCULAR HEMOGLOBIN 31.4 pg (27.0-31.0); MEAN CORPUSCULAR HGB CONC 32.9 g/dL (32.0-36.0); MEAN CORPUSCULAR VOLUME 95.4 fL (81.0-99.0); MEAN PLATELET VOLUME 9.4 fL (7.9-10.8); MONOCYTES # (AUTO) 0.9 10^3/uL (0.0-1.0); MONOCYTES % (AUTO) 9.2 %; NEUTROPHILS # (AUTO) 7.1 10^3/uL (1.5-6.6); NEUTROPHILS % (AUTO) 76.3 %; PLT - PLATELET COUNT 198 10^3/uL (130-450); RED BLOOD COUNT 4.56 10^6/uL (4.20-5.40); RED CELL DISTRIBUTION WIDTH 13.5 % (12.0-15.0); WHITE BLOOD COUNT 9.4 x10^3/uL (4.8-10.8)
--- NOTE | 2023-04-08 12:13 | CT Report ---
PROCEDURE: HEAD WO INDICATIONS: fall, on DOAC TECHNIQUE: Noncontrast 4.5 mm thick angled axial sections acquired from the foramen magnum to the vertex. For r adiation dose reduction, the following was used: automated exposure control, adjustment of mA and/or kV according to patient size. COMPARISON: 03/16/2023. FINDINGS: Image quality: Excellent. CSF spaces: Basal cisterns are patent. No extra-axial fluid collections. Chronic ventriculomegaly Brain: No midline shift. No intracranial masses or hemorrhage. Yanez-white matter interface is norm al. Age-related volume loss and severe small vessel ischemic change. Intracranial carotid calcificat ions. Skull and face: Calvarium and visualized facial bones are intact, without suspicious lesions. Sinuses: Visualized sinuses and mastoids are clear. IMPRESSION: 1. Stable findings. Age-related volume loss and severe small vessel ischemic change. 2. No acute intracranial process. Reviewed by: Andre De La Paz MD on 04/08/2023 12:12 PM PDT Approved by: Andre De La Paz MD on 04/08/2023 12:12 PM PDT Station ID: [id number]
[2023-04-08] MEDS: ACETAMINOPHEN 325 MG TABLET PO STA (12:15)
[2023-04-08 12:20] LABS: ALBUMIN 3.5 g/dL (3.2-5.5); ALBUMIN/GLOBULIN RATIO 1.2 (1.0-2.2); BILIRUBIN,TOTAL 0.9 mg/dL (0.2-1.0); CALCIUM 8.9 mg/dL (8.5-10.3); CREATININE 0.7 mg/dL (0.4-1.0); POTASSIUM 3.3 mmol/L (3.5-5.0); TOTAL PROTEIN 6.5 g/dL (6.7-8.2)
--- NOTE | 2023-04-08 12:25 | CT Report ---
PROCEDURE: CERVICAL SPINE WO INDICATIONS: fall, on DOAC TECHNIQUE: Noncontrast 3 mm thick sections acquired from the skull base to the T4 level. Sagittal and coronal r eformats were then constructed. For radiation dose reduction, the following was used: automated exp osure control, adjustment of mA and/or kV according to patient size. COMPARISON: None. FINDINGS: Image quality: Excellent. Bones: No fractures or dislocations. Visualized superior ribs are intact. Cervical spondylosis. Mu ltilevel disc height loss and uncovertebral joint osteophytes. Bilateral foraminal narrowing at C4-C5 and C5-C6. Left facet hypertrophy at C2-C3. Soft tissues: Prevertebral soft tissues are normal in thickness. No paravertebral hematomas. No ap ical pneumothoraces. IMPRESSION: 1. No acute cervical fracture or dislocation. 2. Cervical spondylitic change Reviewed by: Andre De La Paz MD on 04/08/2023 12:23 PM PDT Approved by: Andre De La Paz MD on 04/08/2023 12:23 PM PDT Station ID: [id number]
== END 2023-04-08 13:48 | disposition home or self-care (01) ==
LOC: EDUNIT# → ED 11:12
DX: S52.501A Unspecified fracture of the lower end of right radius, initial encounter for closed fracture (principal); W18.30XA Fall on same level, unspecified, initial encounter; F03.90 Unspecified dementia, unspecified severity, without behavioral disturbance, psychotic disturbance, mood disturbance, and anxiety; I10 Essential (primary) hypertension; E78.00 Pure hypercholesterolemia, unspecified; Z86.73 Personal history of transient ischemic attack (TIA), and cerebral infarction without residual deficits; Z79.899 Other long term (current) drug therapy; Z79.01 Long term (current) use of anticoagulants
CPT/HCPCS: 29125; 36415; 70450; 72125; 73110; 80053; 83690; 85025; 93005; 99283; 99284; A9270

== ENCOUNTER 2023-04-08 13:50 | Outpatient (CLI) | payer MEDICARE, OTHER | END 2023-04-08 23:59 | LOC: EMS 13:50 | PROVIDERS: ATTEND Emergency Medicine | DX: S62.101A Fracture of unspecified carpal bone, right wrist, initial encounter for closed fracture (principal); X58.XXXA Exposure to other specified factors, initial encounter; R53.1 Weakness; F03.90 Unspecified dementia, unspecified severity, without behavioral disturbance, psychotic disturbance, mood disturbance, and anxiety; R41.0 Disorientation, unspecified | CPT/HCPCS: A0425; A0428 ==

== ENCOUNTER 2023-04-16 08:15 | Outpatient (CLI) | payer MEDICARE, OTHER ==
--- NOTE | 2023-04-16 15:27 | XRAY Report ---
PROCEDURE: Wrist 3 View RT INDICATIONS: RIGHT WRIST FRACTURE TECHNIQUE: 3 views of the wrist were acquired. COMPARISON: None. FINDINGS: Bones: Nondisplaced fracture of the distal radius. No suspicious bony lesions. Soft tissues: No suspicious soft tissue calcifications or masses. IMPRESSION: Nondisplaced fracture of the distal right radius. Reviewed by: Luis Jean on 04/16/2023 3:25 PM PDT Approved by: Luis Jean on 04/16/2023 3:25 PM PDT Station ID: [id number]
== END 2023-04-16 23:59 | disposition home or self-care (01) ==
LOC: DI.WOS 08:15
PROVIDERS: ATTEND Orthopaedic Surgery Sports Medicine
DX: S52.501A Unspecified fracture of the lower end of right radius, initial encounter for closed fracture (principal)

== ENCOUNTER 2023-07-25 16:00 | Outpatient (CLI) | payer MEDICARE, OTHER | END 2023-07-25 16:01 | disposition critical access hospital (66) | LOC: EMS 16:00 | DX: Z03.89 Encounter for observation for other suspected diseases and conditions ruled out (principal); W18.30XA Fall on same level, unspecified, initial encounter; Y92.091 Bathroom in other non-institutional residence as the place of occurrence of the external cause; Z79.01 Long term (current) use of anticoagulants | CPT/HCPCS: A0425; A0429 ==

== ENCOUNTER 2023-07-25 16:19 | Emergency (ER) | payer MEDICARE, OTHER ==
--- NOTE | 2023-07-25 17:17 | CT Report ---
PROCEDURE: HEAD WO INDICATIONS: fall, head injury TECHNIQUE: Noncontrast 4.5 mm thick angled axial sections acquired from the foramen magnum to the vertex. For r adiation dose reduction, the following was used: automated exposure control, adjustment of mA and/or kV according to patient size. COMPARISON: 04/08/2023. FINDINGS: Image quality: Excellent. CSF spaces: Basal cisterns are patent. No extra-axial fluid collections. Ventricles are normal in size and shape. Brain: No midline shift. No intracranial masses or hemorrhage. No mass effect. Yanez-white matter i nterface is normal. There moderate cerebral volume loss for age with resultant ventricular and sulcal prominence. There are extensive periventricular and deep white matter chronic small vessel ischemic changes. Atherosclerotic calcifications are noted in the intracranial segments of the bilateral inter nal carotid arteries. Skull and face: Calvarium and visualized facial bones are intact, without suspicious lesions. Sinuses: Visualized sinuses and mastoids are clear. IMPRESSION: No acute intracranial pathology. No acute calvarial fracture. Stable age-related senescent changes and sequela of chronic small vessel ischemic disease. Reviewed by: Ming Tyler MD on 07/25/2023 5:15 PM PDT Approved by: Ming Tyler MD on 07/25/2023 5:15 PM PDT Station ID: [id number]
--- NOTE | 2023-07-25 17:20 | CT Report ---
PROCEDURE: CERVICAL SPINE WO INDICATIONS: fall, head injury TECHNIQUE: Noncontrast 3 mm thick sections acquired from the skull base to the T4 level. Sagittal and coronal r eformats were then constructed. For radiation dose reduction, the following was used: automated exp osure control, adjustment of mA and/or kV according to patient size. COMPARISON: 04/07/2023 FINDINGS: Image quality: Diagnostic. Bones: No acute fractures or dislocations. No acute compression fractures of the vertebral bodies. Craniocervical junction is intact. C1-C2 relationship is preserved. Visualized superior ribs are inta ct. Severe multilevel cervical spondylosis. No high-grade canal stenosis is identified. Soft tissues: Prevertebral soft tissues are normal in thickness. No paravertebral hematomas. No ap ical pneumothoraces. IMPRESSION: CT cervical spine without acute fracture or traumatic malalignment. Severe multilevel cervical spondylosis. Reviewed by: Ming Tyler MD on 07/25/2023 5:18 PM PDT Approved by: Ming Tyler MD on 07/25/2023 5:18 PM PDT Station ID: [id number]
--- NOTE | 2023-07-25 17:29 | ED Physician Documentation ---
History of Present Illness - Stated complaint Stated Complaint: FALL - Chief complaint Chief Complaint: Trauma Hd/Nk - History obtained from History obtained from: EMS - History of Present Illness Timing: Today Pain level max: 0 Pain level now: 0 - Additonal information Additional information: 83-year-old female with a history of dementia presents to the emergency department after being found on the ground at her longterm. Unclear if she struck her head or not. Patient has no complaints. Does not recall what happened. No other history is available. She does take Eliquis. Review of Systems Unable to obtain: AMS, Dementia PD PAST MEDICAL HISTORY - Past Medical History Cardiovascular: Hypertension, High cholesterol, Arrhythmia Respiratory: None Neuro: Dementia, CVA Endocrine/Autoimmune: None GI: None CERTIFIED TECHNICIAN SPECIALIST: None : None HEENT: None Psych: None Musculoskeletal: Fibromyalgia Derm: None - Past Surgical History Past Surgical History: Yes /CERTIFIED TECHNICIAN SPECIALIST: Hysterectomy Neuro:  HEENT: Cataracts - Present Medications Home Medications: Ambulatory Orders Medication Instructions Recorded Confirmed Donepezil HCl [Donepezil HCl Odt] 10 mg PO DAILY 05/07/22 03/17/23 Rosuvastatin Calcium [Crestor] 20 mg PO DAILY 05/07/22 03/16/23 DULoxetine [Cymbalta] 60 mg PO DAILY 03/16/23 03/16/23 Apixaban [Eliquis] 5 mg PO BID #60 tablet 03/25/23 Cholecalciferol [Vitamin D3] 50 mcg PO DAILY #30 tab 03/25/23 Digoxin [Lanoxin] 125 mcg PO UD #22 tab 03/25/23 Furosemide [Lasix] 40 mg PO DAILY #30 tab 03/25/23 Metoprolol Succinate [Toprol Xl] 75 mg PO 0800,2000 #90 tab 03/25/23 Potassium Chloride [Micro-K] 20 meq PO DAILY #60 cap 03/25/23 Spironolactone [Aldactone] 25 mg PO 1600 #30 tab 03/25/23 lisinopriL [Zestril] 2.5 mg PO QPM #15 tab 03/25/23 - Allergies Allergies/Adverse Reactions: Allergies Allergy/AdvReac Type Severity Reaction Status Date / Time meperidine [From Demerol] Allergy Unknown Verified 11/03/22 16:49 vitamin E (d-alpha Allergy Unknown Verified 06/13/23 08:15 tocopherol) - Social History Does the pt smoke?: No Smoking Status: Unknown if ever smoked Does the pt drink ETOH?: No Does the pt have substance abuse?: No - Immunizations Immunizations are current?: Yes - POLST Patient has POLST: No PD ED PE NORMAL - Vitals Vital signs reviewed: Yes - General General: No acute distress, Well developed/nourished, Other (Alert, pleasant, oriented to person only) - HEENT HEENT: Atraumatic, PERRL, EOMI, Moist mucous membranes, Pharynx benign - Neck Neck: Supple, no meningeal sign - Cardiac Cardiac: RRR, Strong equal pulses - Respiratory Respiratory: No respiratory distress, Clear bilaterally - Abdomen Abdomen: Soft, Non tender, Non distended - Back Back: No spinal TTP - Derm Derm: Warm and dry - Extremities Extremities: Normal ROM s pain - Neuro Neuro: No motor deficit, No sensory deficit, Other (Alert, pleasant oriented to person only) Eye Opening: Spontaneous Motor: Obeys Commands Verbal: Confused GCS Score: 14 Results - Vitals Vitals: Vital Signs - 24 hr 07/25/23 07/25/23 16:24 17:34 Temperature 36.8 C Heart Rate 55 L 58 L Respiratory 18 18 Rate Blood Pressure 121/68 126/71 O2 Saturation 100 98 Oxygen O2 Source Room air - Rads (name of study) Head CT Relevant Findings:: Final report received, See rad report Cervical spine CT Relevant Findings:: Final report received, See rad report PD Medical Decision Making - ED course Complexity details: reviewed results, re-evaluated patient, considered differential, d/w patient ED course: No acute findings on head CT or cervical spine CT. The patient has significant dementia and is unable to give any history. She is on Eliquis. No other evidence of traumatic injuries. No lacerations, hematomas, abrasions. No emergency medical condition at this time. Patient will be returned back to her longterm. This document was made in part using voice recognition software. While efforts are made to proofread this document, sound alike and grammatical errors may occur. Departure - Departure Disposition: 01 Home, Self Care Clinical Impression: Fall Qualifiers: Encounter type: initial encounter Qualified Code(s): W19.XXXA - Unspecified fall, initial encounter Dementia Qualifiers: Dementia type: unspecified type Dementia severity: unspecified severity Dementia behavioral or psychological symptom: without behavioral, psychotic, or mood disturbance or anxiety Qualified Code(s): F03.90 - Unspecified dementia, unspecified severity, without behavioral disturbance, psychotic disturbance, mood disturbance, and anxiety Condition: Good Instructions: ED Head Injury Closed Follow-Up: your,doctor in 1 week [Other] Comments: There are no acute findings on her head CT or cervical spine CT. Please follow- up with her doctor as needed for further care. She can continue her current medications at home. Forms: PCP List Discharge Date/Time: 07/25/23 18:19
[2023-07-25 17:37] VITALS: BP 126/71; O2SAT 98
== END 2023-07-25 18:19 | disposition home or self-care (01) ==
LOC: EDUNIT# → ED 16:19
DX: Z04.3 Encounter for examination and observation following other accident (principal); F03.90 Unspecified dementia, unspecified severity, without behavioral disturbance, psychotic disturbance, mood disturbance, and anxiety
CPT/HCPCS: 99283; 99284

== ENCOUNTER 2023-07-25 18:22 | Outpatient (CLI) | payer MEDICARE, OTHER | END 2023-07-25 18:23 | disposition home or self-care (01) | LOC: EMS 18:22 | PROVIDERS: ATTEND Emergency Medicine | DX: R41.0 Disorientation, unspecified (principal); F03.90 Unspecified dementia, unspecified severity, without behavioral disturbance, psychotic disturbance, mood disturbance, and anxiety | CPT/HCPCS: A0425; A0428 ==

== ENCOUNTER 2023-08-10 04:49 | Outpatient (CLI) | payer MEDICARE, OTHER | END 2023-08-10 23:59 | disposition critical access hospital (66) | LOC: EMS 04:49 | DX: S01.112A Laceration without foreign body of left eyelid and periocular area, initial encounter (principal); W18.30XA Fall on same level, unspecified, initial encounter; Y92.092 Bedroom in other non-institutional residence as the place of occurrence of the external cause; R41.0 Disorientation, unspecified; R46.4 Slowness and poor responsiveness; Z79.01 Long term (current) use of anticoagulants | CPT/HCPCS: A0425; A0429 ==

== ENCOUNTER 2023-08-10 05:06 | Emergency (ER) | payer MEDICARE, OTHER ==
--- NOTE | 2023-08-10 05:03 | ED Physician Documentation ---
PD HPI Fall - Stated complaint Stated Complaint: GLF - History obtained from History obtained from: EMS - Additional information Additional information: BIBA from local long term. Patient was found on the ground by staff, obvious injuries to her face. Patient has dementia and thus cannot contribute to HPI/ROS. Patient's medication list includes Eliquis for atrial fibrillation. Review of Systems Unable to obtain: Dementia PD PAST MEDICAL HISTORY - Past Medical History Past Medical History: Yes Cardiovascular: Atrial fibrillation Neuro: Dementia - Present Medications Home Medications: Ambulatory Orders Medication Instructions Recorded Confirmed Donepezil HCl [Donepezil HCl Odt] 10 mg PO DAILY 05/07/22 03/17/23 Rosuvastatin Calcium [Crestor] 20 mg PO DAILY 05/07/22 03/16/23 DULoxetine [Cymbalta] 60 mg PO DAILY 03/16/23 03/16/23 Apixaban [Eliquis] 5 mg PO BID #60 tablet 03/25/23 Cholecalciferol [Vitamin D3] 50 mcg PO DAILY #30 tab 03/25/23 Digoxin [Lanoxin] 125 mcg PO UD #22 tab 03/25/23 Furosemide [Lasix] 40 mg PO DAILY #30 tab 03/25/23 Metoprolol Succinate [Toprol Xl] 75 mg PO 0800,2000 #90 tab 03/25/23 Potassium Chloride [Micro-K] 20 meq PO DAILY #60 cap 03/25/23 Spironolactone [Aldactone] 25 mg PO 1600 #30 tab 03/25/23 lisinopriL [Zestril] 2.5 mg PO QPM #15 tab 03/25/23 - Allergies Allergies/Adverse Reactions: Allergies Allergy/AdvReac Type Severity Reaction Status Date / Time meperidine [From Demerol] Allergy Unknown Verified 08/10/23 05:36 vitamin E (d-alpha Allergy Unknown Verified 08/10/23 05:36 tocopherol) PD ED PE NORMAL - Vitals Vital signs reviewed: Yes - General General: No acute distress, Well developed/nourished, Other (makes intentional movements but not following commands. does not answer questions, nonverbal. cervical collar in place on arrival) - HEENT HEENT: PERRL, Moist mucous membranes - Cardiac Cardiac: RRR - Respiratory Respiratory: No respiratory distress, Clear bilaterally - Abdomen Abdomen: Soft, Non tender - Neuro Eye Opening: To Pain Motor: Localizes to Pain Verbal: None GCS Score: 8 PD ED PE EXPANDED - HEENT HEENT Visual: 1 - bruising, swelling, tenderness 2 - laceration (1 cm length) Results - Vitals Vitals: Vital Signs - 24 hr 08/10/23 08/10/23 08/10/23 06:56 07:00 07:30 Heart Rate 77 65 67 Respiratory 20 18 18 Rate Blood Pressure 148/76 H 137/78 H 121/70 O2 Saturation 98 94 93 08/10/23 08:30 Heart Rate 62 Respiratory 15 Rate Blood Pressure 114/66 O2 Saturation 95 Oxygen O2 Source Room air - Labs Labs: Laboratory Tests 08/10/23 08/10/23 08/10/23 05:15 05:15 05:15 WBC 16.9 H RBC 4.07 L Hgb 13.3 Hct 40.1 MCV 98.5 MCH 32.7 H MCHC 33.2 RDW 12.4 Plt Count 238 MPV 9.8 Neut # (Auto) 14.8 H Lymph # (Auto) 1.2 L [place] # (Auto) 0.7 Eos # (Auto) 0.1 Baso # (Auto) 0.1 Absolute Nucleated RBC 0.00 Nucleated RBC % 0.0 PT 13.7 H INR 1.3 H APTT 28.0 Sodium 138 Potassium 4.1 Chloride 104 Carbon Dioxide 27 Anion Gap 7.0 BUN 21 H Creatinine 0.8 Estimated GFR (MDRD) 68 L Glucose 157 H Calcium 9.3 Total Bilirubin 0.8 AST 17 ALT 12 Alkaline Phosphatase 104 Total Protein 6.5 Albumin 4.1 Globulin 2.4 Albumin/Globulin Ratio 1.7 Lipase < 10 L - Rads (name of study) CTH Relevant Findings:: Prelim report reviewed, See rad report CT cervical spine Relevant Findings:: Prelim report reviewed, See rad report CT maxillofacial Relevant Findings:: Prelim report reviewed, See rad report CT chest with IV contrast Relevant Findings:: Prelim report reviewed, See rad report CT A/P with IV contrast Relevant Findings:: Prelim report reviewed, See rad report Procedures - Laceration (location) Face left Length in cm: 1 Wound type: Linear Neurovascular status: Vascular intact Tendon involvement: Tendon intact Anesthesia: Lidocaine 1% Wound preparation: Chlorhexadine, Irrigated copiously NS, Wound explored Skin layer closure: Nylon, Running, Size #-0 - enter number (4-0) Other: Patient tolerated well, No complications, Neurovascular intact PD Medical Decision Making - ED course Complexity details: reviewed results, re-evaluated patient, considered differential ED course: No concerning findings on ER abdominal panel. Leukocytosis is noted on CBC (WBC 16.9) likely demarginalization due to the injury. There are no concerning findings on CT head, neck, maxillofacial bones, chest, abdomen and pelvis. The CT of the maxillofacial bones does reveal left frontal and left periorbital hematoma which are evident on the physical exam. Left eyebrow laceration is repaired as noted above under procedure note. Patient is discharged back to nursing facility. Departure - Departure Disposition: 01 Home, Self Care Clinical Impression: Fall Qualifiers: Encounter type: initial encounter Qualified Code(s): W19.XXXA - Unspecified fall, initial encounter Facial laceration Qualifiers: Encounter type: initial encounter Qualified Code(s): S01.81XA - Laceration without foreign body of other part of head, initial encounter Contusion of face Qualifiers: Encounter type: initial encounter Qualified Code(s): S00.83XA - Contusion of other part of head, initial encounter Condition: Good Instructions: ED Head Injury Closed, ED Laceration Facial Sutr Tape Comments: There were no concerning findings on the CT scans of the head, neck, chest, abdomen and pelvis. The laceration above the left eye was repaired with stitches that need to be removed in 7 to 10 days. Forms: PCP List Discharge Date/Time: 08/10/23 08:42
[2023-08-10 05:35] LABS: BASOPHILS # (AUTO) 0.1 10^3/uL (0.0-0.1); BASOPHILS % (AUTO) 0.4 %; EOSINOPHILS # (AUTO) 0.1 10^3/uL (0.0-0.7); EOSINOPHILS % (AUTO) 0.4 %; HCT - HEMATOCRIT 40.1 % (37.0-47.0); HGB - HEMOGLOBIN 13.3 g/dL (12.0-16.0); LYMPHOCYTES # (AUTO) 1.2 10^3/uL (1.5-3.5); LYMPHOCYTES % (AUTO) 7.3 %; MEAN CORPUSCULAR HEMOGLOBIN 32.7 pg (27.0-31.0); MEAN CORPUSCULAR HGB CONC 33.2 g/dL (32.0-36.0); MEAN CORPUSCULAR VOLUME 98.5 fL (81.0-99.0); MEAN PLATELET VOLUME 9.8 fL (7.9-10.8); MONOCYTES # (AUTO) 0.7 10^3/uL (0.0-1.0); NEUTROPHILS # (AUTO) 14.8 10^3/uL (1.5-6.6); NEUTROPHILS % (AUTO) 87.3 %; PLT - PLATELET COUNT 238 10^3/uL (130-450); RED BLOOD COUNT 4.07 10^6/uL (4.20-5.40); RED CELL DISTRIBUTION WIDTH 12.4 % (12.0-15.0)
[2023-08-10 05:47] LABS: ALBUMIN 4.1 g/dL (3.2-5.5); ALBUMIN/GLOBULIN RATIO 1.7 (1.0-2.2); ALKALINE PHOSPHATASE 104 IU/L (42-121); ALT ALANINE AMINOTRANSFERASE 12 IU/L (10-60); AST ASPARTATE AMINOTRANSFERASE 17 IU/L (10-42); BILIRUBIN,TOTAL 0.8 mg/dL (0.2-1.0); BUN - BLOOD UREA NITROGEN 21 mg/dL (6-20); CALCIUM 9.3 mg/dL (8.5-10.3); CARBON DIOXIDE - CO2 27 mmol/L (21-32); CHLORIDE 104 mmol/L (101-111); CREATININE 0.8 mg/dL (0.6-1.3); GFR - MDRD 68 (>89); GLUCOSE 157 mg/dL (74-104); LIPASE < 10 U/L (11-82); POTASSIUM 4.1 mmol/L (3.5-4.5); SODIUM 138 mmol/L (135-145); TOTAL PROTEIN 6.5 g/dL (6.4-8.9)
[2023-08-10 05:49] LABS: WHITE BLOOD COUNT 16.9 x10^3/uL (4.8-10.8)
[2023-08-10 05:54] LABS: INR 1.3 (0.8-1.2); PT - PROTHROMBIN TIME 13.7 secs (9.9-12.6)
[2023-08-10] MEDS ORDERED: lidocaine 1% 20 ML MDV SUBQ STA (06:10)
[2023-08-10] MEDS ORDERED: iohexoL-300 100 ML VIAL IVP ONE (07:01)
--- NOTE | 2023-08-10 07:36 | CT Report ---
PROCEDURE: HEAD WO INDICATIONS: fall, takes eliquis TECHNIQUE: Noncontrast 4.5 mm thick angled axial sections acquired from the foramen magnum to the vertex. For r adiation dose reduction, the following was used: automated exposure control, adjustment of mA and/or kV according to patient size. COMPARISON: 07/25/2023 FINDINGS: Image quality: Excellent. CSF spaces: Basal cisterns are patent. No extra-axial fluid collections. Ventricles are normal in size and shape. Brain: No midline shift. No intracranial masses or hemorrhage. Yanez-white matter interface is norm al. Skull and face: Left frontal and periorbital scalp hematoma. No change in focal discontinuity of the greater wing of the left sphenoid. Calvarium and visualized facial bones are otherwise intact, witho ut suspicious lesions. Sinuses: Visualized sinuses and mastoids are clear. IMPRESSION: 1. No acute intracranial abnormality. 2. No change in possible chronic left greater sphenoid wing fracture. 3. Left frontal and periorbital hematoma. Reviewed by: Js Nieto MD on 08/10/2023 7:35 AM PDT Approved by: Js Nieto MD on 08/10/2023 7:35 AM PDT Station ID: [id number]
--- NOTE | 2023-08-10 07:39 | CT Report ---
PROCEDURE: MAXILLOFACIAL WO INDICATIONS: fall, facial swelling and lacerations TECHNIQUE: Noncontrast 1.5 mm thick axial images acquired from the mandible through the frontal sinuses, with co amaury and sagittal reformatting. For radiation dose reduction, the following was used: automated ex posure control, adjustment of mA and/or kV according to patient size. COMPARISON: 07/25/2023 FINDINGS: Image quality: Degraded by technical factors. Bones and teeth: No change in mild focal chronic discontinuity of the greater wing of the left sphen oid. Orbital lemons are otherwise intact. Sinus lemons show no fracture or deformity. Nasal bones and septum are intact. Visualized portions of the mandible demonstrate no fractures or subluxation. Zy gomatic arches are intact. Pterygoid plates are intact. Visualized portions of the skull base and a uditory canals are intact. Sinuses: Paranasal small amount of left sphenoid fluid. Mastoid air cells are aerated. Soft tissues: Left periorbital and left frontal scalp hematoma. Vascular: Visualized vascular structures appear normal in the absence of contrast. Bony vascular fo ramina and canals are intact. IMPRESSION: 1. No acute fracture. 2. Sphenoid sinus fluid. 3. Left frontal and periorbital hematoma. Reviewed by: Js Nieto MD on 08/10/2023 7:38 AM PDT Approved by: Js Nieto MD on 08/10/2023 7:38 AM PDT Station ID: [id number]
--- NOTE | 2023-08-10 07:42 | CT Report ---
PROCEDURE: CHEST W INDICATIONS: fall, dementia, takes eliquis CONTRAST: 100 ML OMNI 300 TECHNIQUE: After the administration of intravenous contrast, 1 mm axial images were acquired from the pulmonary apices through the posterior costophrenic angles. Axial 5 mm soft tissue kernel reconstructions were performed as well as 8 mm axial MIP and coronal and sagittal 5 mm reformations. For radiation dose reduction, the following was used: automated exposure control, adjustment of mA and/or kV according to patient size. COMPARISON: None. FINDINGS: Image quality: Excellent. Lungs and pleura: No consolidation. No pleural effusions. No pneumothorax. No suspicious pulmonary n odules which require follow up. Mediastinum: Heart size is enlarged. No pericardial effusion. No large vessel abnormality. No mediast inal adenopathy by size criteria. Chest wall and lower neck: Thyroid is unremarkable. No axillary or supraclavicular adenopathy by size . Bones: No aggressive osseous abnormality. Upper Abdomen: Unremarkable. IMPRESSION: No acute process. Reviewed by: Js Nieto MD on 08/10/2023 7:41 AM PDT Approved by: Js Nieto MD on 08/10/2023 7:41 AM PDT Station ID: [id number]
--- NOTE | 2023-08-10 07:44 | CT Report ---
PROCEDURE: ABDOMEN/PELVIS W INDICATIONS: unwitnessed fall, dementia, takes eliquis CONTRAST: 100 ML OMNI 300 TECHNIQUE: After the administration of intravenous contrast, 5 mm thick sections acquired from the diaphragms to the symphysis. 5 mm thick coronal and sagittal reformats were acquired. For radiation dose reducti on, the following was used: automated exposure control, adjustment of mA and/or kV according to shin ent size. COMPARISON: 03/16/2023 FINDINGS: Image quality: Excellent. Lung bases and heart: Unremarkable. Liver: No solid mass. Gallbladder and biliary tree: Gallbladder is within normal limits. No biliary ductal dilatation. Spleen: No splenomegaly. Pancreas: No pancreatic ductal dilation. Adrenals: No adrenal nodule. Kidneys and ureters: No hydronephrosis. No renal cystic lesion which requires follow up. No solid mas s. Bowel and peritoneum: No bowel distension. No pathologic free fluid. Lymph nodes: No central or retroperitoneal adenopathy. Vessels: No infrarenal aortic aneurysm. PELVIS Reproductive organs: Unremarkable. Bladder: No abnormal wall thickening, accounting for underdistension. Pelvic lymph nodes: No pelvic adenopathy by size criteria. Bones: No aggressive osseous abnormality. Other: No significant ventral or inguinal hernia. IMPRESSION: No acute process. Reviewed by: Js Nieto MD on 08/10/2023 7:43 AM PDT Approved by: Js Nieto MD on 08/10/2023 7:43 AM PDT Station ID: [id number]
--- NOTE | 2023-08-10 07:46 | CT Report ---
PROCEDURE: CERVICAL SPINE WO INDICATIONS: fall, head injury, dementia TECHNIQUE: Noncontrast 3 mm thick sections acquired from the skull base to the T4 level. Sagittal and coronal r eformats were then constructed. For radiation dose reduction, the following was used: automated exp osure control, adjustment of mA and/or kV according to patient size. COMPARISON: 07/25/2023 FINDINGS: Image quality: Excellent. Bones: No fractures or dislocations. Visualized superior ribs are intact. Soft tissues: Prevertebral soft tissues are normal in thickness. No paravertebral hematomas. No ap ical pneumothoraces. IMPRESSION: No acute fracture. No osseous lesion. If symptoms and/or clinical suspicion for pathology continue, f urther assessment with MRI or bone scan is recommended for further assessment. . Reviewed by: Js Nieto MD on 08/10/2023 7:45 AM PDT Approved by: Js Nieto MD on 08/10/2023 7:45 AM PDT Station ID: [id number]
[2023-08-10 08:46] VITALS: BP 114/66; O2SAT 95
== END 2023-08-10 08:42 | disposition home or self-care (01) ==
LOC: ED 05:06
DX: S05.12XA Contusion of eyeball and orbital tissues, left eye, initial encounter (principal); S01.112A Laceration without foreign body of left eyelid and periocular area, initial encounter; W19.XXXA Unspecified fall, initial encounter; Y92.129 Unspecified place in nursing home as the place of occurrence of the external cause; I48.91 Unspecified atrial fibrillation; Z79.01 Long term (current) use of anticoagulants; F03.90 Unspecified dementia, unspecified severity, without behavioral disturbance, psychotic disturbance, mood disturbance, and anxiety; R41.0 Disorientation, unspecified
CPT/HCPCS: 12011; 36415; 70450; 70486; 71260; 72125; 74177; 80053; 83690; 85025; 85610; 85730; 93005; 99283; 99284; Q9967

== ENCOUNTER 2023-08-10 08:32 | Outpatient (CLI) | payer MEDICARE, OTHER | END 2023-08-10 08:33 | disposition home or self-care (01) | LOC: EMS 08:32 | PROVIDERS: ATTEND Emergency Medicine | DX: R41.0 Disorientation, unspecified (principal); S09.90XA Unspecified injury of head, initial encounter; W01.0XXA Fall on same level from slipping, tripping and stumbling without subsequent striking against object, initial encounter | CPT/HCPCS: A0425; A0428 ==

== ENCOUNTER 2023-08-12 10:30 | Outpatient (CLI) | payer MEDICARE, OTHER | END 2023-08-12 10:31 | disposition critical access hospital (66) | LOC: EMS 10:30 | DX: R29.810 Facial weakness (principal); R41.82 Altered mental status, unspecified | CPT/HCPCS: A0425; A0429 ==

== ENCOUNTER 2023-08-12 10:49 | Emergency (ER) | payer MEDICARE, OTHER ==
[2023-08-12 11:03] LABS: BASOPHILS % (AUTO) 0.5 %; EOSINOPHILS # (AUTO) 0.1 10^3/uL (0.0-0.7); EOSINOPHILS % (AUTO) 0.9 %; HCT - HEMATOCRIT 39.5 % (37.0-47.0); HGB - HEMOGLOBIN 12.7 g/dL (12.0-16.0); LYMPHOCYTES # (AUTO) 1.2 10^3/uL (1.5-3.5); MEAN CORPUSCULAR HEMOGLOBIN 32.6 pg (27.0-31.0); MEAN CORPUSCULAR HGB CONC 32.2 g/dL (32.0-36.0); MEAN CORPUSCULAR VOLUME 101.5 fL (81.0-99.0); MEAN PLATELET VOLUME 9.3 fL (7.9-10.8); MONOCYTES # (AUTO) 0.9 10^3/uL (0.0-1.0); MONOCYTES % (AUTO) 10.3 %; NEUTROPHILS # (AUTO) 6.5 10^3/uL (1.5-6.6); PLT - PLATELET COUNT 229 10^3/uL (130-450); RED BLOOD COUNT 3.89 10^6/uL (4.20-5.40); RED CELL DISTRIBUTION WIDTH 12.4 % (12.0-15.0); WHITE BLOOD COUNT 8.8 x10^3/uL (4.8-10.8)
[2023-08-12 11:05] VITALS: BP 113/71; O2SAT 98
[2023-08-12 11:12] LABS: INR 1.2 (0.8-1.2); PT - PROTHROMBIN TIME 13.5 secs (9.9-12.6)
[2023-08-12 11:17] LABS: ALBUMIN 4.1 g/dL (3.2-5.5); ALBUMIN/GLOBULIN RATIO 1.6 (1.0-2.2); ALKALINE PHOSPHATASE 98 IU/L (42-121); ALT ALANINE AMINOTRANSFERASE 14 IU/L (10-60); AST ASPARTATE AMINOTRANSFERASE 19 IU/L (10-42); BUN - BLOOD UREA NITROGEN 24 mg/dL (6-20); CALCIUM 9.5 mg/dL (8.5-10.3); CARBON DIOXIDE - CO2 27 mmol/L (21-32); CHLORIDE 106 mmol/L (101-111); CREATININE 0.8 mg/dL (0.6-1.3); GFR - MDRD 68 (>89); GLUCOSE 106 mg/dL (74-104); POTASSIUM 3.5 mmol/L (3.5-4.5); SODIUM 140 mmol/L (135-145); TOTAL PROTEIN 6.7 g/dL (6.4-8.9)
[2023-08-12 11:19] LABS: LIPASE < 10 U/L (11-82)
[2023-08-12] MEDS ORDERED: SODIUM CHLORIDE 0.9% 1,000 ML IV STA (11:20)
--- NOTE | 2023-08-12 11:24 | XRAY Report ---
PROCEDURE: Chest 1 View X-Ray INDICATIONS: AMS TECHNIQUE: One view of the chest was acquired. COMPARISON: None FINDINGS: Surgical changes and devices: None. Lungs and pleura: No pleural effusions or pneumothorax. Lungs are clear. Low lung volumes accentua te pulmonary interstitium and heart size. Mediastinum: Mediastinal contours appear normal. Heart size is normal. Bones and chest wall: No suspicious bony lesions. Overlying soft tissues appear unremarkable. IMPRESSION: No acute cardiopulmonary findings Reviewed by: Fabio Bustamante MD on 08/12/2023 10:22 AM [facility] Approved by: Fabio Bustamante MD on 08/12/2023 10:22 AM [facility] Station ID: [id number]
--- NOTE | 2023-08-12 11:48 | CT Report ---
PROCEDURE: CT brain without contrast INDICATIONS: AMS/recent head injury TECHNIQUE: Helical axial CT of the brain was obtained without contrast and reformatted in multiple p lanes. Radiation dose reduction was achieved using automated exposure control or adjustment of mA and /or kV according to patient size. COMPARISON: None FINDINGS: CSF spaces: Ventricles are appropriate in size and position. No hydrocephalus. Basal cisterns unre markable. Brain: Severe atrophy and confluent white matter chronic ischemic change noted. Atherosclerotic vascu lar calcification noted in the cavernous segments of both internal carotid arteries. Right frontal o ld infarct noted Skull and face: Calvarium and skull base are unremarkable without suspicious lesion. Left periorbita l soft tissue hematoma remains unchanged. Edema has improved. Left ocular scleral banding and bilater al lens replacements noted. Sinuses: Visualized sinuses and mastoids are clear. IMPRESSION: Atrophy and chronic ischemic change without intracranial hemorrhage or mass effect Reviewed by: Fabio Bustamante MD on 08/12/2023 10:47 AM [facility] Approved by: Fabio Bustamante MD on 08/12/2023 10:47 AM [facility] Station ID: [id number]
[2023-08-12 11:55] LABS: BILIRUBIN,URINE NEGATIVE (NEGATIVE); CLARITY,URINE CLEAR (CLEAR); GLUCOSE, URINE (UA) NEGATIVE (NEGATIVE); KETONES,URINE (UA) TRACE mg/dL (NEGATIVE); LEUKOCYTE ESTERASE, URINE NEGATIVE (NEGATIVE); NITRITE,URINE NEGATIVE (NEGATIVE); OCCULT BLOOD,URINE NEGATIVE (NEGATIVE); PROTEIN,URINE NEGATIVE (NEGATIVE); UROBILINOGEN,URINE 0.2 (NORMAL) E.U./dL (NORMAL)
--- NOTE | 2023-08-12 12:53 | ED Physician Documentation ---
History of Present Illness - Stated complaint Stated Complaint: GLF X2 DAYS AGO/AMS - Chief complaint Chief Complaint: Neuro - History obtained from History obtained from: EMS - Additonal information Additional information: Patient is a 83-year-old female with a history of Alzheimer's presenting for evaluation for altered mental status in the setting of a ground-level fall. Patient was seen here 2 days ago [facility]. She is on Eliquis. She had multiple CT scans and a laceration at that was sutured. She was discharged home. Per facility she has not gone back to her baseline since the fall. They were concerned that maybe she had a little bit of a left-sided lower facial droop this morning. At her baseline she is alert and oriented x1. Per family member who is here she has some days where she is more confused than others and often falls asleep easily. She was recently treated for urinary tract infection. Review of Systems Unable to obtain: Dementia PD PAST MEDICAL HISTORY - Past Medical History Cardiovascular: Atrial fibrillation Respiratory: None Neuro: Dementia Endocrine/Autoimmune: None GI: None HEALTH AND SAFETY DIRECTOR: None : None HEENT: None Psych: None Musculoskeletal: Fibromyalgia Derm: None - Past Surgical History Past Surgical History: Yes /HEALTH AND SAFETY DIRECTOR: Hysterectomy Neuro:  HEENT: Cataracts - Present Medications Home Medications: Ambulatory Orders Medication Instructions Recorded Confirmed Donepezil HCl [Donepezil HCl Odt] 10 mg PO DAILY 05/07/22 08/12/23 Rosuvastatin Calcium [Crestor] 20 mg PO DAILY 05/07/22 08/12/23 DULoxetine [Cymbalta] 60 mg PO DAILY 03/16/23 08/12/23 Apixaban [Eliquis] 5 mg PO BID #60 tablet 03/25/23 08/12/23 Cholecalciferol [Vitamin D3] 50 mcg PO DAILY #30 tab 03/25/23 08/12/23 Digoxin [Lanoxin] 125 mcg PO UD #22 tab 03/25/23 08/12/23 Furosemide [Lasix] 40 mg PO DAILY #30 tab 03/25/23 08/12/23 Metoprolol Succinate [Toprol Xl] 75 mg PO 799,1999 #90 tab 03/25/23 08/12/23 Potassium Chloride [Micro-K] 20 meq PO DAILY #60 cap 03/25/23 08/12/23 Spironolactone [Aldactone] 25 mg PO 1600 #30 tab 03/25/23 08/12/23 lisinopriL [Zestril] 2.5 mg PO QPM #15 tab 03/25/23 08/12/23 - Allergies Allergies/Adverse Reactions: Allergies Allergy/AdvReac Type Severity Reaction Status Date / Time meperidine [From Demerol] Allergy Unknown Verified 08/12/23 10:56 vitamin E (d-alpha Allergy Unknown Verified 08/12/23 10:56 tocopherol) - Social History Does the pt smoke?: No Smoking Status: Never smoker Does the pt drink ETOH?: No Does the pt have substance abuse?: No - Immunizations Immunizations are current?: Yes - POLST Patient has POLST: No PD ED PE NORMAL - General General: No acute distress, Well developed/nourished. No: Alert and oriented X 3 (Alert and oriented to person only) - HEENT HEENT: PERRL, Moist mucous membranes, Pharynx benign, Other (Bruising to forehead; and periorbital regions periorbital ecchymosis, healing laceration to left forehead) - Neck Neck: Supple, no meningeal sign - Cardiac Cardiac: RRR, Strong equal pulses - Respiratory Respiratory: No respiratory distress, Clear bilaterally - Abdomen Abdomen: Soft, Non tender, Non distended - Derm Derm: Warm and dry - Extremities Extremities: No deformity - Neuro Neuro: No motor deficit, Other (No facial asymmetry, follows some commands). No: Alert and oriented X 3 (Alert and oriented to person only) Eye Opening: Spontaneous Motor: Obeys Commands Verbal: Confused GCS Score: 14 Results - Vitals Vitals: Vital Signs - 24 hr 08/12/23 10:56 Temperature 36.9 C Heart Rate 75 Respiratory 18 Rate Blood Pressure 113/71 O2 Saturation 98 Oxygen O2 Source Room air - EKG (time done) 1148 EKG releavant findings:: EKG personally interpreted by author of this note. Relevant findings are: Rate 68,Sinus rhythm, no STEMI, DE 91 - Labs Labs: Laboratory Tests 08/12/23 08/12/23 08/12/23 10:57 10:57 10:57 WBC 8.8 RBC 3.89 L Hgb 12.7 Hct 39.5 MCV 101.5 H MCH 32.6 H MCHC 32.2 RDW 12.4 Plt Count 229 MPV 9.3 Neut # (Auto) 6.5 Lymph # (Auto) 1.2 L [place] # (Auto) 0.9 Eos # (Auto) 0.1 Baso # (Auto) 0.0 Absolute Nucleated RBC 0.00 Nucleated RBC % 0.0 PT 13.5 H INR 1.2 Sodium 140 Potassium 3.5 Chloride 106 Carbon Dioxide 27 Anion Gap 7.0 BUN 24 H Creatinine 0.8 Estimated GFR (MDRD) 68 L Glucose 106 H Calcium 9.5 Total Bilirubin 1.0 AST 19 ALT 14 Alkaline Phosphatase 98 Total Protein 6.7 Albumin 4.1 Globulin 2.6 Albumin/Globulin Ratio 1.6 Lipase < 10 L Urine Color Urine Clarity Urine pH Ur Specific [place] Urine Protein Urine Glucose (UA) Urine Ketones Urine Occult Blood Urine Nitrite Urine Bilirubin Urine Urobilinogen Ur Leukocyte Esterase Ur Microscopic Review Urine Culture Comments 08/12/23 11:32 WBC RBC Hgb Hct MCV MCH MCHC RDW Plt Count MPV Neut # (Auto) Lymph # (Auto) [place] # (Auto) Eos # (Auto) Baso # (Auto) Absolute Nucleated RBC Nucleated RBC % PT INR Sodium Potassium Chloride Carbon Dioxide Anion Gap BUN Creatinine Estimated GFR (MDRD) Glucose Calcium Total Bilirubin AST ALT Alkaline Phosphatase Total Protein Albumin Globulin Albumin/Globulin Ratio Lipase Urine Color YELLOW Urine Clarity CLEAR Urine pH 6.0 Ur Specific [place] 1.025 Urine Protein NEGATIVE Urine Glucose (UA) NEGATIVE Urine Ketones TRACE Urine Occult Blood NEGATIVE Urine Nitrite NEGATIVE Urine Bilirubin NEGATIVE Urine Urobilinogen 0.2 (NORMAL) Ur Leukocyte Esterase NEGATIVE Ur Microscopic Review NOT INDICATED Urine Culture Comments NOT INDICATED PD Medical Decision Making - ED course Complexity details: reviewed results, re-evaluated patient, d/w family (family friend) ED course: Patient is an 83-year-old female with a history of Alzheimer's at a memory care facility presenting with concerns regarding worsening mental status after having had a ground-level fall and head injury a few days ago. She was initially seen for her head injury with unremarkable work-up. On arrival she is awake and alert to herself and follows commands. This does not appear to be significantly off than her baseline when I reviewed prior notes and also by comparison with the nurse who also saw her a few days ago and is here today. She has no focal deficits. There is no signs of facial asymmetry. A repeat head CT was obtained without signs of a bleed. Repeat labs are also unrevealing. Per family friend who has been here at the bedside patient appears similar to her baseline with at times opening her eyes and following commands and being conversant and other times drifting off to sleep which she often does anyways. Patient was able to sit herself up on the edge of the bed but did not want to walk with the nurse. She has good range of motion of her hips without any elicited pain. Therefore I suspect she is somewhat near her baseline And does not have any findings to warrant hospitalization at this time. RN spoke with facility who also feels comfortable in receiving her back. Departure - Departure Disposition: 01 Home, Self Care Clinical Impression: Head injury, Facial bruising, Alzheimer's dementia Condition: Stable Instructions: ED Head Injury Closed Comments: Your CT scan and labs were repeated today. We do not see signs of bleeding inside your brain from your recent fall. Your labs are also reassuring with normal electrolytes. Your urine does not show an infection. At this time we are not seeing any reason to hospitalize you. It may take you longer to recover from your head injury and would recommend close follow-up with your primary care provider. Return to the ER with any worsening symptoms. Forms: PCP List Discharge Date/Time: 08/12/23 14:55
== END 2023-08-12 14:55 | disposition home or self-care (01) ==
LOC: EDUNIT# → ED 10:49
DX: S09.90XA Unspecified injury of head, initial encounter (principal); S00.83XA Contusion of other part of head, initial encounter; W18.30XA Fall on same level, unspecified, initial encounter; Y92.129 Unspecified place in nursing home as the place of occurrence of the external cause; G30.9 Alzheimer's disease, unspecified; F02.80 Dementia in other diseases classified elsewhere, unspecified severity, without behavioral disturbance, psychotic disturbance, mood disturbance, and anxiety; I48.91 Unspecified atrial fibrillation; Z79.01 Long term (current) use of anticoagulants; Z79.899 Other long term (current) drug therapy
CPT/HCPCS: 36415; 80053; 81001; 81003; 83690; 85025; 85610; 87086; 93005; 99283; 99284

== ENCOUNTER 2023-12-24 11:30 | Outpatient (CLI) | payer MEDICARE, OTHER | END 2023-12-24 23:59 | disposition home or self-care (01) | LOC: PC 11:30 | PROVIDERS: ATTEND Nurse Practitioner Gerontology | DX: Z51.5 Encounter for palliative care (principal); R29.6 Repeated falls; R32 Unspecified urinary incontinence; S60.221D Contusion of right hand, subsequent encounter; S00.83XD Contusion of other part of head, subsequent encounter; Z79.01 Long term (current) use of anticoagulants; I48.91 Unspecified atrial fibrillation; G30.9 Alzheimer's disease, unspecified; F02.80 Dementia in other diseases classified elsewhere, unspecified severity, without behavioral disturbance, psychotic disturbance, mood disturbance, and anxiety; Z71.89 Other specified counseling | CPT/HCPCS: 99310; G0317; 99418 ==

== ENCOUNTER 2024-01-24 08:00 | Outpatient (CLI) | payer MEDICARE, OTHER | END 2024-01-24 23:59 | disposition home or self-care (01) | LOC: PC 08:00 | PROVIDERS: ATTEND Nurse Practitioner Gerontology | DX: Z51.5 Encounter for palliative care (principal); F03.90 Unspecified dementia, unspecified severity, without behavioral disturbance, psychotic disturbance, mood disturbance, and anxiety; Z74.1 Need for assistance with personal care; I11.0 Hypertensive heart disease with heart failure; I50.22 Chronic systolic (congestive) heart failure; I48.91 Unspecified atrial fibrillation; Z74.09 Other reduced mobility; Z91.81 History of falling; Z79.899 Other long term (current) drug therapy | CPT/HCPCS: 99309 ==

== ENCOUNTER 2024-03-26 08:00 | Outpatient (CLI) | payer MEDICARE, OTHER | END 2024-03-26 23:59 | disposition home or self-care (01) | LOC: PC 08:00 | PROVIDERS: ATTEND Nurse Practitioner Gerontology | DX: Z51.5 Encounter for palliative care (principal); F01.54 Vascular dementia, unspecified severity, with anxiety; I69.90 Unspecified sequelae of unspecified cerebrovascular disease; I11.0 Hypertensive heart disease with heart failure; I50.22 Chronic systolic (congestive) heart failure; I48.91 Unspecified atrial fibrillation; R32 Unspecified urinary incontinence; R00.0 Tachycardia, unspecified; Z79.899 Other long term (current) drug therapy; Z66 Do not resuscitate; Z91.81 History of falling; Z99.3 Dependence on wheelchair; Z74.1 Need for assistance with personal care | CPT/HCPCS: 99350 ==

== ENCOUNTER 2024-04-29 08:00 | Outpatient (CLI) | payer MEDICARE, OTHER | END 2024-04-29 23:59 | disposition home or self-care (01) | LOC: PC 08:00 | PROVIDERS: ATTEND Nurse Practitioner Gerontology | DX: Z51.5 Encounter for palliative care (principal); J69.0 Pneumonitis due to inhalation of food and vomit; R05.1 Acute cough; R06.2 Wheezing; I48.0 Paroxysmal atrial fibrillation; F01.50 Vascular dementia, unspecified severity, without behavioral disturbance, psychotic disturbance, mood disturbance, and anxiety; Z66 Do not resuscitate | CPT/HCPCS: 99349 ==

== ENCOUNTER 2024-05-06 08:00 | Outpatient (CLI) | payer MEDICARE, OTHER | END 2024-05-06 23:59 | disposition home or self-care (01) | LOC: PC 08:00 | PROVIDERS: ATTEND Nurse Practitioner Gerontology | DX: Z51.5 Encounter for palliative care (principal); F01.50 Vascular dementia, unspecified severity, without behavioral disturbance, psychotic disturbance, mood disturbance, and anxiety | CPT/HCPCS: 99426 ==

== ENCOUNTER 2024-05-11 08:00 | Outpatient (CLI) | payer MEDICARE, OTHER | END 2024-05-11 23:59 | disposition home or self-care (01) | LOC: PC 08:00 | PROVIDERS: ATTEND Nurse Practitioner Gerontology | DX: Z51.5 Encounter for palliative care (principal); F01.54 Vascular dementia, unspecified severity, with anxiety; R50.9 Fever, unspecified; R05.9 Cough, unspecified; Z99.3 Dependence on wheelchair; Z79.899 Other long term (current) drug therapy; Z91.81 History of falling; L03.116 Cellulitis of left lower limb | CPT/HCPCS: 99347 ==